=== PATIENT | male | born 1960 | race Hispanic/Latino ===

== ENCOUNTER 2019-09-15 10:13 | Emergency (ER) | payer OTHER ==
--- NOTE | 2019-09-15 10:38 | ER ---
Nurse's Notes [facility] Name: Noé Yang Age: 59 yrs Sex: Male : 1960 Arrival Date: 09/15/2019 Time: 10:20 Bed 19 Private MD: Diagnosis: Foreign body on external eye, part unspecified, right eye;Conjunctivitis Presentation: 09/14 10:31 Chief complaint: Patient states: R eye swelling and redness that began this morning. ss Coronavirus screen: Patient denies fever greater than 100.4F, cough, shortness of breath, or difficulty breathing. Proceed with normal triage process. Ebola Screen: Patient denies exposure to infectious person. Patient denies travel to an Ebola-affected area in the 21 days before illness onset. Initial Sepsis Screen: Does the patient meet any 2 criteria? No. Patient's initial sepsis screen is negative. Does the patient have a suspected source of infection? No. Patient's initial sepsis screen is negative. Risk Assessment: Do you want to hurt yourself or someone else? Patient reports no desire to harm self or others. 10:31 Method Of Arrival: Ambulatory ss 10:31 Acuity: ALVARO 5 ss Historical: - Allergies: 10:33 Actos; ss 10:33 metformin; ss 10:33 victoza; ss - Home Meds: 10:48 Victoza Sub Q [Active]; Novolin N Sub-Q [Active]; tw2 - PMHx: 10:33 Diabetes - IDDM; Hepatitis; ss - PSHx: 10:33 BKA; ss - Immunization history:: Adult Immunizations up to date. - Social history:: Smoking status: Patient denies any tobacco usage or history of. - Family history:: not pertinent. - Hospitalizations: : No recent hospitalization is reported. Screenin:26 Abuse screen: Denies threats or abuse. Nutritional screening: No deficits noted. tw2 Tuberculosis screening: No symptoms or risk factors identified. Fall Risk None identified. Assessment: 10:30 General: Appears in no apparent distress. slender, Behavior is calm, cooperative, tw2 appropriate for age. Pain: Denies pain. Neuro: Level of Consciousness is awake, alert, obeys commands, Oriented to person, place, time, situation. Cardiovascular: Patient's skin is warm and dry. Respiratory: Airway is patent Respiratory effort is even, unlabored, Respiratory pattern is regular, symmetrical. GI: No signs and/or symptoms were reported involving the gastrointestinal system. : No signs and/or symptoms were reported regarding the genitourinary system. EENT: Reports increased swelling and redness to eyes. Derm: No signs and/or symptoms reported regarding the dermatologic system. Musculoskeletal: Amputation of right knee. Range of motion:. 10:45 Reassessment: Patient appears in no apparent distress at this time. No changes from tw2 previously documented assessment. Patient and/or family updated on plan of care and expected duration. Pain level reassessed. Patient is alert, oriented x 3, equal unlabored respirations, skin warm/dry/pink. Vital Signs: 10:31 BP 135 / 84; Pulse 77; Resp 17; Temp 97.0(TE); Pulse Ox 100% on R/A; Weight 70.31 kg; ss Height 5 ft. 6 in. (167.64 cm); Pain 0/10; 10:31 Body Mass Index 25.02 (70.31 kg, 167.64 cm) ED Course: 10:20 Patient arrived in ED. mr 10:22 Philippe Rader MD is Attending Physician. rn 10:22 Bed in low position. tw2 10:25 France Lagos RN is Primary Nurse. tw2 10:32 Triage completed. ss 10:33 Arm band placed on right wrist. ss 10:45 No provider procedures requiring assistance completed. Patient did not have IV access tw2 during this emergency room visit. Administered Medications: No medications were administered Outcome: 10:37 Discharge ordered by . rn 10:45 Patient left the ED. tw2 10:45 Discharged to home ambulatory. tw2 10:45 Condition: stable 10:45 Discharge instructions given to patient, Instructed on discharge instructions, follow up and referral plans. Demonstrated understanding of instructions, follow-up care, medications, Prescriptions given X 1. Signatures: LuiPrincess mr Philippe Rader MD MD rn Smirch, Shelby, RN RN France Lagos RN RN tw2 Corrections: (The following items were deleted from the chart) 10:50 10:30 Musculoskeletal: Range of motion: intact in all extremities, tw2 tw2
--- NOTE | 2019-09-15 10:38 | EDPHYS ---
Physician Documentation [facility] Name: Noé Yang Age: 59 yrs Sex: Male : 1960 Arrival Date: 09/15/2019 Time: 10:20 Bed 19 Private MD: ED Physician Philippe Rader HPI: 09/14 10:31 This 59 yrs old Male presents to ER via Unassigned with complaints of Eye rn Swelling. 10:31 The patient is experiencing tearing, swelling, to the right eye, caused by an unknown rn mechanism. Onset: The symptoms/episode began/occurred yesterday. Duration: the symptoms are intermittent. Aggravated by nothing. Alleviated by nothing. Patient wears glasses. Severity of symptoms: At their worst the symptoms were mild in the emergency department the symptoms are unchanged. The patient has not experienced similar symptoms in the past. Reports was helping someone move stuff in storage room yesterday, thinks some dust or something might have gotten into eye, + mild clear drainage with small amount for swelling of eyelids. No fever. No splash of chemical noted, does not use contacts. . Historical: - Allergies: 10:33 Actos; ss 10:33 metformin; ss 10:33 victoza; ss - Home Meds: 10:48 Victoza Sub Q [Active]; Novolin N Sub-Q [Active]; tw2 - PMHx: 10:33 Diabetes - IDDM; Hepatitis; ss - PSHx: 10:33 BKA; ss - Immunization history:: Adult Immunizations up to date. - Social history:: Smoking status: Patient denies any tobacco usage or history of. - Family history:: not pertinent. - Hospitalizations: : No recent hospitalization is reported. ROS: 10:31 Constitutional: Negative for fever, chills, and weight loss, Eyes: + mild right eye rn swelling and clear drainage ENT: Negative for injury, pain, and discharge, Skin: Negative for injury, rash, and discoloration, Neuro: Negative for headache, weakness, numbness, tingling, and seizure. Exam: 10:31 Constitutional: This is a well developed, well nourished patient who is awake, alert, rn and in no acute distress. Head/Face: Normocephalic, atraumatic. Eyes: Pupils equal round and reactive to light, extra-ocular motions intact. + mild erythema of conjunctiva, + clear ocular drainage, no hyphema or hypopyon. + small black foreign body identified in periphery of lower eyelid, removed with cotton swab. Skin: warm, dry, no fluctuance/warmth/erythema surrounding right eye, no evidence of periorbital cellulitis. Vital Signs: 10:31 BP 135 / 84; Pulse 77; Resp 17; Temp 97.0(TE); Pulse Ox 100% on R/A; Weight 70.31 kg; ss Height 5 ft. 6 in. (167.64 cm); Pain 0/10; 10:31 Body Mass Index 25.02 (70.31 kg, 167.64 cm) ss Procedures: 10:31 Foreign Body Removal: dust, from the right eye, by using a cotton-tipped swab, The rn patient tolerated the removal well. MDM: 10:22 Patient medically screened. rn 10:31 Differential diagnosis: Foreign body in Data reviewed: vital signs, nurses notes, and rn as a result, I will discharge patient. Counseling: I had a detailed discussion with the patient and/or guardian regarding: the historical points, exam findings, and any diagnostic results supporting the discharge/admit diagnosis, the need for outpatient follow up, to return to the emergency department if symptoms worsen or persist or if there are any questions or concerns that arise at home. Special discussion: I discussed with the patient/guardian in detail that at this point there is no indication for admission to the hospital. It is understood, however, that if the symptoms persist or worsen the patient needs to return immediately for re-evaluation. Administered Medications: No medications were administered Disposition: 09/15/19 10:37 Discharged to Home. Impression: Foreign body on external eye, part unspecified, right eye, Conjunctivitis. - Condition is Stable. - Discharge Instructions: Bacterial Conjunctivitis, Viral Conjunctivitis. - Prescriptions for Vigamox 0.5 % Ophthalmic Drops - instill 1 drop by OPHTHALMIC route every 8 hours for 7 days; 5 milliliter. - Medication Reconciliation Form, Thank You Letter, Antibiotic Education, Prescription Opioid Use form. - Follow up: Private Physician; When: As needed; Reason: Recheck today's complaints, Re-evaluation by your physician. - Problem is new. - Symptoms have improved. Signatures: Rader, PhilippeMD MD rama Shelby, RN RN ss France Lagos RN RN tw2 Corrections: (The following items were deleted from the chart) 10:45 10:37 09/15/2019 10:37 Discharged to Home. Impression: Foreign body on external eye, tw2 part unspecified, right eye; Conjunctivitis. Condition is Stable. Forms are Medication Reconciliation Form, Thank You Letter, Antibiotic Education, Prescription Opioid Use. Follow up: Private Physician; When: As needed; Reason: Recheck today's complaints, Re-evaluation by your physician. Problem is new. Symptoms have improved. rn
[2019-09-15 10:50] VITALS: BP 135/84; TEMP 97; O2SAT 100
== END 2019-09-15 10:45 | disposition home or self-care (01) ==
LOC: ER 10:13
PROC: 08C0XZZ Extirpation of Matter from Right Eye, External Approach (ICD-10-PCS; principal; 2019-09-15)
DX: T15.91XA Foreign body on external eye, part unspecified, right eye, initial encounter (principal); H10.9 Unspecified conjunctivitis; E11.9 Type 2 diabetes mellitus without complications; Z79.4 Long term (current) use of insulin; Z88.8 Allergy status to other drugs, medicaments and biological substances
CPT/HCPCS: 99282

== ENCOUNTER 2020-09-16 18:19 | Observation (INO) | payer OTHER ==
--- OUTSIDE RECORDS SUMMARY | 2020-09-16 18:25 | XMS REPORT | Continuity of Care Document ---
:1960 Author Organization [facility] t Address [address] [place] [address] Care Team Providers Name Role Phone Unavailable Unavailable Unavailable Problems This patient has no known problems. Allergies, Adverse Reactions, Alerts This patient has no known allergies or adverse reactions. Medications This patient has no known medications. Procedures This patient has no known procedures. Encounters Start End Encounter Admission Attending Care Care Encounter Source Date/Time Date/Time Type Type Clinicians Facility Department ID 2020-08-13 2020-08-13 Outpatient [facility] [id number] [facility] 2020-07-19 2020-07-19 Outpatient [facility] [id number] [facility] 2020-07-12 2020-07-12 Outpatient [facility] [id number] [facility] 2020-07-12 2020-07-12 Outpatient [facility] [id number] [facility] Results This patient has no known results.
[2020-09-16] MEDS ORDERED: ONDANSETRON 4 MG (ODT) TAB ONE (19:03)
[2020-09-16 19:32] LABS: Absolute Lymphocytes (CBC) 0.7 K/uL (0.7-4.9); Basophils % 0.2 % (0-1.3); Hematocrit 40.2 % (39.6-49.0); Lymphocytes % 6.1 % (15.3-44.8); MPV 8.5 fL (7.6-11.3); RBC Red Blood Cell Count 4.22 M/uL (4.33-5.43)
[2020-09-16 19:50] LABS: ALT/SGPT 29 U/L (12-78); AST/SGOT 24 U/L (15-37); Albumin 3.9 g/dL (3.4-5.0); Alkaline Phosphatase 108 U/L (45-117); BUN Blood Urea Nitrogen 30 mg/dL (7-18); Bicarbonate 24 mmol/L (21-32); Bilirubin Direct 0.3 mg/dL (0-0.2); Bilirubin Total 1.2 mg/dL (0.2-1.0); Glucose Level 224 mg/dL (74-106); NT PRO-BNP 308 pg/mL (<125); Potassium 3.8 mmol/L (3.5-5.1); Protein, Total 8.4 g/dL (6.4-8.2); Sodium Level 139 mmol/L (136-145); Troponin (Emerg Dept Use Only) < 0.02 ng/mL (0.0-0.045)
[2020-09-16 20:01] LABS: Protime INR 1.09
--- NOTE | 2020-09-16 20:05 | RAD REPORT ---
EXAM DESCRIPTION: Cinthia Single View09/16/2020 7:33 pm CLINICAL HISTORY: Chest pain COMPARISON: 2017 FINDINGS: The lungs appear clear of acute infiltrate. The heart is normal size IMPRESSION: No acute abnormalities displayed
[2020-09-16] MEDS ORDERED: MORPHINE 4 MG/ML SYR ONE (20:08)
[2020-09-16] MEDS ORDERED: NA CHLORIDE 0.9% 1,000 ML ONE (20:08)
[2020-09-16] MEDS ORDERED: PROMETHAZINE INJ 25 MG/ML AMP ONE (20:10)
[2020-09-16] MEDS ORDERED: FAMOTIDINE 20 MG/2 ML VIAL IV ONE (20:25)
--- NOTE | 2020-09-16 21:25 | ER ---
Nurse's Notes [facility] Name: Noé Yang Age: 60 yrs Sex: Male : 1960 Arrival Date: 09/16/2020 Time: 18:27 Bed 23 Private MD: Omega Horan Diagnosis: Chest pain, unspecified Presentation: 09/16 18:33 Chief complaint: Patient states: N/V/D and CP with SOB for 2 days. + chills, no known ll1 fever. Coronavirus screen: Client denies travel out of the [place] in the last 14 days. chills, fatigue, headache, muscle pain, runny nose, sore throat, vomiting. Client presents with at least one sign or symptom that may indicate coronavirus-19. Standard/surgical mask placed on the client. Ebola Screen: Patient denies travel to an Ebola-affected area in the 21 days before illness onset. Initial Sepsis Screen: Does the patient meet any 2 criteria? HR > 90 bpm. No. Patient's initial sepsis screen is negative. Does the patient have a suspected source of infection? Yes: Acute abdominal pain. Risk Assessment: Do you want to hurt yourself or someone else? Patient reports no desire to harm self or others. Onset of symptoms was September 15, 2020. 18:33 Method Of Arrival: Ambulatory ll1 18:33 Acuity: ALVARO 2 ss Historical: - Allergies: 18:36 Actos; ll1 18:36 metformin; ll1 18:36 victoza; ll1 - PMHx: 18:36 Diabetes - IDDM; Hepatitis; Hypertension; ll1 - PSHx: 18:36 BKA; ll1 - Immunization history:: Flu vaccine is not up to date. - Social history:: Smoking status: Patient denies any tobacco usage or history of. Patient/guardian denies using alcohol, street drugs, The patient lives with family. - Family history:: not pertinent. Screenin:22 Abuse screen: Denies threats or abuse. Nutritional screening: No deficits noted. vg1 Tuberculosis screening: No symptoms or risk factors identified. Fall Risk No fall in past 12 months (0 pts). No secondary diagnosis (0 pts). IV access (20 points). Ambulatory Aid- None/Bed Rest/Nurse Assist (0 pts). Gait- Impaired (20 pts.). Mental Status- Oriented to own ability (0 pts). Total Mc Fall Scale indicates Low Risk Score (25-44 pts). Fall prevention measures have been instituted. Side Rails Up X 2 Placed close to Nursing Station. Assessment: 19:19 General: Appears in no apparent distress. uncomfortable, Behavior is calm, cooperative. vg1 Pain: Complains of pain in chest, right upper quadrant and right lower quadrant Pain currently is 8 out of 10 on a pain scale. Neuro: Level of Consciousness is awake, alert, obeys commands, Oriented to person, place, time, situation. Cardiovascular: Patient's skin is warm and dry. Respiratory: Airway is patent Respiratory effort is even, unlabored. GI: Bowel sounds present X 4 quads. Abd is soft X 4 quads Abdomen is tender to palpation in right upper quadrant and right lower quadrant. : No signs and/or symptoms were reported regarding the genitourinary system. EENT: No signs and/or symptoms were reported regarding the EENT system. Derm: Skin is intact, is healthy with good turgor. Musculoskeletal: Amputation of Right BKA and Left pointer finger. 19:50 Reassessment: Received VO from DR Means to administer Phenergan 25 mg IVP x1. vg1 20:22 Reassessment: Patient appears in no apparent distress at this time. No changes from vg1 previously documented assessment. Patient and/or family updated on plan of care and expected duration. Pain level reassessed. Patient is alert, oriented x 3, equal unlabored respirations, skin warm/dry/pink. 21:39 Reassessment: Patient appears in no apparent distress at this time. Patient and/or vg1 family updated on plan of care and expected duration. Pain level reassessed. Patient is alert, oriented x 3, equal unlabored respirations, skin warm/dry/pink. Patient states feeling better. 23:06 Reassessment: Pt c/o ABD and Chest pain, rates pain as 8/10. Provider notified. vg1 23:23 Reassessment: Received VO from Latrell Avtar to change order of Aspirin 325 mg PO x1 to vg1 Aspirin chewable 324 mg PO x1. 09/17 00:30 Reassessment: Patient appears in no apparent distress at this time. Patient is alert, rr5 oriented x 3, equal unlabored respirations, skin warm/dry/pink. no complaints made. 01:20 Reassessment: Patient appears in no apparent distress at this time. Patient is alert, rr5 oriented x 3, equal unlabored respirations, skin warm/dry/pink. 02:25 Reassessment: Patient appears in no apparent distress at this time. Patient is alert, rr5 oriented x 3, equal unlabored respirations, skin warm/dry/pink. hospitalist informed for the BP 182/97 with order made and carried out. patient agreed to get medication for his BP. Vital Signs: 09/16 18:33 BP 188 / 96; Pulse 103; Resp 17; Temp 98.7; Pulse Ox 100% ; Weight 70.31 kg; Height 5 ll1 ft. 6 in. (167.64 cm); Pain 7/10; 19:21 BP 190 / 101; Pulse 103; Resp 20; Pulse Ox 100% on R/A; vg1 20:00 BP 168 / 88; Pulse 97; Resp 18; Pulse Ox 98% on R/A; vg1 21:00 BP 190 / 101; Pulse 90; Resp 22; Pulse Ox 98% on R/A; vg1 22:07 BP 199 / 101; Pulse 101; Resp 22; Pulse Ox 98% on R/A; vg1 23:00 BP 181 / 98; Pulse 98; Resp 18; Pulse Ox 98% on R/A; vg1 23:52 BP 163 / 80; Pulse 97; Resp 18; Pulse Ox 97% on R/A; vg1 09/17 01:20 BP 175 / 90; Pulse 92; Resp 17; Pulse Ox 98% ; rr5 02:23 BP 182 / 97; Pulse 99; Resp 19; Pulse Ox 97% ; rr5 02:36 BP 161 / 82; rr5 09/16 18:33 Body Mass Index 25.02 (70.31 kg, 167.64 cm) ll1 ED Course: 09/16 18:27 Patient arrived in ED. mr 18:27 Omega Horan, is Private Physician. mr 18:35 Triage completed. ll1 18:36 Arm band placed on. ll1 18:42 EKG completed in triage. Results shown to MD. ss 19:01 Sharath Means MD is Attending Physician. ma2 19:10 Jacey Llanos, KEYLA is Primary Nurse. vg1 19:15 Inserted saline lock: 22 gauge in right forearm, using aseptic technique. Blood ll1 collected. 19:22 Patient has correct armband on for positive identification. Placed in gown. Call light vg1 in reach. Side rails up X 1. 19:33 XRAY Chest (1 view) In Process Unspecified. EDMS 21:24 Sharath Means MD is Hospitalizing Provider. ma2 21:25 Hospitalizing Provider role handed off by Sharath Means MD ma2 21:25 Konrad Jeffries DO is Hospitalizing Provider. ma2 23:26 EKG done, by ED staff, reviewed by Sharath Means MD. vg1 23:[address] via stretcher. vg1 23:55 CT Abd/Pelvis - IV Contrast Only In Process Unspecified. EDMS 09/17 00:00 Report given to KEYLA Albarado. vg1 02:24 No provider procedures requiring assistance completed. Patient admitted, IV remains in rr5 place. intact, No redness/swelling at site. Administered Medications: 09/16 18:46 Drug: Zofran (Ondansetron) 4 mg Route: PO; ss 21:40 Follow up: Response: No adverse reaction vg1 20:05 Drug: NS 0.9% 1000 ml Route: IV; Rate: 1 bolus; Site: right antecubital; vg1 21:40 Follow up: IV Status: Completed infusion vg1 20:05 Drug: morphine 4 mg Route: IVP; Site: right antecubital; vg1 21:40 Follow up: Response: Pain is decreased vg1 20:06 Drug: Phenergan 25 mg Route: IVP; Site: right antecubital; vg1 21:40 Follow up: Response: Nausea is decreased vg1 20:11 Drug: Pepcid (famotidine) 20 mg Route: IVP; Site: right antecubital; vg1 21:40 Follow up: Response: No adverse reaction vg1 23:24 Not Given (Provider changed order): Aspirin 325 mg PO once vg1 23:34 Drug: Nitroglycerin 0.4 mg Route: Sublingual; vg1 09/17 00:30 Follow up: Response: No adverse reaction rr5 09/16 23:34 Drug: Aspirin Chewable Tablet 324 mg Route: PO; vg1 09/17 02:37 Follow up: Response: No adverse reaction rr5 02:35 Drug: hydrALAZINE 10 mg Route: IV; Rate: bolus; Site: right antecubital; rr5 02:38 Follow up: Response: Blood pressure is lowered; IV Status: Completed infusion rr5 Outcome: 09/16 21:25 Decision to Hospitalize by Provider. ma2 09/17 02:34 Admitted to Med/surg accompanied by tech, via stretcher, room 224, with chart, Report rr5 called to sreedhar Condition: stable Instructed on the need for admit. 02:47 Patient left the ED. rr5 Signatures: Dispatcher [employer] EDMI LuiPrincess oquendo mr Shruthi Huddleston, RN RN ss Sharath Means MD MD va2 Per Kay RN RN rr5 Jacey Llanos RN RN vg1 Lary Moeller RN RN ll1 Corrections: (The following items were deleted from the chart) 09/16 18:42 18:33 Acuity: ALVARO 3 ll1
--- NOTE | 2020-09-16 21:25 | EDPHYS ---
Physician Documentation [facility] Name: Noé Yang Age: 60 yrs Sex: Male : 1960 Arrival Date: 09/16/2020 Time: 18:27 Bed 23 Private MD: [facility] ED Physician Sharath Means HPI: 09/16 19:33 This 60 yrs old Male presents to ER via Ambulatory with complaints of ma2 Abdominal Pain, Chest Pain, Nausea/Vomiting. 19:33 The patient or guardian reports chest pain that is located primarily in the substernal ma2 area. Onset: gradually, 2 day(s) ago. Associated signs and symptoms: Pertinent negatives: abdominal pain, diaphoresis, headache, lower extremity pain. Severity of pain: At its worst the pain was moderate in the emergency department the pain is unchanged. The patient has experienced similar episodes in the past. Historical: - Allergies: 18:36 Actos; ll1 18:36 metformin; ll1 18:36 victoza; ll1 - PMHx: 18:36 Diabetes - IDDM; Hepatitis; Hypertension; ll1 - PSHx: 18:36 BKA; ll1 - Immunization history:: Flu vaccine is not up to date. - Social history:: Smoking status: Patient denies any tobacco usage or history of. Patient/guardian denies using alcohol, street drugs, The patient lives with family. - Family history:: not pertinent. ROS: 19:33 Constitutional: Negative for fever, chills, and weight loss. ma2 19:33 All other systems are negative. Exam: 18:45 Constitutional: This is a well developed, well nourished patient who is awake, alert, kdr and in no acute distress. 18:45 ECG was reviewed by the Attending Physician. 19:33 Head/Face: Normocephalic, atraumatic. Eyes: Pupils equal round and reactive to light, ma2 extra-ocular motions intact. Lids and lashes normal. Conjunctiva and sclera are non-icteric and not injected. Cornea within normal limits. Periorbital areas with no swelling, redness, or edema. ENT: Nares patent. No nasal discharge, no septal abnormalities noted. Tympanic membranes are normal and external auditory canals are clear. Oropharynx with no redness, swelling, or masses, exudates, or evidence of obstruction, uvula midline. Mucous membranes moist. Neck: Trachea midline, no thyromegaly or masses palpated, and no cervical lymphadenopathy. Supple, full range of motion without nuchal rigidity, or vertebral point tenderness. No Meningismus. Chest/axilla: Normal chest wall appearance and motion. Nontender with no deformity. No lesions are appreciated. Cardiovascular: Regular rate and rhythm with a normal S1 and S2. No gallops, murmurs, or rubs. Normal PMI, no JVD. No pulse deficits. Respiratory: Lungs have equal breath sounds bilaterally, clear to auscultation and percussion. No rales, rhonchi or wheezes noted. No increased work of breathing, no retractions or nasal flaring. Abdomen/GI: Soft, non-tender, with normal bowel sounds. No distension or tympany. No guarding or rebound. No evidence of tenderness throughout. Skin: Warm, dry with normal turgor. Normal color with no rashes, no lesions, and no evidence of cellulitis. MS/ Extremity: Pulses equal, no cyanosis. Neurovascular intact. Full, normal range of motion. Neuro: Awake and alert, GCS 15, oriented to person, place, time, and situation. Cranial nerves II-XII grossly intact. Motor strength 5/5 in all extremities. Sensory grossly intact. Cerebellar exam normal. Normal gait. Vital Signs: 18:33 BP 188 / 96; Pulse 103; Resp 17; Temp 98.7; Pulse Ox 100% ; Weight 70.31 kg; Height 5 ll1 ft. 6 in. (167.64 cm); Pain 7/10; 19:21 BP 190 / 101; Pulse 103; Resp 20; Pulse Ox 100% on R/A; vg1 20:00 BP 168 / 88; Pulse 97; Resp 18; Pulse Ox 98% on R/A; vg1 21:00 BP 190 / 101; Pulse 90; Resp 22; Pulse Ox 98% on R/A; vg1 22:07 BP 199 / 101; Pulse 101; Resp 22; Pulse Ox 98% on R/A; vg1 23:00 BP 181 / 98; Pulse 98; Resp 18; Pulse Ox 98% on R/A; vg1 23:52 BP 163 / 80; Pulse 97; Resp 18; Pulse Ox 97% on R/A; vg1 03/27 01:20 BP 175 / 90; Pulse 92; Resp 17; Pulse Ox 98% ; rr5 02:23 BP 182 / 97; Pulse 99; Resp 19; Pulse Ox 97% ; rr5 02:36 BP 161 / 82; rr5 09/16 18:33 Body Mass Index 25.02 (70.31 kg, 167.64 cm) ll1 MDM: 09/16 19:04 Patient medically screened. ma2 19:33 Differential diagnosis: chest wall pain, costochondritis, esophagitis, gastritis, ma2 gastroesophageal reflux disease (GERD). 21:19 HEART Score: History: Moderately Suspicious (1), ECG: Normal (0), Age: > 45 and < 65 ma2 years (1), Troponin: < or = 1 x Normal Limit (0), Total Score = 4. The patient was not given aspirin in the Emergency Department. Not indicated due to patient's past medical history. Data reviewed: vital signs, nurses notes, EMS record, lab test result(s), EKG. Counseling: I had a detailed discussion with the patient and/or guardian regarding: the historical points, exam findings, and any diagnostic results supporting the discharge/admit diagnosis, the presence of at least one elevated blood pressure reading (>120/80) during this emergency department visit, the need for outpatient follow up. 09/16 19:01 Order name: Basic Metabolic Panel [facility] 09/16 19:01 Order name: CBC with Diff; Complete Time: 20:58 [facility] 09/16 19:01 Order name: LFT's; Complete Time: 20:58 [facility] 09/16 19:01 Order name: Magnesium; Complete Time: 20:58 [facility] 09/16 19:01 Order name: NT PRO-BNP; Complete Time: 20:58 [facility] 09/16 19:01 Order name: PT-INR; Complete Time: 20:58 [facility] 09/16 19:01 Order name: Troponin (emerg Dept Use Only); Complete Time: 20:58 [facility] 09/16 19:01 Order name: XRAY Chest (1 view); Complete Time: 20:58 [facility] 09/16 19:02 Order name: Basic Metabolic Panel; Complete Time: 20:58 [facility] 09/16 19:27 Order name: Type And Screen [facility] 09/16 21:27 Order name: ABO/RH no charge [facility] 09/16 23:10 Order name: SARS-COV-2 RT PCR EDND 09/16 23:20 Order name: CT Abd/Pelvis - IV Contrast Only rv 09/16 18:42 Order name: EKG; Complete Time: 18:42 09/16 19:01 Order name: Cardiac monitoring; Complete Time: 19:12 ut2 09/16 19:01 Order name: EKG - Nurse/Tech; Complete Time: 19:12 [facility] 09/16 19:01 Order name: IV Saline Lock; Complete Time: 19:18 ma2 09/16 19:01 Order name: Labs collected and sent; Complete Time: 19:18 ma2 09/16 19:01 Order name: O2 Per Protocol; Complete Time: 19:13 ut2 09/17 01:49 Order name: CONS Physician Consult [facility] 09/16 19:01 Order name: O2 Sat Monitoring; Complete Time: 19:13 ma2 EC:45 Rate is 103 beats/min. Rhythm is regular, Sinus tachycardia with Occasional PVCs. QRS kdr Galt is Normal. OK interval is normal. QRS interval is normal. QT interval is normal. Clinical impression: NSR w/ Non-specific ST/T Changes and Sinus tachycardia. Administered Medications: 18:46 Drug: Zofran (Ondansetron) 4 mg Route: PO; 21:40 Follow up: Response: No adverse reaction vg1 20:05 Drug: NS 0.9% 1000 ml Route: IV; Rate: 1 bolus; Site: right antecubital; vg1 21:40 Follow up: IV Status: Completed infusion vg1 20:05 Drug: morphine 4 mg Route: IVP; Site: right antecubital; vg1 21:40 Follow up: Response: Pain is decreased vg1 20:06 Drug: Phenergan 25 mg Route: IVP; Site: right antecubital; vg1 21:40 Follow up: Response: Nausea is decreased vg1 20:11 Drug: Pepcid (famotidine) 20 mg Route: IVP; Site: right antecubital; vg1 21:40 Follow up: Response: No adverse reaction vg1 23:24 Not Given (Provider changed order): Aspirin 325 mg PO once vg1 23:34 Drug: Nitroglycerin 0.4 mg Route: Sublingual; vg1 09/17 00:30 Follow up: Response: No adverse reaction rr5 09/16 23:34 Drug: Aspirin Chewable Tablet 324 mg Route: PO; vg1 09/17 02:37 Follow up: Response: No adverse reaction rr5 02:35 Drug: hydrALAZINE 10 mg Route: IV; Rate: bolus; Site: right antecubital; rr5 02:38 Follow up: Response: Blood pressure is lowered; IV Status: Completed infusion rr5 Disposition: 09/16/20 21:25 Hospitalization ordered by Konrad Jeffries for Observation. Preliminary diagnosis is Chest pain, unspecified. - Bed requested for Telemetry/MedSurg (observation). - Status is Observation. rr5 - Condition is Stable. - Problem is new. - Symptoms are unchanged. Signatures: Dispatcher [employer] EDND Maddie Torres, RN RN Yoshi Maddox MD MD kdr Smirch, Shelby, RN RN Sharath Means MD MD ma2 Jeffry Carlos RN Per Martinez RN RN rr5 Jacey Llanos RN RN vg1 Lary Moeller RN KEYLA ll1 Corrections: (The following items were deleted from the chart) 09/16 21:25 21:25 Hospitalization Ordered by Sharath Means MD for Observation. Preliminary ut2 diagnosis is Chest pain, unspecified. Bed requested for Telemetry/MedSurg (observation). Status is Observation. Condition is Stable. Problem is new. Symptoms are unchanged. [facility] 22:29 21:50 CORONAVIRUS+MR.LAB.BRZ ordered. [facility] 09/17 02:10 09/16 21:25 09/16/2020 21:25 Hospitalization Ordered by Konrad Jeffries DO for lavon Observation. Preliminary diagnosis is Chest pain, unspecified. Bed requested for Telemetry/MedSurg (observation). Status is Observation. Condition is Stable. Problem is new. Symptoms are unchanged. [facility] 09/17 02:47 02:10 09/16/2020 21:25 Hospitalization Ordered by Konrad Jeffries DO for Observation. rr5 Preliminary diagnosis is Chest pain, unspecified. Bed requested for Telemetry/MedSurg (observation). Status is Observation. Condition is Stable. Problem is new. Symptoms are unchanged. mw
[2020-09-16] MEDS ORDERED: NITROGLYCERIN 0.4 MG/TAB SL ONE (23:46)
[2020-09-16] MEDS ORDERED: ASPIRIN 81 MG CHEWABLE TABLET ONE (23:47)
[2020-09-17] MEDS ORDERED: HYDRALAZINE HCL 20 MG/ML VIAL ONE (02:46)
[2020-09-17] MEDS ORDERED: ACETAMINOPHEN 500 MG TAB PO PRN (02:58)
[2020-09-17] MEDS ORDERED: ZOLPIDEM TARTRATE 5 MG TABLET PO ONE (02:58)
[2020-09-17] MEDS ORDERED: NITROGLYCERIN 0.4 MG/TAB SL PRN (02:58)
[2020-09-17] MEDS: MORPHINE 2 MG/ML SYR IV PRN ×3 (03:10→19:28)
[2020-09-17 03:30] VITALS: BMI 23.4
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
[2020-09-17 04:55] LABS: Urine Appearance CLEAR; Urine Bilirubin NEGATIVE (NEG); Urine Blood 2+ (Negative); Urine Color YELLOW; Urine Glucose 1+ (Negative); Urine Protein 3+ (NEG); Urine Specific Gravity >=1.030 (1.005-1.030); Urine Urobilinogen 0.2 mg/dL (0.2-1.0); Urine pH 5.5 (5.0-7.0)
[2020-09-17 04:59] LABS: Urine Microscopic Reflex ORDER UMIC
[2020-09-17 05:14] LABS: Urine Bacteria 20-50 /HPF (NONE SEEN); Urine Mucus 1+ /HPF (NONE SEEN)
[2020-09-17 05:17] LABS: Barbiturates NEGATIVE (NEGATIVE); Benzodiazepines NEGATIVE (NEGATIVE); Cocaine NEGATIVE (NEGATIVE); METHAMPHETAM NEGATIVE (NEGATIVE); Methadone NEGATIVE (NEGATIVE); Opiates POSITIVE (NEGATIVE); Phencyclidine NEGATIVE (NEGATIVE); THC Cannibis POSITIVE (NEGATIVE)
[2020-09-17 05:40] LABS: Thyroid Stimulating Hormone 0.226 uIU/mL (0.360-3.740); Troponin I < 0.02 ng/mL (0.0-0.045)
[2020-09-17] MEDS ORDERED: POTASSIUM 25 MEQ EFFERV TAB PO ONE (06:02)
[2020-09-17] MEDS: METOPROLOL TAR 25 MG TAB PO SCH ×2 (06:18→17:17)
[2020-09-17] MEDS: ONDANSETRON 4 MG/2 ML VIAL IV PRN ×3 (06:37→21:46)
[2020-09-17] MEDS: INSULIN -REGULAR HUMAN 50 UNIT/0.5 ML ML SQ SCH ×4 (07:30→20:12)
[2020-09-17] MEDS: lisinopriL 20 MG TAB PO SCH (10:07)
[2020-09-17] MEDS: ASPIRIN EC 81 MG TAB PO SCH (10:07)
[2020-09-17] MEDS: ENOXAPARIN 40 MG/0.4 ML SQ SCH (10:07)
--- NOTE | 2020-09-17 11:11 | EKG ---
Test Date: 2020-09-16 Test Time: 23:18:20 Plate Put In Worker: CANDY MEASUREMENT RESULTS: Intervals: Rate: 100 IL: 166 QRSD: 90 QT: 366 QTc: 472 Rew: P: 81 IL: 166 QRS: 33 T: 66 INTERPRETIVE STATEMENTS: Normal sinus rhythm Right atrial enlargement Borderline ECG Compared to ECG 12/09/2015 06:34:01 Atrial abnormality now present Left anterior fascicular block no longer present Electronically Signed On 09-17-20 11:11:04 CDT by Moris Cervantes
[2020-09-17] MEDS: PANTOPRAZOLE 40 MG INJ IVP SCH ×2 (11:57→20:17)
[2020-09-17] MEDS ORDERED: SODIUM CHLORIDE 0.9% 10ML INJ IV PRN (11:57)
--- NOTE | 2020-09-17 13:54 | CON ---
Date of Consultation: 09/17/2020 Reason For Consultation: Atypical chest pain, abdominal pain, nausea and vomiting. History Of Present Illness: Mr. Yang is a 60-year-old [place] male who has a history of h ypertension, dyslipidemia, and diabetes. He is status post BKA. He has history of hepatitis. He se es Dr. Andreas Horan now, but he used to live in [place] and just moved here. He is now living in a small trailer in somebody else's yard. Came in with mid-epigastric pain, nausea, vomiting. No jazmine phoresis. No shortness of breath. Denied PND, orthopnea, pedal edema, palpitations, or syncope. He does not have any cardiac history in the past. He was positive for opiates and positive for THC on his drug screen. He had a negative troponin. His white count is 11, BNP 308. TSH is 0.221. Glucos e is 199. He is asymptomatic right now and he wants to go home. Past Medical History: As stated above. Allergies: METFORMIN, PIOGLITAZONE, AND VICTOZA. Review of Systems: Negative. Social History: Positive for tobacco and drug use. Family History: Noncontributory. Medications: At home include aspirin, insulin, and lisinopril. Physical Examination: General: Very pleasant, no acute distress. Vital Signs: Stable. Afebrile. Sinus rhythm. HEENT: Negative. Neck: Supple without any lymphadenopathy, JVD, thyromegaly, or bruit. Abdomen: Benign. Extremities: Revealed right BKA. Diagnostic Data: As stated above. EKG is nonspecific. Chest x-ray is normal. Impression And Plan: This is a patient with diabetes, hypertension, dyslipidemia, very high risk for heart disease, atypical chest pain most likely related to gastroesophageal reflux disease and maybe drug use. I am comfortable with Mr. Yang going home today on his home medication plus a proton p ump inhibitor. His thyroid level may need to be followed as an outpatient. I think he needs to have an outpatient echocardiogram and Lexiscan. I am comfortable with him going home today and I can rosina e arrangements for an outpatient followup in the near future. GOPAL/TEE Voice ID: [id number] Report ID: [id number]
--- NOTE | 2020-09-17 14:21 | P.PN ---
Date of Service: 09/17/20 Patient seen and examined. He did not tolerate lunch and has been dry heaving. Patient seen by cardiology-Dr. Cervantes. Troponin is negative. Chest pain Gastritis DM type 2. Plan: Will treat for gastritis with IV protonix. Considering IV Reglan for gastroparesis. Patient with significant CAD risk factors. Outpatient stress test per cardiology. Insulin sliding scale for glucose management.
[2020-09-17] MEDS ORDERED: METOCLOPRAMIDE 10 MG/2mL INJ IV PRN (14:47)
--- NOTE | 2020-09-17 19:58 | RAD REPORT ---
EXAM DESCRIPTION: CT - Abdomen Pelvis W Contrast - 09/17/2020 6:32 am CLINICAL HISTORY: ABD PAIN. COMPARISON: CT of the abdomen and pelvis from December 17, 2016. TECHNIQUE: CT of the abdomen and pelvis was performed following intravenous administration of iodina alejandra contrast. Arterial phase images through the abdomen and portal venous phase images of the abdomen and pelvis were obtained. Oral contrast was not administered. Axial, coronal, and sagittal soft tiss ue window reconstructions were created and sent to PACS. This exam was performed according to our departmental dose-optimization program, which includes autom ated exposure control, adjustment of the mA and/or kV according to patient size and/or use of iterati ve reconstruction technique. FINDINGS: Thoracic: No significant abnormality. Hepatobiliary: Unchanged rounded nodule abutting the inferior margin of the right hepatic lobe adjace nt to (but separate from) the gallbladder fundus which measures 1.8 x 2.2 x 1.3 cm (AP x TV x CC), an d demonstrates heterogeneous densities, including a slightly low-density center and a small calcifica tion. The hepatic and portal veins are patent. Calcified gallstones in the gallbladder. No gallbladde r wall thickening or associated inflammatory changes. No biliary ductal dilatation. Pancreas: Unremarkable. Spleen: Unremarkable. Gastrointestinal: No evidence of bowel obstruction or perienteric inflammation. The appendix is yordan l. Small to moderate amount of fecal material in the colon. Adrenals: No abnormality identified in either adrenal gland. Renal: No concerning parenchymal abnormality in either kidney. No hydronephrosis or urolithiasis. Bladder/Reproductive: Unremarkable appearance of the urinary bladder by CT technique. Mild prostatome rafael. Vascular/Lymphatics: No lymphadenopathy identified by CT size criteria. Abdominal aorta is normal in caliber. The major visceral vessels are patent. Musculoskeletal: No concerning osseous lesion identified. L5-S1 disc and endplate degenerative change s. Degenerative grade 1 anterolisthesis at L4-5. Fluid / peritoneum: No significant free fluid. No free intraperitoneal air identified. IMPRESSION 1. No acute abnormality identified in the abdomen or pelvis. 2. Cholelithiasis without evidence of acute cholecystitis. 3. Small rounded nodule abutting the inferior margin of the right hepatic lobe, unchanged since 201 7. Consider further evaluation with nonemergent MRI, if clinically necessary. Electronically signed by: Yoli Winston MD 09/17/2020 12:13 AM CDT Due to temporary technical issues with the PACS/Fluency reporting system, reports are being signed by the in house radiologists without review as a courtesy to insure prompt reporting. The interpreting radiologist is fully responsible for the content of the report.
[2020-09-17] MEDS ORDERED: MELATONIN 5 MG TABLET PO PRN (21:45)
[2020-09-18] MEDS: MORPHINE 2 MG/ML SYR IV PRN ×2 (02:12→09:01)
[2020-09-18] MEDS ORDERED: HYDRALAZINE HCL 20 MG/ML VIAL IV PRN (03:48)
[2020-09-18] MEDS: METOPROLOL TAR 25 MG TAB PO SCH ×2 (06:00→12:06)
[2020-09-18 06:19] LABS: Absolute Lymphocytes (CBC) 1.5 K/uL (0.7-4.9); Basophils % 0.3 % (0-1.3); Hematocrit 38.4 % (39.6-49.0); Lymphocytes % 16.6 % (15.3-44.8); MPV 8.9 fL (7.6-11.3); RBC Red Blood Cell Count 4.07 M/uL (4.33-5.43)
[2020-09-18 06:43] LABS: Albumin 3.4 g/dL (3.4-5.0); Bilirubin Total 1.3 mg/dL (0.2-1.0); Magnesium 2.2 mg/dL (1.8-2.4); Phosphorus 2.6 mg/dL (2.5-4.9); Potassium 3.8 mmol/L (3.5-5.1); Protein, Total 7.2 g/dL (6.4-8.2)
[2020-09-18] MEDS: INSULIN -REGULAR HUMAN 50 UNIT/0.5 ML ML SQ SCH ×2 (07:30→11:55)
[2020-09-18 09:00] VITALS: O2SAT 98
[2020-09-18] MEDS ORDERED: POTASSIUM CL SA 10 MEQ TAB PO ONE (09:00)
[2020-09-18] MEDS: PANTOPRAZOLE 40 MG INJ IVP SCH (09:01)
[2020-09-18] MEDS: ENOXAPARIN 40 MG/0.4 ML SQ SCH (09:01)
[2020-09-18] MEDS: lisinopriL 20 MG TAB PO SCH (09:01)
[2020-09-18] MEDS: ASPIRIN EC 81 MG TAB PO SCH (09:01)
--- NOTE | 2020-09-18 11:11 | P.DS ---
Admission Date: 09/17/20 Discharge Date: 09/18/20 Primary Care Provider: Dr. Horan Disposition: ROUTINE DISCHARGE Discharge Condition: FAIR Reason for Admission: chest pain - Problems (1) Nausea & vomiting Current Visit: Yes Status: Acute (2) Hypertension Current Visit: Yes Status: Acute (3) Chest pain Onset Date: 12/08/15 Current Visit: No Status: Acute Qualifiers: Chest pain type: unspecified Qualified Code(s): R07.9 - Chest pain, unspecified (4) Diabetes Current Visit: No Status: Chronic Qualifiers: Diabetes mellitus type: type 2 Diabetes mellitus skilled nursing insulin use: with skilled nursing use Diabetes mellitus complication status: without complication Qualified Code(s): E11.9 - Type 2 diabetes mellitus without complications; 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 Patient also reported abdominal pain heart burn, nausea and vomiting and not able to hold any food or drink in. His initial troponin in the ED negative. EKG showed normal sinus rhythm with right atrial enlargement. Chest x-ray unremarkable. CT abdomen and pelvis done reported cholelithiasis without evidence of cholecystitis. Patient was hospitalized for further management. Hospital Course: Patient placed under observation on the medical floor. Troponin trended negative. He continued to experience nausea and vomiting and was not able to hold anything in. Patient seen and evaluated by cardiology-Dr. Cevrantes who recommended further outpatient workup with echocardiogram and stress test. Patient was treated with IV Protonix for possible gastritis and also Reglan for possible gastroparesis. His symptoms improved patient was able to tolerate diet. His blood pressure fluctuated from systolic of 98-188. Patient is on lisinopril which was continued during the hospital stay. Was put on metoprolol here but this is discontinued given the fluctuating blood pressure. He is prescribed hydralazine to use p.r.n. for severe hypertension. Patient will follow with Dr. Cervantes within 1 week for further cardiac evaluation. Vital Signs/Physical Exam: Temp Pulse Resp BP Pulse Ox 98.8 F 93 H 18 122/73 97 09/18/20 08:00 09/18/20 09:01 09/18/20 09:31 09/18/20 09:01 09/18/20 09:31 General: Alert, In no apparent distress HEENT: Mucous membr. moist/pink Neck: Supple, JVD not distended Respiratory: Clear to auscultation bilaterally, Normal air movement Cardiovascular: No edema, Regular rate/rhythm, Normal S1 S2 Gastrointestinal: Normal bowel sounds, Soft and benign, Non-distended, No tenderness Musculoskeletal: No swelling, No tenderness Integumentary: No rashes Neurological: Normal strength at 5/5 x4 extr, Cranial nerves 3-12 intact Laboratory Data at Discharge: WBC 8.80 K/uL (4.3-10.9) D 09/18/20 05:01 Hgb 13.5 g/dL (13.6-17.9) L 09/18/20 05:01 Hct 38.4 % (39.6-49.0) L 09/18/20 05:01 Plt Count 213 K/uL (152-406) 09/18/20 05:01 PT 12.5 SECONDS (9.5-12.5) 09/16/20 19:15 INR 1.09 09/16/20 19:15 Sodium 138 mmol/L (136-145) 09/18/20 05:01 Potassium 3.8 mmol/L (3.5-5.1) 09/18/20 05:01 BUN 34 mg/dL (7-18) H 09/18/20 05:01 Creatinine 1.15 mg/dL (0.55-1.3) 09/18/20 05:01 Glucose 172 mg/dL (74-106) H 09/18/20 05:01 Phosphorus 2.6 mg/dL (2.5-4.9) 09/18/20 05:01 Magnesium 2.2 mg/dL (1.8-2.4) 09/18/20 05:01 Total Bilirubin 1.3 mg/dL (0.2-1.0) H 09/18/20 05:01 AST 39 U/L (15-37) H 09/18/20 05:01 ALT 32 U/L (12-78) 09/18/20 05:01 Alkaline Phosphatase 93 U/L (45-117) 09/18/20 05:01 Troponin I Cancelled 09/17/20 11:00 Triglycerides 86 mg/dL (<150) 09/18/20 05:01 Cholesterol 164 mg/dL (<200) 09/18/20 05:01 HDL Cholesterol 54 mg/dL (40-60) 09/18/20 05:01 Cholesterol/HDL Ratio 3.04 09/18/20 05:01 Home Medications: Insulin NPH Human [Novolin N (Humulin N)*] See Protocol SQ BEDTIME 12/08/15 Multivit-Mins/Iron/Folic/Lycop [Centrum Ultra Men's Tablet] 1 tab PO DAILY 08/17/16 Aspirin [Lo-Dose Aspirin EC] 1 tab PO DAILY 09/17/20 lisinopriL [Prinivil*] 20 mg PO DAILY 09/17/20 Hydralazine [Apresoline*] 25 mg PO BID PRN #30 tab 09/18/20 Metoclopramide [Reglan] 5 mg PO TID #30 tab 09/18/20 Pantoprazole [Protonix Tab] 40 mg PO BID #60 tab 09/18/20 New Medications: Hydralazine [Apresoline*] 25 mg PO BID PRN #30 tab PRN Reason: Systolic BP >160 Pantoprazole [Protonix Tab] 40 mg PO BID #60 tab Metoclopramide [Reglan] 5 mg PO TID #30 tab Diet: ADA Activity: Ad nadine Followup: Omega Horan DO [Primary Care Provider] - Moris Cervantes MD [ACTIVE - CAN ADMIT] - 1 Week
[2020-09-18] MEDS: ONDANSETRON 4 MG/2 ML VIAL IV PRN (11:56)
[2020-09-18 12:06] VITALS: BP 170/100
[2020-09-18 13:01] VITALS: TEMP 98.6
== END 2020-09-18 12:53 | disposition home or self-care (01) ==
LOC: ER 18:19 → 2ND 09-17 01:48
PROVIDERS: ADMIT Internal Medicine; ATTEND Internal Medicine
DX: R07.89 Other chest pain (principal); K29.70 Gastritis, unspecified, without bleeding; I10 Essential (primary) hypertension; E11.43 Type 2 diabetes mellitus with diabetic autonomic (poly)neuropathy; K31.84 Gastroparesis; K21.9 Gastro-esophageal reflux disease without esophagitis; E78.5 Hyperlipidemia, unspecified; K80.20 Calculus of gallbladder without cholecystitis without obstruction; F11.90 Opioid use, unspecified, uncomplicated; F12.90 Cannabis use, unspecified, uncomplicated; Z72.0 Tobacco use; Z20.822 Contact with and (suspected) exposure to COVID-19; Z79.4 Long term (current) use of insulin; Z79.82 Long term (current) use of aspirin; Z88.8 Allergy status to other drugs, medicaments and biological substances; Z89.511 Acquired absence of right leg below knee
CPT/HCPCS: 96361; 93005 ×2; 87088; 85025 ×2; 87086; 80048; 36415 ×2; 86900; 83735 ×2; 86850; 84100; 85610; 80061; 86901; 82947 ×6; 80076; 80307 ×8; 84443; 84484 ×3; 84439; 80053; 83880; 74177; 71045; 94760 ×4; 96375; 96374; 99285; U0003; Q9967; J0360 ×2; J2765; J2550; C9113 ×3; J1650 ×2; J2270 ×5; J7030; J2405 ×4; 81003; 81015; G0378

== ENCOUNTER 2020-11-05 07:20 | Inpatient (IN) | payer OTHER ==
--- OUTSIDE RECORDS SUMMARY | 2020-11-05 07:23 | XMS REPORT | Continuity of Care Document ---
:1960 Author Organization [facility] t Address [address] [place] [address] Care Team Providers Name Role Phone Unavailable [...] Clinicians Facility Department ID 2020-08-13 2020-08-13 Outpatient [facility] [id number] [facility] 2020-07-19 2020-07-19 Outpatient [facility] [id number] [facility] 2020-07-12 2020-07-12 Outpatient [facility] [id number] [facility] 2020-07-12 2020-07-12 Outpatient [facility] [id number] [facility] Results This patient has no known results.
[2020-11-05 08:25] LABS: Basophils % 0.4 % (0-1.3); Hematocrit 43.6 % (39.6-49.0); Lymphocytes % 6.8 % (15.3-44.8); MPV 8.5 fL (7.6-11.3); RBC Red Blood Cell Count 4.54 M/uL (4.33-5.43)
[2020-11-05 08:28] LABS: Protime INR 1.03
[2020-11-05] MEDS ORDERED: ONDANSETRON 4 MG/2 ML VIAL ONE (08:32)
[2020-11-05] MEDS ORDERED: NA CHLORIDE 0.9% 1,000 ML ONE (08:32)
[2020-11-05 08:41] LABS: Albumin 3.7 g/dL (3.4-5.0); Bilirubin Direct 0.3 mg/dL (0-0.2); Bilirubin Total 1.6 mg/dL (0.2-1.0); Magnesium 2.3 mg/dL (1.8-2.4); Potassium 3.7 mmol/L (3.5-5.1); Protein, Total 7.5 g/dL (6.4-8.2); Troponin (Emerg Dept Use Only) 0.08 ng/mL (0.0-0.045)
[2020-11-05] MEDS ORDERED: MORPHINE 4 MG/ML SYR ONE (08:52)
--- NOTE | 2020-11-05 09:03 | RAD REPORT ---
EXAM DESCRIPTION: CT - Abdomen Pelvis Wo Contrast - 11/05/2020 8:42 am CLINICAL HISTORY: Abdominal pain COMPARISON: 2019 TECHNIQUE: Computed axial tomography of the abdomen and pelvis was obtained. IV and oral contrast we re not requested. All CT scans are performed using dose optimization technique as appropriate and may include automated exposure control or mA/KV adjustment according to patient size. FINDINGS: The evaluation of solid organs, vessels and bowel is limited secondary to the lack of con trast administration. Cholelithiasis. The wall of portion of the gallbladder fundus may be thickened. The liver, spleen, pancreas, adrenals and kidneys appear grossly normal. The appendix is normal. There is no evidence of diverticulitis. Slight anterior subluxation L4 on L5. Spondylosis L5-S1 Thickening of the wall of the distal esophagus. Mild dilatation of the esophagus IMPRESSION: Cholelithiasis. The wall of a portion of the gallbladder fundus may be thickened. Thickening of the wall of the distal esophagus may indicate esophagitis
--- NOTE | 2020-11-05 09:03 | RAD REPORT ---
EXAM DESCRIPTION: Cinthia Single View11/05/2020 8:27 am CLINICAL HISTORY: Cough COMPARISON: August 2020 FINDINGS: The lungs appear clear of acute infiltrate. The heart is normal size IMPRESSION: No acute abnormalities displayed
--- NOTE | 2020-11-05 09:11 | ER ---
Nurse's Notes [facility] Name: Noé Yang Jr Age: 60 yrs Sex: Male : 1960 Arrival Date: 11/05/2020 Time: 07:23 Bed 4 Private MD: Omega Horan Diagnosis: Vomiting;Essential (primary) hypertension;Type 1 diabetes mellitus;Abdominal tenderness;Cholelithiasis;Non-ST elevation (NSTEMI) myocardial infarction Presentation: 11/05 07:29 Chief complaint: Patient states: nausea/vomiting/diarrhea since . Pt states "I aa5 can't keep anything down anymore". 07:29 Coronavirus screen: diarrhea, nausea, vomiting. Ebola Screen: Patient negative for aa5 fever greater than or equal to 101.5 degrees Fahrenheit, and additional compatible Ebola Virus Disease symptoms. Initial Sepsis Screen: Does the patient meet any 2 criteria? HR > 90 bpm. Does the patient have a suspected source of infection? Yes:. Risk Assessment: Do you want to hurt yourself or someone else? Patient reports no desire to harm self or others. Onset of symptoms was October 2020. 07:29 Method Of Arrival: Ambulatory aa5 07:29 Acuity: ALVARO 2 aa5 Historical: - Allergies: 07:37 Actos; aa5 07:37 metformin; aa5 07:37 victoza; aa5 - PMHx: 07:37 Diabetes - IDDM; Hepatitis; Hypertension; aa5 - PSHx: 07:37 R BKA; aa5 - Immunization history:: Adult Immunizations unknown. - Social history:: Smoking status: Patient denies any tobacco usage or history of. Screenin:30 Abuse screen: Denies threats or abuse. Denies injuries from another. Nutritional bp screening: No deficits noted. Tuberculosis screening: No symptoms or risk factors identified. Fall Risk None identified. Assessment: 08:00 General: Appears in no apparent distress. Behavior is calm, cooperative, appropriate tr6 for age. Pain: Complains of pain in pt c/o diffuse abdominal pain. Neuro: No deficits noted. Cardiovascular: No deficits noted. Respiratory: No deficits noted. GI: Abdomen is flat, Bowel sounds present X 4 quads. Abd is non tender Reports lower abdominal pain, upper abdominal pain. : No deficits noted. EENT: No deficits noted. Derm: No deficits noted. Musculoskeletal: Amputation of right leg. 08:19 Reassessment: bedside ctx. tr6 08:36 Reassessment: pt transported to CT. tr6 10:00 Reassessment: HOSPITALIST AT B/S. ADMIT IN PROCESS. bp Vital Signs: 07:29 BP 189 / 121; Pulse 114; Resp 20 S; Temp 98.2(O); Pulse Ox 96% on R/A; Weight 68.04 kg; bp 09:08 BP 158 / 95; Resp 18; Pulse Ox 100% on R/A; tr6 10:00 BP 141 / 95; Pulse 69; Resp 17; Pulse Ox 95% ; bp ED Course: 07:23 Patient arrived in ED. as 07:24 Omega Horan DO is Private Physician. as 07:29 Arm band placed on Patient placed in an exam room, on a stretcher. aa5 07:30 Patient has correct armband on for positive identification. Bed in low position. Call bp light in reach. Side rails up X2. 07:33 Jake rFausto MD is Attending Physician. liane 07:37 Triage completed. aa5 07:48 Darlene Madrigal RN is Primary Nurse. tr6 08:15 Inserted saline lock: 22 gauge in left forearm, using aseptic technique. bp 08:27 XRAY Chest (1 view) In Process Unspecified. EDMS 08:42 CT Abd/Pelvis - Without Contrast In Process Unspecified. EDMS 09:08 Konrad Jeffries DO is Hospitalizing Provider. liane 14:57 No provider procedures requiring assistance completed. Patient admitted, IV remains in aa5 place. Administered Medications: 08:18 Drug: Zofran (Ondansetron) 4 mg Route: IVP; Site: left forearm; tr6 11:05 Follow up: Response: No adverse reaction; Nausea is decreased tr6 08:19 Drug: NS 0.9% 500 ml Route: IV; Rate: bolus; Site: left forearm; tr6 08:36 Drug: morphine 4 mg Route: IVP; Site: left forearm; tr6 11:04 Follow up: Response: No adverse reaction; Pain is decreased tr6 09:15 Drug: Pepcid (famotidine) 20 mg Route: IVP; Site: left forearm; tr6 11:05 Follow up: Response: No adverse reaction; Pain is decreased tr6 09:18 Drug: NS 0.9% 1000 ml Route: IV; Rate: 125 ml/hr; Site: left forearm; tr6 09:32 Drug: Zosyn (piperacillin-tazobactam) 3.375 grams Route: IVPB; Infused Over: 60 mins; tr6 Site: left forearm; 09:33 Drug: Aspirin Suppository 300 mg Route: OK; tr6 11:05 Follow up: Response: No adverse reaction tr6 09:33 Drug: Lopressor (metoprolol TARTRATE) 50 mg Route: PO; tr6 11:05 Follow up: Response: No adverse reaction; Blood pressure is elevated tr6 09:33 Drug: hydrALAZINE 10 mg Route: IV; Rate: per protocol; Site: left forearm; tr6 11:02 Drug: Insulin Regular Human 6 units {Co-Signature: bp (Ezra Tilley RN).} Route: tr6 Sub-Q; Site: abdomen; 11:03 Drug: Insulin Regular Human 6 units {Co-Signature: bp (Ezra Tilley RN).} Route: IVP; tr6 Site: left forearm; 11:04 Drug: Lovenox (enoxaparin) 1 mg/kg Route: Sub-Q; Site: abdomen; tr6 11:04 Follow up: Response: No adverse reaction tr6 Outcome: 09:10 Decision to Hospitalize by Provider. [facility] 14:58 Admitted to Med/surg accompanied by nurse, via wheelchair, with chart, Report called to conrad Perry RN 14:58 Condition: stable 14:58 Instructed on the need for admit, Demonstrated understanding of instructions. 14:58 Patient left the ED. aa5 Signatures: Dispatcher [employer] EDWY Jake Frausto MD MD cha Martinez, Amelia as Calderon, Audri, RN RN aa5 Ezra Tilley RN RN Darlene Boyer RN RN tr6 Ezra Tilley RN bp Corrections: (The following items were deleted from the chart) 10:50 07:29 BP 189 / 121; Pulse 114bpm; Resp 20bpm; Spontaneous; Pulse Ox 96% RA; Temp 98.2F bp Oral; aa5
--- NOTE | 2020-11-05 09:11 | EDPHYS ---
[facility] Name: Noé Yang Jr Age: 60 yrs Sex: Male : 1960 Arrival Date: 11/05/2020 Time: 07:23 Bed 4 Private MD: Aung [facility] ED Physician Jake Frausto HPI: 11/05 08:21 This 60 yrs old Male presents to ER via Ambulatory with complaints of liane Nausea/Vomiting. 08:21 The patient presents to the emergency department with nausea, vomiting, abdominal pain. liane Onset: The symptoms/episode began/occurred 2 day(s) ago. Possible causes: unknown. The symptoms are aggravated by nothing. The symptoms are alleviated by nothing. Associated signs and symptoms: Pertinent positives: abdominal pain. Severity of symptoms: At their worst the symptoms were moderate in the emergency department the symptoms are unchanged. The patient has not experienced similar symptoms in the past. Historical: - Allergies: 07:37 Actos; aa5 07:37 metformin; aa5 07:37 victoza; aa5 - PMHx: 07:37 Diabetes - IDDM; Hepatitis; Hypertension; aa5 - PSHx: 07:37 R BKA; aa5 - Immunization history:: Adult Immunizations unknown. - Social history:: Smoking status: Patient denies any tobacco usage or history of. ROS: 08:22 Constitutional: Negative for fever, chills, and weight loss, Eyes: Negative for injury, liane pain, redness, and discharge, ENT: Negative for injury, pain, and discharge, Neck: Negative for injury, pain, and swelling, Cardiovascular: Negative for chest pain, palpitations, and edema, Respiratory: Negative for shortness of breath, cough, wheezing, and pleuritic chest pain, Back: Negative for injury and pain, : Negative for injury, bleeding, discharge, and swelling, MS/Extremity: Negative for injury and deformity, Skin: Negative for injury, rash, and discoloration, Neuro: Negative for headache, weakness, numbness, tingling, and seizure, Psych: Negative for depression, anxiety, suicide ideation, homicidal ideation, and hallucinations, Allergy/Immunology: Negative for hives, rash, and allergies, Endocrine: Negative for neck swelling, polydipsia, polyuria, polyphagia, and marked weight changes, Hematologic/Lymphatic: Negative for swollen nodes, abnormal bleeding, and unusual bruising. 08:22 Abdomen/GI: Positive for nausea and vomiting. Exam: 08:22 Constitutional: This is a well developed, well nourished patient who is awake, alert, liane and in no acute distress. Head/Face: Normocephalic, atraumatic. Eyes: Pupils equal round and reactive to light, extra-ocular motions intact. Lids and lashes normal. Conjunctiva and sclera are non-icteric and not injected. Cornea within normal limits. Periorbital areas with no swelling, redness, or edema. ENT: Nares patent. No nasal discharge, no septal abnormalities noted. Tympanic membranes are normal and external auditory canals are clear. Oropharynx with no redness, swelling, or masses, exudates, or evidence of obstruction, uvula midline. Mucous membranes moist. Neck: Trachea midline, no thyromegaly or masses palpated, and no cervical lymphadenopathy. Supple, full range of motion without nuchal rigidity, or vertebral point tenderness. No Meningismus. Chest/axilla: Normal chest wall appearance and motion. Nontender with no deformity. No lesions are appreciated. Respiratory: Lungs have equal breath sounds bilaterally, clear to auscultation and percussion. No rales, rhonchi or wheezes noted. No increased work of breathing, no retractions or nasal flaring. Back: No spinal tenderness. No costovertebral tenderness. Full range of motion. Male : Normal genitalia with no discharge or lesions. Skin: Warm, dry with normal turgor. Normal color with no rashes, no lesions, and no evidence of cellulitis. MS/ Extremity: Pulses equal, no cyanosis. Neurovascular intact. Full, normal range of motion. Neuro: Awake and alert, GCS 15, oriented to person, place, time, and situation. Cranial nerves II-XII grossly intact. Motor strength 5/5 in all extremities. Sensory grossly intact. Cerebellar exam normal. Normal gait. Psych: Awake, alert, with orientation to person, place and time. Behavior, mood, and affect are within normal limits. 08:22 Cardiovascular: Rate: tachycardic, Rhythm: regular, Pulses: Pulses are 4+ in bilateral radial, brachial, femoral, popliteal, posterior tibial and and dorsalis pedis arteries.. Heart sounds: normal, Edema: JVD: is not appreciated. 08:22 ECG was reviewed by the Attending Physician. Vital Signs: 07:29 BP 189 / 121; Pulse 114; Resp 20 S; Temp 98.2(O); Pulse Ox 96% on R/A; Weight 68.04 kg; bp 09:08 BP 158 / 95; Resp 18; Pulse Ox 100% on R/A; tr6 10:00 BP 141 / 95; Pulse 69; Resp 17; Pulse Ox 95% ; bp MDM: 07:34 Patient medically screened. liane 08:25 Differential diagnosis: Nonspecific abd pain, gastritis, cholecystitis, pancreatitis, liane viral gastroenteritis, gastroenteritis. Data reviewed: vital signs, nurses notes, lab test result(s), EKG, radiologic studies, CT scan, plain films. Data interpreted: monitoring manager: rate is 114 beats/min, rhythm is regular, Pulse oximetry: on room air is 96 %. Test interpretation: by ED physician or midlevel provider: ECG, plain radiologic studies. Counseling: I had a detailed discussion with the patient and/or guardian regarding: the historical points, exam findings, and any diagnostic results supporting the discharge/admit diagnosis, lab results, radiology results. 11/05 07:37 Order name: Basic Metabolic Panel [facility] 11/05 07:37 Order name: CBC with Diff [facility] 11/05 07:37 Order name: LFT's; Complete Time: 08:59 [facility] 11/05 07:37 Order name: Magnesium; Complete Time: 08:59 [facility] 11/05 07:37 Order name: NT PRO-BNP; Complete Time: 08:59 [facility] 11/05 07:37 Order name: PT-INR; Complete Time: 08:59 [facility] 11/05 07:37 Order name: Troponin (emerg Dept Use Only); Complete Time: 08:59 [facility] 11/05 07:37 Order name: Lipase; Complete Time: 08:59 [facility] 11/05 07:37 Order name: Basic Metabolic Panel; Complete Time: 08:59 ED[facility] 11/05 07:37 Order name: CBC with Automated Diff [facility] 11/05 10:24 Order name: CBC Smear Scan [facility] 11/05 12:37 Order name: COVID-19 : Document "Date of Symptom Onset" if Symptomatic. aa5 11/05 13:20 Order name: CORONAVIRUS [facility] 11/05 14:03 Order name: SARS-COV-2 RT PCR [facility] 11/05 07:37 Order name: XRAY Chest (1 view); Complete Time: 09:05 [facility] 11/05 07:37 Order name: EKG; Complete Time: 07:38 [facility] 11/05 07:37 Order name: Cardiac monitoring; Complete Time: 08:08 [facility] 11/05 08:20 Order name: CT Abd/Pelvis - Without Contrast; Complete Time: 09:05 [facility] 11/05 07:37 Order name: EKG - Nurse/Tech; Complete Time: 08:08 [facility] 11/05 07:37 Order name: IV Saline Lock; Complete Time: 08:18 [facility] 11/05 07:37 Order name: Labs collected and sent; Complete Time: 08:08 [facility] 11/05 07:37 Order name: O2 Per Protocol; Complete Time: 08:08 [facility] 11/05 07:37 Order name: O2 Sat Monitoring; Complete Time: 08:08 [facility] EC:22 Rate is 105 beats/min. Rhythm is regular. QRS [place] is Normal. CA interval is normal. [facility] QRS interval is normal. QT interval is normal. No Q waves. T waves are Normal. No ST changes noted. Clinical impression: NSR w/ Non-specific ST/T Changes and Sinus tachycardia. Interpreted by me. Reviewed by me. Administered Medications: 08:18 Drug: Zofran (Ondansetron) 4 mg Route: IVP; Site: left forearm; tr6 11:05 Follow up: Response: No adverse reaction; Nausea is decreased tr6 08:19 Drug: NS 0.9% 500 ml Route: IV; Rate: bolus; Site: left forearm; tr6 08:36 Drug: morphine 4 mg Route: IVP; Site: left forearm; tr6 11:04 Follow up: Response: No adverse reaction; Pain is decreased tr6 09:15 Drug: Pepcid (famotidine) 20 mg Route: IVP; Site: left forearm; tr6 11:05 Follow up: Response: No adverse reaction; Pain is decreased tr6 09:18 Drug: NS 0.9% 1000 ml Route: IV; Rate: 125 ml/hr; Site: left forearm; tr6 09:32 Drug: Zosyn (piperacillin-tazobactam) 3.375 grams Route: IVPB; Infused Over: 60 mins; tr6 Site: left forearm; 09:33 Drug: Aspirin Suppository 300 mg Route: CA; tr6 11:05 Follow up: Response: No adverse reaction tr6 09:33 Drug: Lopressor (metoprolol TARTRATE) 50 mg Route: PO; tr6 11:05 Follow up: Response: No adverse reaction; Blood pressure is elevated tr6 09:33 Drug: hydrALAZINE 10 mg Route: IV; Rate: per protocol; Site: left forearm; tr6 11:02 Drug: Insulin Regular Human 6 units {Co-Signature: bp (Ezra Tilley RN).} Route: tr6 Sub-Q; Site: abdomen; 11:03 Drug: Insulin Regular Human 6 units {Co-Signature: bp (Ezra Tilley RN).} Route: IVP; tr6 Site: left forearm; 11:04 Drug: Lovenox (enoxaparin) 1 mg/kg Route: Sub-Q; Site: abdomen; tr6 11:04 Follow up: Response: No adverse reaction tr6 Disposition: 11/05/20 09:10 Hospitalization ordered by Konrad Jeffries for Inpatient Admission. Preliminary diagnosis are Vomiting, Essential (primary) hypertension, Type 1 diabetes mellitus, Abdominal tenderness, Cholelithiasis, Non-ST elevation (NSTEMI) myocardial infarction. - Bed requested for Telemetry/MedSurg (Inpatient). - Status is Inpatient Admission. aa5 - Condition is Fair. - Problem is new. - Symptoms have improved. Signatures: Dispatcher [employer] EDMS Jake Frausto MD MD cha Calderon, Audri, RN RN aa5 Rodrigo Dover RN RN ja1 Ezra Tilley RN RN bp Darlene Madrigal RN RN tr6 Ezra Tilley RN bp Corrections: (The following items were deleted from the chart) 14:17 09:10 Hospitalization Ordered by Konrad Jeffries DO for Inpatient Admission. Preliminary ja1 diagnosis is Vomiting; Essential (primary) hypertension; Type 1 diabetes mellitus; Abdominal tenderness; Cholelithiasis; Non-ST elevation (NSTEMI) myocardial infarction. Bed requested for Telemetry/MedSurg (Inpatient). Status is Inpatient Admission. Condition is Fair. Problem is new. Symptoms have improved. [facility] 14:58 14:17 11/05/2020 09:10 Hospitalization Ordered by Konrad Prezas DO for Inpatient aa5 Admission. Preliminary diagnosis is Vomiting; Essential (primary) hypertension; Type 1 diabetes mellitus; Abdominal tenderness; Cholelithiasis; Non-ST elevation (NSTEMI) myocardial infarction. Bed requested for Telemetry/MedSurg (Inpatient). Status is Inpatient Admission. Condition is Fair. Problem is new. Symptoms have improved. ja1
[2020-11-05] MEDS ORDERED: FAMOTIDINE 20 MG/2 ML VIAL IV ONE (09:25)
[2020-11-05] MEDS ORDERED: METOPROLOL TAR 50 MG TAB ONE (09:40)
[2020-11-05] MEDS ORDERED: PIPER/TAZO/NS 3.375gm 3.375 GM/100 ML BAG ONE (09:40)
[2020-11-05] MEDS ORDERED: HYDRALAZINE HCL 20 MG/ML VIAL ONE (09:40)
[2020-11-05] MEDS ORDERED: ASPIRIN 600 MG/SUPP PR ONE (09:40)
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
[2020-11-05 10:24] LABS: Blood Morphology Comment NOT SEEN (NOT SEEN); Platelet Estimate ADEQ; White Blood Cell Scan OK (OK)
[2020-11-05] MEDS ORDERED: INSULIN -REGULAR HUMAN 50 UNIT/0.5 ML ML ONE (11:18)
[2020-11-05] MEDS ORDERED: ENOXAPARIN 60 MG/0.6 ML SQ ONE (11:18)
[2020-11-05 12:39] VITALS: BMI 23.3
[2020-11-05] MEDS ORDERED: GLUCAGON 1 MG/VIAL IM PRN (13:36)
[2020-11-05] MEDS ORDERED: INSULIN -REGULAR HUMAN 50 UNIT/0.5 ML ML SQ SCH (13:36)
[2020-11-05] MEDS ORDERED: ACETAMINOPHEN 500 MG TAB PO PRN (13:36)
[2020-11-05] MEDS ORDERED: D50W 25 GM/50 ML SYRINGE IV PRN (13:36)
[2020-11-05] MEDS: NA CHLORIDE 0.9% 1,000 ML IV SCH ×2 (13:36→15:26)
[2020-11-05] MEDS ORDERED: SODIUM CHLORIDE 0.9% 10ML INJ IV PRN (13:36)
[2020-11-05] MEDS: INSULIN -REGULAR HUMAN 50 UNIT/0.5 ML ML SQ SCH ×3 (13:36→21:10)
[2020-11-05] MEDS: PANTOPRAZOLE 40 MG INJ IVP SCH ×2 (15:28→21:09)
[2020-11-05] MEDS: ONDANSETRON 4 MG/2 ML VIAL IV PRN (15:35)
[2020-11-05] MEDS ORDERED: POTASSIUM 25 MEQ EFFERV TAB PO ONE (15:49)
[2020-11-05] MEDS ORDERED: TRAMADOL HCL 50 MG TAB PO PRN (15:55)
[2020-11-05 16:17] LABS: Urine Appearance CLEAR (Clear); Urine Bilirubin NEGATIVE (Negative); Urine Blood 2+ (Negative); Urine Color YELLOW (Yellow); Urine Glucose 2+ (Negative); Urine Protein 3+ (Negative); Urine Specific Gravity 1.025 (1.005-1.030); Urine pH 6.5 (5.0-7.0)
[2020-11-05 16:46] LABS: Urine Microscopic Reflex ORDER UMIC
[2020-11-05 16:49] LABS: Urine Bacteria <20 /HPF (NONE SEEN)
[2020-11-05 16:50] LABS: Urine Amorphous Sediment 1+ /HPF (NONE SEEN); Urine Mucus 3+ /HPF (NONE SEEN)
[2020-11-05 16:52] LABS: Hematocrit 41.7 % (39.6-49.0)
[2020-11-05 17:11] LABS: CKMB Creatine Kinase MB 9.2 ng/mL (0.3-3.6); Troponin I 0.08 ng/mL (0.0-0.045)
[2020-11-05] MEDS: METOPROLOL TAR 25 MG TAB PO SCH (17:29)
[2020-11-05] MEDS: HEPARIN 5000 UNIT/ML 1 ML VIAL SQ SCH (21:10)
[2020-11-05] MEDS: HYDROCODONE/APAP 7.5/325 MG TAB PO PRN (21:10)
[2020-11-06] MEDS ORDERED: MORPHINE 2 MG/ML SYR IV ONE (00:14)
[2020-11-06] MEDS: NA CHLORIDE 0.9% 1,000 ML IV SCH ×3 (00:31→20:57)
[2020-11-06] MEDS: ONDANSETRON 4 MG/2 ML VIAL IV PRN (00:31)
[2020-11-06 01:48] LABS: CKMB Creatine Kinase MB 6.6 ng/mL (0.3-3.6); Troponin I 0.06 ng/mL (0.0-0.045)
[2020-11-06] MEDS: METOPROLOL TAR 25 MG TAB PO SCH (05:10)
[2020-11-06 06:21] LABS: Absolute Lymphocytes (CBC) 1.4 K/uL (0.7-4.9); Basophils % 0.3 % (0-1.3); Hematocrit 40.1 % (39.6-49.0); Lymphocytes % 16.8 % (15.3-44.8); MPV 9.3 fL (7.6-11.3); RBC Red Blood Cell Count 4.19 M/uL (4.33-5.43)
[2020-11-06 06:38] LABS: Magnesium 2.4 mg/dL (1.8-2.4); Potassium 3.6 mmol/L (3.5-5.1)
[2020-11-06] MEDS ORDERED: KCL 20 MEQ/100 mL IVPB 20 MEQ/100 ML BAG IV SCH (08:00)
--- NOTE | 2020-11-06 08:10 | P.PN ---
Subjective Date of Service: 11/06/20 Primary Care Provider: Dr. Horan Chief Complaint: Nausea, vomiting and abdominal pain Subjective: Improving, Doing well (Patient tolerating clear liquid with some mild nausea) Physical Examination - Vital Signs Temperature: 98 F Blood Pressure: 186/100 Pulse: 77 Respirations: 18 Pulse Ox (%): 97 - Studies Laboratory Data (last 24 hrs) 11/05/20 08:03: PT 11.8, INR 1.03 11/05/20 08:03: WBC 15.00 H, Hgb 14.7, Hct 43.6, Plt Count 201 11/05/20 08:03: Sodium 133 L, Potassium 3.7, BUN 48 H, Creatinine 1.57 H, Glucose 334 H, Magnesium 2.3, Total Bilirubin 1.6 H, AST 64 H, ALT 48, Alkaline Phosphatase 110, Lipase 150 Assessment & Plan Discharge Plan: Home Plan to discharge in: 24 Hours Physician Review Additional Text: Physical Exam: GENERAL: [The patient is a well-developed, well-nourished, in no apparent distress. Alert and oriented x3.] VITAL SIGNS: [Reviewed] HEENT: [Head is normocephalic and atraumatic. Extraocular muscles are intact. Pupils are equal, round, and reactive to light and accommodation. Nares appeared normal. Mouth is well hydrated and without lesions. Mucous membranes are moist. ] NECK: [Supple. No carotid bruits. No lymphadenopathy or thyromegaly.] LUNGS: [Clear to auscultation. No crackles or wheezes are heard.] HEART: [Regular rate and rythem, no appreciable gallops, rubs, murmurs or extra heart sounds] ABDOMEN: No significant abdominal pain noted. Patient tolerating clear liquids. Bowel sounds within normal range. EXTREMITIES: [Without any cyanosis, clubbing, rash, lesions or peripheral edema.] NEUROLOGIC: [The patient is oriented to person, place and time. Strength and sensation are grossly intact. Face is symmetric.] SKIN: [Normal color, turgor and temperature. No ulcerations or rashes noted.] Impression: Nausea, vomiting with epigastric abdominal pain secondary to esophagitis Acute renal insufficiency likely dehydration Elevated troponin likely ischemia demand with uncontrolled hypertension Diabetes mellitus type 2 with hyperglycemia Plan: Nausea, vomiting with epigastric abdominal pain secondary to esophagitis: Patient tolerating clear liquids. Will try GI soft diet. Anticipate patient to tolerate diet if so we will consider discharge. For now continue IV Protonix. Encourage ambulation. Encourage incentive spirometer. If patient tolerates diet will need to send home with Protonix 40 mg 1 pill twice daily. Patient will need close follow-up with GI for EGD in the near future. Patient should also follow-up with his PCP within 1 week. Acute renal insufficiency likely dehydration: This has improved with IV fluids. Encourage oral hydration. Elevated troponin likely ischemia demand with uncontrolled hypertension: Blood pressure still slightly elevated. Continue lisinopril. Also continue with hydralazine but will increase to 3 times a day. Metoprolol also added for better blood pressure control. Patient was hospitalized in August 2020 for chest pain. Case discussed with cardiology. Patient was to follow-up for outpatient cardiac stress test. He is not been able to do this. No intervention needed at this time. Recommend to continue blood pressure medications at home. Recommend follow-up with cardiology as an outpatient for cardiac stress test. Diabetes mellitus type 2 with hyperglycemia: Patient uses NPH at home. Accu- Cheks in place. Will check A1c. Insulin siding scale will be ordered. Will monitor closely. Code Status: [Full Code] DVT prophylaxis: [Lovenox] Advanced Care Planning-30 minutes: Plan of care for the patient's discharge was discussed in detail with the patient. Patient plans to go home at discharge. Time Spent Managing Pts Care (In Minutes): 55
--- NOTE | 2020-11-06 08:16 | P.DS ---
Admission Date: 11/05/20 Discharge Date: 11/06/20 Primary Care Provider: Dr. Horan Disposition: ROUTINE DISCHARGE Discharge Condition: GOOD Reason for Admission: Nausea, vomiting and abdominal pain Consultations: GI-Dr. Perez Procedures: COVID: Negative CT scan: COMPARISON: 2019 TECHNIQUE: Computed axial tomography of the abdomen and pelvis was obtained. IV and oral contrast were not requested. All CT scans are performed using dose optimization technique as appropriate and may include automated exposure control or mA/KV adjustment according to patient size. FINDINGS: The evaluation of solid organs, vessels and bowel is limited secondary to the lack of contrast administration. Cholelithiasis. The wall of portion of the gallbladder fundus may be thickened. The liver, spleen, pancreas, adrenals and kidneys appear grossly normal. The appendix is normal. There is no evidence of diverticulitis. Slight anterior subluxation L4 on L5. Spondylosis L5-S1 Thickening of the wall of the distal esophagus. Mild dilatation of the esophagus IMPRESSION: Cholelithiasis. The wall of a portion of the gallbladder fundus may be thickened. Thickening of the wall of the distal esophagus may indicate esophagitis CXR: COMPARISON: August 2020 FINDINGS: The lungs appear clear of acute infiltrate. The heart is normal size IMPRESSION: No acute abnormalities displayed Medical Problem List: Nausea, vomiting with epigastric abdominal pain secondary to esophagitis Acute renal insufficiency secondary to dehydration Elevated troponin likely ischemic demand with uncontrolled hypertension Diabetes mellitus type 2 with hyperglycemia insulin-dependent CT showing cholelithiasis without cholecystitis Brief History of Present Illness: 60-year-old male with history of diabetes mellitus type 2 insulin dependent, hypertension, GERD. Patient reported increased nausea, vomiting and epigastric abdominal pain since yesterday. He reports eating some chicken strips and mangoes. After that episode of eating he reported increased pain. It is persisted. He reported some black stool this morning. Patient with history of GERD. He has been without medication for quite some time. Patient was actually seen in August of 2020 with similar problems. He was told to follow up with cardiology for outpatient cardiac stress test. Troponin 0.08 at this time. Patient reports no chest pain, shortness of breath, headaches her dizziness. Blood pressure elevated. In the ER. Troponin 0.08. No significant EKG changes noted. White count 15, hemoglobin 14.7 with a platelet count of 201. Sodium 133, potassium 3.7. BUN of 48, creatinine 1.58 with a GFR 46. Glucose 334. Chest x-ray unremarkable. CT scan showed esophagitis with gallstones. Patient admitted for further evaluation and treatment. Hospital Course: Patient presented with nausea, vomiting and epigastric abdominal pain. This was secondary to esophagitis noted on CT scan. Patient with history of alcohol ab use in the past. He is not drank any alcohol in over 2 years. He had been taking medication for GERD. Patient was admitted to further evaluate and treat. Patient also with acute renal insufficiency likely from dehydration. Patient has done well. Patient able to tolerate his diet. GI was consulted. Hemoglobin remained stable. Renal function improved. At discharge patient without significant nausea, vomiting or epigastric abdominal pain. H. pylori antigen obtained prior to discharge. At discharge the patient will continue with Protonix 40 mg 1 pill twice daily. Recommend follow-up with GI in 1 to 2 weeks to follow his hospitalization. Patient would benefit with EGD in the near future to further evaluate. Recommend follow-up with his PCP within 1 week to follow his hospitalization. PCP will need to follow-up on H. pylori antigen. If positive patient will require treatment. Education on esophagitis, H. pylori will be provided. Patient also has hypertension. This was uncontrolled. Patient had mild elevation in troponin. Patient recently hospitalized in August 2020 for chest pain. He was to follow-up with cardiology as an outpatient for cardiac stress test. Patient has not been able to do this. Spoke with cardiology at this time. No intervention needed at this time. Medications have been adjusted. At discharge patient will continue with lisinopril 20 mg daily, hydralazine 25 mg 1 pill 3 times a day, and metoprolol 50 mg 1 pill twice daily. Recommend to maintain blood pressure less than 130/80. If blood pressures remain above 140/90 he is to contact his PCP to further monitor and adjust medication. Recommend follow-up with cardiology in 2 to 4 weeks to follow-up hospitalization and set up outpatient cardiac stress test to further evaluate due to his risk factors. Patient with diabetes mellitus type 2. Patient insulin-dependent. Hyperglycemia noted. Prior A1c was elevated. A1c obtained during the hospitalization. This is pending at discharge. Recommend to maintain blood sugars less than 140 fasting and less than 200 for meals. Patient may continue with his insulin NPH. If blood sugars remain above 200 consistently he may increase his NPH by 1 to 2 units for better control. Recommend follow-up with his PCP to further address and monitor. Recommend to recheck hemoglobin A1c in 3 months to monitor his progress. Education on diabetes will be provided. Vital Signs/Physical Exam: Temp Pulse Resp BP Pulse Ox 98 F 77 18 186/100 H 97 11/06/20 08:10 11/06/20 08:10 11/06/20 08:10 11/06/20 08:10 11/06/20 08:10 General: Alert, In no apparent distress, Oriented x3, Cooperative HEENT: Atraumatic Neck: Supple Respiratory: Clear to auscultation bilaterally, Normal air movement Cardiovascular: Normal pulses, Regular rate/rhythm Gastrointestinal: Normal bowel sounds, No tenderness, No masses, No rebound, No guarding Musculoskeletal: No erythema, No tenderness, No warmth Integumentary: No tenderness/swelling Neurological: Normal speech, Normal strength at 5/5 x4 extr, Normal tone, Normal affect Laboratory Data at Discharge: WBC 8.10 K/uL (4.3-10.9) D 11/06/20 05:41 Hgb 13.8 g/dL (13.6-17.9) 11/06/20 05:41 Hct 40.1 % (39.6-49.0) 11/06/20 05:41 Plt Count 183 K/uL (152-406) 11/06/20 05:41 PT 11.8 SECONDS (9.5-12.5) 11/05/20 08:03 INR 1.03 11/05/20 08:03 Sodium 138 mmol/L (136-145) 11/06/20 05:41 Potassium 3.6 mmol/L (3.5-5.1) 11/06/20 05:41 BUN 36 mg/dL (7-18) H 11/06/20 05:41 Creatinine 1.17 mg/dL (0.55-1.3) 11/06/20 05:41 Glucose 197 mg/dL (74-106) H 11/06/20 05:41 Magnesium 2.4 mg/dL (1.8-2.4) 11/06/20 05:41 Total Bilirubin 1.6 mg/dL (0.2-1.0) H 11/05/20 08:03 AST 64 U/L (15-37) H 11/05/20 08:03 ALT 48 U/L (12-78) 11/05/20 08:03 Alkaline Phosphatase 110 U/L (45-117) 11/05/20 08:03 Troponin I 0.06 ng/mL (0.0-0.045) H 11/06/20 00:59 Triglycerides 136 mg/dL (<150) 11/06/20 05:41 Cholesterol 154 mg/dL (<200) 11/06/20 05:41 HDL Cholesterol 54 mg/dL (40-60) 11/06/20 05:41 Cholesterol/HDL Ratio 2.85 11/06/20 05:41 Lipase 150 U/L (73-393) 11/05/20 08:03 Home Medications: Insulin NPH Human [Novolin N (Humulin N)*] See Protocol SQ [facility] 12/08/15 Multivit-Mins/Iron/Folic/Lycop [Centrum Ultra Men's Tablet] 1 tab PO DAILY 08/17/16 Aspirin [Lo-Dose Aspirin EC] 1 tab PO DAILY 09/17/20 lisinopriL [Prinivil*] 20 mg PO DAILY 09/17/20 Hydralazine [Apresoline*] 25 mg PO TID #90 tab 11/06/20 Metoprolol Tartrate [Lopressor*] 50 mg PO BID 6AM 6PM #60 tab 11/06/20 Pantoprazole [Protonix Tab] 40 mg PO BID #60 tab 11/06/20 New Medications: Hydralazine [Apresoline*] 25 mg PO TID #90 tab Metoprolol Tartrate [Lopressor*] 50 mg PO BID 6AM 6PM #60 tab Pantoprazole [Protonix Tab] 40 mg PO BID #60 tab Physician Discharge Instructions: Patient presented with nausea, vomiting and epigastric abdominal pain. This was secondary to esophagitis noted on CT scan. Patient with history of alcohol abuse in the past. He is not drank any alcohol in over 2 years. He had been taking medication for GERD. Patient was admitted to further evaluate and treat. Patient also with acute renal insufficiency likely from dehydration. Patient has done well. Patient able to tolerate his diet. GI was consulted. Hemoglobin remained stable. Renal function improved. At discharge patient without significant nausea, vomiting or epigastric abdominal pain. H. pylori antigen obtained prior to discharge. At discharge the patient will continue with Protonix 40 mg 1 pill twice daily. Recommend follow-up with GI in 1 to 2 weeks to follow his hospitalization. Patient would benefit with EGD in the near future to further evaluate. Recommend follow-up with his PCP within 1 week to follow his hospitalization. PCP will need to follow-up on H. pylori antigen. If positive patient will require treatment. Education on esophagitis, H. pylori will be provided. Patient also has hypertension. This was uncontrolled. Patient had mild elevation in troponin. Patient recently hospitalized in August 2020 for chest pain. He was to follow-up with cardiology as an outpatient for cardiac stress test. Patient has not been able to do this. Spoke with cardiology at this time. No intervention needed at this time. Medications have been adjusted. At discharge patient will continue with lisinopril 20 mg daily, hydralazine 25 mg 1 pill 3 times a day, and metoprolol 50 mg 1 pill twice daily. Recommend to maintain blood pressure less than 130/80. If blood pressures remain above 140/90 he is to contact his PCP to further monitor and adjust medication. Recommend follow-up with cardiology in 2 to 4 weeks to follow-up hospitalization and set up outpatient cardiac stress test to further evaluate due to his risk factors. Patient with diabetes mellitus type 2. Patient insulin-dependent. Hyperglycemia noted. Prior A1c was elevated. A1c obtained during the hospitalization. This is pending at discharge. Recommend to maintain blood sugars less than 140 fasting and less than 200 for meals. Patient may continue with his insulin NPH. If blood sugars remain above 200 consistently he may increase his NPH by 1 to 2 units for better control. Recommend follow-up with his PCP to further address and monitor. Recommend to recheck hemoglobin A1c in 3 months to monitor his progress. Education on diabetes will be provided. Diet: ADA Activity: Ad nadine Followup: Omega Horan DO [Primary Care Provider] - Time spent managing pt's care (in minutes): 55
[2020-11-06] MEDS: INSULIN -REGULAR HUMAN 50 UNIT/0.5 ML ML SQ SCH ×4 (08:22→20:57)
[2020-11-06] MEDS: ASPIRIN EC 81 MG TAB PO SCH (08:23)
[2020-11-06] MEDS: PANTOPRAZOLE 40 MG INJ IVP SCH ×2 (08:23→20:56)
[2020-11-06] MEDS: CEFTRIAXONE/SWI 1gm 1 GM/10 ML SYR IVP SCH (08:23)
[2020-11-06] MEDS: lisinopriL 20 MG TAB PO SCH (08:23)
[2020-11-06] MEDS: MULTIVITAMIN TAB PO SCH (08:23)
[2020-11-06] MEDS: HYDRALAZINE HCL 25 MG TABLET PO SCH ×3 (08:23→20:56)
[2020-11-06] MEDS: HEPARIN 5000 UNIT/ML 1 ML VIAL SQ SCH ×2 (08:24→20:56)
[2020-11-06] MEDS ORDERED: D50W 25 GM/50 ML VIAL IV PRN (13:00)
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
[2020-11-06] MEDS: SUCRALFATE 1 GM TABLET PO SCH ×2 (16:15→20:56)
[2020-11-06] MEDS: METOPROLOL TAR 50 MG TAB PO SCH (16:16)
[2020-11-07 04:32] LABS: Absolute Lymphocytes (CBC) 1.7 K/uL (0.7-4.9); Basophils % 0.5 % (0-1.3); Hematocrit 38.3 % (39.6-49.0); Lymphocytes % 25.5 % (15.3-44.8); MPV 9.2 fL (7.6-11.3)
[2020-11-07 04:41] LABS: Magnesium 2.4 mg/dL (1.8-2.4); Potassium 3.8 mmol/L (3.5-5.1)
[2020-11-07] MEDS: METOPROLOL TAR 50 MG TAB PO SCH ×2 (05:14→16:04)
[2020-11-07] MEDS: NA CHLORIDE 0.9% 1,000 ML IV SCH ×2 (05:14→15:36)
[2020-11-07] MEDS: INSULIN -REGULAR HUMAN 50 UNIT/0.5 ML ML SQ SCH ×3 (07:30→16:30)
[2020-11-07] MEDS: CEFTRIAXONE/SWI 1gm 1 GM/10 ML SYR IVP SCH (08:05)
[2020-11-07] MEDS: HYDRALAZINE HCL 25 MG TABLET PO SCH ×2 (08:05→12:52)
[2020-11-07] MEDS: SUCRALFATE 1 GM TABLET PO SCH ×3 (08:05→16:05)
[2020-11-07] MEDS: PANTOPRAZOLE 40 MG INJ IVP SCH (08:05)
[2020-11-07] MEDS: HEPARIN 5000 UNIT/ML 1 ML VIAL SQ SCH (08:06)
[2020-11-07] MEDS: lisinopriL 20 MG TAB PO SCH (08:06)
[2020-11-07] MEDS: ASPIRIN EC 81 MG TAB PO SCH (08:06)
[2020-11-07] MEDS: MULTIVITAMIN TAB PO SCH (08:06)
[2020-11-07] MEDS: HYDROCODONE/APAP 7.5/325 MG TAB PO PRN (08:14)
[2020-11-07] MEDS ORDERED: POTASSIUM CL SA 10 MEQ TAB PO ONE (09:00)
[2020-11-07 16:05] VITALS: BP 173/95
[2020-11-07 17:52] VITALS: TEMP 98.7
[2020-11-07] MEDS: ONDANSETRON 4 MG/2 ML VIAL IV PRN (17:54)
[2020-11-07 18:05] VITALS: O2SAT 97
--- NOTE | 2020-11-14 03:25 | P.DS ---
Discharge Date: 11/07/20 Primary Care Provider: Dr. Horan Disposition: ROUTINE DISCHARGE Discharge Condition: GOOD Reason for Admission: Nausea, vomiting and abdominal pain Brief History of Present Illness: Patient is a 60-year-old male with history of diabetes mellitus type 2 insulin dependent, hypertension, GERD. Patient reported increased nausea, vomiting and epigastric abdominal pain since yesterday. He reports eating some chicken strips and mangoes. After that episode of eating he reported increased pain. It is persisted. He reported some black stool this morning. Patient with history of GERD. He has been without medication for quite some time. Patient was actually seen in August of 2020 with similar problems. He was told to follow up with cardiology for outpatient cardiac stress test. Troponin 0.08 at this time. Patient reports no chest pain, shortness of breath, headaches her dizziness. Blood pressure elevated. In the ER. Troponin 0.08. No significant EKG changes noted. White count 15, hemoglobin 14.7 with a platelet count of 201. Sodium 133, potassium 3.7. BUN of 48, creatinine 1.58 with a GFR 46. Glucose 334. Chest x-ray unremarkable. CT scan showed esophagitis with gallstones. Patient admitted for further evaluation and treatment. Hospital Course: Patient is doing well. Patient has symptoms of gastroesophageal reflux disease. Patient will be given PPI. At this time patient is clinically doing well but will need outpatient follow-up with Gastroenterology. Also follow with General surgery. At this time, patient is stable for discharge home. Vital Signs/Physical Exam: Temp Pulse Resp BP Pulse Ox 98.7 F 74 16 173/95 H 97 11/07/20 16:00 11/07/20 16:04 11/07/20 16:00 11/07/20 16:04 11/07/20 16:00 General: Alert, In no apparent distress, Oriented x3 Laboratory Data at Discharge: WBC 6.60 K/uL (4.3-10.9) D 11/07/20 03:58 Hgb 13.4 g/dL (13.6-17.9) L 11/07/20 03:58 Hct 38.3 % (39.6-49.0) L 11/07/20 03:58 Plt Count 162 K/uL (152-406) 11/07/20 03:58 PT 11.8 SECONDS (9.5-12.5) 11/05/20 08:03 INR 1.03 11/05/20 08:03 Sodium 137 mmol/L (136-145) 11/07/20 03:58 Potassium 3.8 mmol/L (3.5-5.1) 11/07/20 03:58 BUN 28 mg/dL (7-18) H 11/07/20 03:58 Creatinine 1.02 mg/dL (0.55-1.3) 11/07/20 03:58 Glucose 180 mg/dL (74-106) H 11/07/20 03:58 Magnesium 2.4 mg/dL (1.8-2.4) 11/07/20 03:58 Total Bilirubin 1.6 mg/dL (0.2-1.0) H 11/05/20 08:03 AST 64 U/L (15-37) H 11/05/20 08:03 ALT 48 U/L (12-78) 11/05/20 08:03 Alkaline Phosphatase 110 U/L (45-117) 11/05/20 08:03 Troponin I 0.06 ng/mL (0.0-0.045) H 11/06/20 00:59 Triglycerides 136 mg/dL (<150) 11/06/20 05:41 Cholesterol 154 mg/dL (<200) 11/06/20 05:41 HDL Cholesterol 54 mg/dL (40-60) 11/06/20 05:41 Cholesterol/HDL Ratio 2.85 11/06/20 05:41 Lipase 150 U/L (73-393) 11/05/20 08:03 Home Medications: Insulin NPH Human [Novolin N (Humulin N)*] See Protocol SQ SEEC[facility] 12/08/15 Multivit-Mins/Iron/Folic/Lycop [Centrum Ultra Men's Tablet] 1 tab PO DAILY 08/17/16 Aspirin [Lo-Dose Aspirin EC] 1 tab PO DAILY 09/17/20 lisinopriL [Prinivil*] 20 mg PO DAILY 09/17/20 Hydralazine [Apresoline*] 25 mg PO TID #90 tab 11/06/20 Metoprolol Tartrate [Lopressor*] 50 mg PO BID 6AM 6PM #60 tab 11/06/20 Pantoprazole [Protonix Tab] 40 mg PO BID #60 tab 11/06/20 Sucralfate [Carafate -Tab] 1 gm PO ACHS #120 tab 11/06/20 New Medications: Hydralazine [Apresoline*] 25 mg PO TID #90 tab Sucralfate [Carafate -Tab] 1 gm PO ACHS #120 tab Metoprolol Tartrate [Lopressor*] 50 mg PO BID 6AM 6PM #60 tab Pantoprazole [Protonix Tab] 40 mg PO BID #60 tab Physician Discharge Instructions: PROBLEM: Esophagitis GOAL: Clear understanding of disease process E-scripts sent to [facility] in [place]. INSTRUCTIONS: Patient presented with nausea, vomiting and epigastric abdominal pain. This was secondary to esophagitis noted on CT scan. Patient with history of alcohol abuse in the past. He is not drank any alcohol in over 2 years. He had been taking medication for GERD. Patient was admitted to further evaluate and treat. Patient also with acute renal insufficiency likely from dehydration. Patient has done well. Patient able to tolerate his diet. GI was consulted. Hemoglobin remained stable. Renal function improved. At discharge patient without significant nausea, vomiting or epigastric abdominal pain. H. pylori antigen obtained prior to discharge. At discharge the patient will continue with Protonix 40 mg 1 pill twice daily and Carafate 1 gm ACHS. Recommend follow-up with GI in 1 to 2 weeks to follow his hospitalization. Patient would benefit with EGD in the near future to further evaluate. Recommend follow-up with his PCP within 1 week to follow his hospitalization. PCP will need to follow-up on H. pylori antigen. If positive patient will require treatment. Education on esophagitis, H. pylori will be provided. Patient also has hypertension. This was uncontrolled. Patient had mild elevation in troponin. Patient recently hospitalized in August 2020 for chest pain. He was to follow-up with cardiology as an outpatient for cardiac stress test. Patient has not been able to do this. Spoke with cardiology at this time. No intervention needed at this time. Medications have been adjusted. At discharge patient will continue with lisinopril 20 mg daily, hydralazine 25 mg 1 pill 3 times a day, and metoprolol 50 mg 1 pill twice daily. Recommend to maintain blood pressure less than 130/80. If blood pressures remain above 140/90 he is to contact his PCP to further monitor and adjust medication. Recommend follow-up with cardiology in 2 to 4 weeks to follow-up hospitalization and set up outpatient cardiac stress test to further evaluate due to his risk factors. Patient with diabetes mellitus type 2. Patient insulin-dependent. Hyperglycemia noted. Prior A1c was elevated. A1c obtained during the hospitalization. This is pending at discharge. Recommend to maintain blood sugars less than 140 fasting and less than 200 for meals. Patient may continue with his insulin NPH. If blood sugars remain above 200 consistently he may increase his NPH by 1 to 2 units for better control. Recommend follow-up with his PCP to further address and monitor. Recommend to recheck hemoglobin A1c in 3 months to monitor his progress. Education on diabetes will be provided. Diet: 1800 calorie diet, GI soft Activity: As tolerated IMMUNIZATION Influenza Vaccine Indicated: Influenza Vaccine Given: Date Given: Pneumonia Vaccine Indicated: No Pneumonia Vaccine Given: Date Given: Diet: ADA Activity: Ad nadine Followup: Omega Horan DO [Primary Care Provider] - 1 Week (Follow up in office in 1 week. Call to schedule an appointment.) Time spent managing pt's care (in minutes): 35
== END 2020-11-07 18:09 | disposition home or self-care (01) | DRG 392 ==
LOC: ER 07:20 → ERHOLD 09:34 → 2ND 15:00 → OBSVTOIN 11-06 14:13
PROVIDERS: ADMIT Family Medicine; ATTEND Hospitalist
DX: K21.00 Gastro-esophageal reflux disease with esophagitis, without bleeding (principal); N17.9 Acute kidney failure, unspecified; A05.9 Bacterial foodborne intoxication, unspecified; E78.5 Hyperlipidemia, unspecified; E11.65 Type 2 diabetes mellitus with hyperglycemia; E86.0 Dehydration; I10 Essential (primary) hypertension; R77.8 Other specified abnormalities of plasma proteins; Z88.8 Allergy status to other drugs, medicaments and biological substances; Z89.511 Acquired absence of right leg below knee; Z79.4 Long term (current) use of insulin; Z79.899 Other long term (current) drug therapy; Z89.421 Acquired absence of other right toe(s); Z20.822 Contact with and (suspected) exposure to COVID-19
CPT/HCPCS: 36415; 71045; 74176; 80048; 80061; 80076; 81003; 81015; 82550; 82553; 82947; 83036; 83690; 83735; 83880; 84484; 85014; 85018; 85025; 85610; 93005; 96372; 96374; 96375; 99285; C9113; G0378; J0360; J0696; J1644; J1650; J2270; J2405; J2543; J3480; J7030; U0003

== ENCOUNTER 2021-05-22 12:58 | Emergency (ER) | payer OTHER ==
--- OUTSIDE RECORDS SUMMARY | 2021-05-22 13:00 | XMS REPORT | Continuity of Care Document ---
:1960 Author Organization [facility] t Address [address] [place] [address] Care Team Providers Name Role Phone Unavailable Unavailable Unavailable Problems This patient has no known problems. Allergies, Adverse Reactions, Alerts This patient has no known allergies or adverse reactions. Medications This patient has no known medications. Procedures This patient has no known procedures. Encounters Start End Encounter Admission Attending Care Care Encounter Source Date/Time Date/Time Type Type Clinicians Facility Department ID 2021-05-12 2021-05-12 amb[facility] [id number] [facility] 2021-05-08 2021-05-08 [facility] [id number] [facility] 2021-05-05 2021-05-05 ambulatory [facility] [id number] [facility] 2021-03-17 2021-03-17 Outpatient [facility] [id number] [facility] 2021-03-14 2021-03-14 [facility] [id number] [facility] 2021-03-02 2021-03-02 [facility] [id number] [facility] 2021-02-09 2021-02-09 [facility] [id number] [facility] 2020-11-10 2020-11-10 [facility] [id number] [facility] 2020-08-13 2020-08-13 [facility] [id number] [facility] 2020-07-19 2020-07-19 [facility] [id number] [facility] 2020-07-12 2020-07-12 [facility] [id number] [facility] 2020-07-12 2020-07-12 [facility] [id number] [facility] Results This patient has no known results.
[2021-05-22] MEDS ORDERED: DICYCLOMINE HCL 20 MG/2 ML AMP IM ONE (16:04)
[2021-05-22] MEDS ORDERED: ONDANSETRON 4 MG/2 ML VIAL ONE ×2 (16:04→17:52)
[2021-05-22] MEDS ORDERED: NA CHLORIDE 0.9% 1,000 ML ONE (16:04)
[2021-05-22 16:37] LABS: Absolute Lymphocytes (CBC) 1.1 K/uL (0.7-4.9); Basophils % 0.1 % (0-1.3); Hematocrit 42.7 % (39.6-49.0); Lymphocytes % 7.5 % (15.3-44.8); MPV 8.4 fL (7.6-11.3)
[2021-05-22 16:56] LABS: Bilirubin Direct 0.3 mg/dL (0-0.2); Bilirubin Total 1.3 mg/dL (0.2-1.0); Potassium 3.6 mmol/L (3.5-5.1); Protein, Total 8.5 g/dL (6.4-8.2)
--- NOTE | 2021-05-22 18:06 | RAD REPORT ---
EXAM DESCRIPTION: CTAbdomen Pelvis W Contrast - 05/22/2021 5:36 pm CLINICAL HISTORY: Abdominal pain. ABD PAIN COMPARISON: Abdomen Pelvis W Contrast dated 09/16/2020; Abdomen Pelvis W Contrast dated 12/17/2016 ; Abdomen Pelvis W Contrast dated 07/23/2016; CT ABD PELVIS W CONTRAST dated 07/24/2013 TECHNIQUE: Biphasic CT imaging of the abdomen and pelvis was performed with 100 ml non-ionic IV cont rast. All CT scans are performed using dose optimization technique as appropriate and may include automated exposure control or mA/KV adjustment according to patient size. FINDINGS: The lung bases are clear.Thickening of the wall of the distal esophagus. The liver, spleen, pancreas, adrenal glands and kidneys are within normal limits. Cholelithiasis. No bowel obstruction, free air, free fluid or abscess. Mild stool is retained throughout the colon. T he appendix is normal. No evidence of significant lymphadenopathy. Mild degenerative anterolisthesis of L4 on 5. Moderate degenerative change affects L5-S1 with vacuum disc degeneration. IMPRESSION: Cholelithiasis. Mild distal esophageal thickening. This is a nonspecific finding but may represent esophagitis.
[2021-05-22] MEDS ORDERED: PANTOPRAZOLE 40 MG INJ ONE (18:31)
--- NOTE | 2021-05-22 18:45 | EDPHYS ---
Physician Documentation [facility] Name: Noé Yang Jr Age: 61 yrs Sex: Male : 1960 Arrival Date: 05/22/2021 Time: 13:02 Bed 20 Private MD: Aung [facility], [facility]–1983 ED Physician Jake Frausto HPI: 05/22 15:46 This 61 yrs old Male presents to ER via Ambulatory with complaints of kb Abdominal Pain, Nausea/Vomiting/Diarrhea. 15:46 The patient presents with abdominal pain that is diffuse. Onset: The symptoms/episode kb began/occurred 3 day(s) ago. The symptoms do not radiate. Associated signs and symptoms: Pertinent positives: nausea and vomiting, Pertinent negatives: fever. The symptoms are described as constant. Modifying factors: The symptoms are alleviated by nothing, the symptoms are aggravated by nothing. Severity of pain: At its worst the pain was moderate in the emergency department the pain is unchanged. The patient has experienced a previous episode. The patient has not recently seen a physician. Pt states he ate something bad on Saturday, has had nausea, vomiting and abd pain since then. . Historical: - Allergies: 13:30 Actos; ss 13:30 metformin; ss 13:30 victoza; ss - PMHx: 13:30 Diabetes - IDDM; Hepatitis; Hypertension; ss - Immunization history:: Client reports having NOT received the Covid vaccine. - Social history:: Smoking status: Patient denies any tobacco usage or history of. ROS: 15:45 Constitutional: Negative for fever, chills, and weight loss. kb 15:45 Abdomen/GI: Positive for abdominal pain, nausea and vomiting, Negative for diarrhea. 15:45 All other systems are negative. Exam: 15:45 Constitutional: This is a well developed, well nourished patient who is awake, alert, kb and in no acute distress. Head/Face: Normocephalic, atraumatic. ENT: Moist Mucous membranes Cardiovascular: Regular rate and rhythm with a normal S1 and S2. No gallops, murmurs, or rubs. No pulse deficits. Respiratory: Respirations even and unlabored. No increased work of breathing, no retractions or nasal flaring. Skin: Warm, dry with normal turgor. Normal color. MS/ Extremity: Pulses equal, no cyanosis. Neurovascular intact. Full, normal range of motion. Neuro: Awake and alert, GCS 15, oriented to person, place, time, and situation. Moves all extremities. Normal gait. Psych: Awake, alert, with orientation to person, place and time. Behavior, mood, and affect are within normal limits. 15:45 Abdomen/GI: Inspection: abdomen appears normal, Bowel sounds: normal, Palpation: soft, in all quadrants, mild abdominal tenderness, in all quadrants. Vital Signs: 13:28 BP 193 / 128; Resp 17; Temp 98.0(TE); Pulse Ox 100% on R/A; Weight 68.04 kg; Height 5 ss ft. 6 in. (167.64 cm); Pain 8/10; 13:31 BP 184 / 96; Pulse 110; ss 16:45 BP 194 / 104; Pulse 90; Resp 20; Temp 97.9(O); Pulse Ox 99% on R/A; mh5 17:15 BP 165 / 98; Pulse 81; Resp 18; Temp 97.9; Pulse Ox 100% on R/A; sl2 18:23 BP 184 / 105; Pulse 112; Resp 18; Temp 98.6; Pulse Ox 100% ; sl2 18:30 BP 172 / 96; Pulse 111; Resp 18; Pulse Ox 99% on R/A; sl2 13:28 Body Mass Index 24.21 (68.04 kg, 167.64 cm) ss MDM: 15:31 Patient medically screened. kb 15:45 Data reviewed: vital signs, nurses notes. Data interpreted: Pulse oximetry: on room air kb is 100 %. Interpretation: normal. 18:23 Counseling: I had a detailed discussion with the patient and/or guardian regarding: the kb historical points, exam findings, and any diagnostic results supporting the discharge/admit diagnosis, lab results, radiology results, the need for outpatient follow up, a family practitioner, to return to the emergency department if symptoms worsen or persist or if there are any questions or concerns that arise at home. 05/22 15:32 Order name: Basic Metabolic Panel; Complete Time: 17:06 kb 05/22 15:32 Order name: CBC with Diff kb 05/22 15:32 Order name: Hepatic Function; Complete Time: 17:06 kb 05/22 15:32 Order name: Lipase; Complete Time: 17:06 kb 05/22 15:51 Order name: CT Abd/Pelvis - IV Contrast Only; Complete Time: 18:14 kb 05/22 15:32 Order name: IV Saline Lock; Complete Time: 16:31 kb 05/22 15:32 Order name: Labs collected and sent; Complete Time: 16:31 kb 05/22 18:15 Order name: PO challenge; Complete Time: 18:38 kb Administered Medications: 16:12 Drug: Zofran (Ondansetron) 4 mg Route: IVP; Site: right forearm; sl2 18:10 Follow up: Response: No adverse reaction sl2 16:14 Drug: NS 0.9% 1000 ml Route: IV; Rate: 1000 ml; Site: right forearm; sl2 18:10 Follow up: Response: No adverse reaction; IV Status: Completed infusion; IV Intake: sl2 1000ml 16:25 Drug: Bentyl (dicyclomine) 20 mg Route: IM; Site: left ventrogluteal; sl2 18:10 Follow up: Response: No adverse reaction sl2 17:55 Drug: Zofran (Ondansetron) 4 mg Route: IVP; Site: right forearm; sl2 18:38 Follow up: Response: No adverse reaction sl2 18:32 Drug: ProTONIX (pantoprazole) 40 mg Route: IVP; Site: right forearm; sl2 Disposition: 05/23 08:42 Co-signature as Attending Physician, Jake Frausto MD I agree with the assessment and liane plan of care. Disposition Summary: 05/22/21 18:44 Discharge Ordered Location: Home kb Condition: Stable kb Diagnosis - Nausea with vomiting, unspecified kb - Esophagitis, unspecified kb Followup: kb - With: Emergency Department - When: As needed - Reason: Worsening of condition Followup: kb - With: Private Physician - When: 2 - 3 days - Reason: Recheck today's complaints, Continuance of care, Re-evaluation by your physician Discharge Instructions: - Discharge Summary Sheet kb - Nausea and Vomiting, Adult, [id number] kb Forms: - Medication Reconciliation Form kb - Thank You Letter kb - Antibiotic Education kb - Prescription Opioid Use kb Prescriptions: - Protonix 40 mg Oral Tablet - take 1 tablet by ORAL route once daily; 30 tablet; Refills: 0, Product kb Selection Permitted - Zofran 4 mg Oral Tablet - take 1 tablet by ORAL route every 6 hours As needed; 20 tablet; Refills: 0, kb Product Selection Permitted Signatures: Dispatcher [employer] Annie Murphy, [employer]-C Jake Barr MD MD cha Smirch, Shelby, RN RN ss Michelle Adams RN RN sl2
--- NOTE | 2021-05-22 18:45 | ER ---
Nurse's Notes [facility] Name: Noé Yang Jr Age: 61 yrs Sex: Male : 1960 Arrival Date: 05/22/2021 Time: 13:02 Bed 20 Private MD: Omega Horan Diagnosis: Nausea with vomiting, unspecified;Esophagitis, unspecified Presentation: 05/22 13:28 Chief complaint: Patient states: N/V and abd pain that began Saturday. Pt reports this ss has happened before in the past and last time it was just the food he ate. Pt also states that his BP and BGL will probably be high because he has not taken his medication in 2 days. Pt drinking water in lobby. Coronavirus screen: Client denies travel out of the [place] in the last 14 days. Ebola Screen: Patient denies exposure to infectious person. Patient denies travel to an Ebola-affected area in the 21 days before illness onset. Initial Sepsis Screen: Does the patient meet any 2 criteria? No. Patient's initial sepsis screen is negative. Does the patient have a suspected source of infection? No. Patient's initial sepsis screen is negative. Risk Assessment: Do you want to hurt yourself or someone else? Patient reports no desire to harm self or others. Onset of symptoms was May 20, 2021. 13:28 Method Of Arrival: Ambulatory ss 13:28 Acuity: ALVARO 3 ss Triage Assessment: 16:00 General: Behavior is calm, cooperative. sl2 Historical: - Allergies: 13:30 Actos; ss 13:30 metformin; ss 13:30 victoza; ss - PMHx: 13:30 Diabetes - IDDM; Hepatitis; Hypertension; ss - Immunization history:: Client reports having NOT received the Covid vaccine. - Social history:: Smoking status: Patient denies any tobacco usage or history of. Screenin:30 Abuse screen: Denies threats or abuse. Denies injuries from another. Nutritional sl2 screening: No deficits noted. Tuberculosis screening: No symptoms or risk factors identified. Fall Risk None identified. Assessment: 15:30 General: Appears uncomfortable, well groomed, well developed. sl2 15:30 Pain: Complains of pain in abdomen Pain does not radiate. Quality of pain is described sl2 as crampy, Pain began 2-3 days ago. Is intermittent. Neuro: No deficits noted. Cardiovascular: No deficits noted. Capillary refill < 3 seconds Rhythm is regular. Respiratory: No deficits noted. GI: Abdomen is flat, Bowel sounds present X 4 quads. Abd is soft and non tender Reports cramping, nausea, vomiting, Patient currently denies diarrhea. : No deficits noted. No signs and/or symptoms were reported regarding the genitourinary system. EENT: No deficits noted. No signs and/or symptoms were reported regarding the EENT system. Derm: No deficits noted. No signs and/or symptoms reported regarding the dermatologic system. Musculoskeletal: No deficits noted. No signs and/or symptoms reported regarding the musculoskeletal system. Vital Signs: 13:28 BP 193 / 128; Resp 17; Temp 98.0(TE); Pulse Ox 100% on R/A; Weight 68.04 kg; Height 5 ss ft. 6 in. (167.64 cm); Pain 8/10; 13:31 BP 184 / 96; Pulse 110; ss 16:45 BP 194 / 104; Pulse 90; Resp 20; Temp 97.9(O); Pulse Ox 99% on R/A; mh5 17:15 BP 165 / 98; Pulse 81; Resp 18; Temp 97.9; Pulse Ox 100% on R/A; sl2 18:23 BP 184 / 105; Pulse 112; Resp 18; Temp 98.6; Pulse Ox 100% ; sl2 18:30 BP 172 / 96; Pulse 111; Resp 18; Pulse Ox 99% on R/A; sl2 13:28 Body Mass Index 24.21 (68.04 kg, 167.64 cm) ED Course: 13:02 Patient arrived in ED. kc5 13:02 Omega Horan DO is Private Physician. kc5 13:30 Triage completed. ss 13:30 Arm band placed on right wrist. ss 15:31 [facility] Slaughter [facility] kb 15:31 Jake Frausto MD is Attending Physician. kb 15:40 No provider procedures requiring assistance completed. Inserted saline lock: 22 gauge sl2 in right forearm, using aseptic technique. 16:02 Michelle Adams RN is Primary Nurse. sl2 16:46 Patient has correct armband on for positive identification. Placed in gown. Bed in low mh5 position. Call light in reach. Side rails up X 1. Warm blanket given. potline monitor on. Pulse ox on. NIBP on. 17:36 CT Abd/Pelvis - IV Contrast Only In Process Unspecified. EDMS 19:18 IV discontinued, intact, bleeding controlled, No redness/swelling at site. Pressure bb dressing applied. Administered Medications: 16:12 Drug: Zofran (Ondansetron) 4 mg Route: IVP; Site: right forearm; sl2 18:10 Follow up: Response: No adverse reaction sl2 16:14 Drug: NS 0.9% 1000 ml Route: IV; Rate: 1000 ml; Site: right forearm; sl2 18:10 Follow up: Response: No adverse reaction; IV Status: Completed infusion; IV Intake: sl2 1000ml 16:25 Drug: Bentyl (dicyclomine) 20 mg Route: IM; Site: left ventrogluteal; sl2 18:10 Follow up: Response: No adverse reaction sl2 17:55 Drug: Zofran (Ondansetron) 4 mg Route: IVP; Site: right forearm; sl2 18:38 Follow up: Response: No adverse reaction sl2 18:32 Drug: ProTONIX (pantoprazole) 40 mg Route: IVP; Site: right forearm; sl2 Intake: 18:10 IV: 1000ml; Total: 1000ml. sl2 Outcome: 18:44 Discharge ordered by . kb 19:17 Discharged to home ambulatory. bb 19:17 Condition: stable 19:17 Discharge instructions given to patient, Instructed on discharge instructions, follow up and referral plans. medication usage, Demonstrated understanding of instructions, follow-up care, medications, Prescriptions given X 2. 19:18 Patient left the ED. bb Signatures: Dispatcher [employer] EDMS Annie Slaughter, Marianna Stephens RN RN bb Shruthi Huddleston RN RN Kelli Morales [facility] Michelle Adams RN RN 2 Sharron Butt 5
[2021-05-22 19:33] VITALS: TEMP 98.6
[2021-05-22 19:34] VITALS: BP 172/96; O2SAT 99
[2021-05-22 21:34] LABS: Blood Morphology Comment NOT SEEN (NOT SEEN); Platelet Estimate ADEQ
== END 2021-05-22 19:18 | disposition home or self-care (01) ==
LOC: ER 12:58
DX: R11.2 Nausea with vomiting, unspecified (principal); K20.90 Esophagitis, unspecified without bleeding; Z88.8 Allergy status to other drugs, medicaments and biological substances
CPT/HCPCS: 96361; 85025; 80048; 36415; 80076; 83690; 74177; 96375; 96372; 96374; 99284; Q9967; J0500; C9113; J7030; J2405 ×2

== ENCOUNTER 2022-04-07 09:34 | Inpatient (IN) | payer OTHER ==
--- OUTSIDE RECORDS SUMMARY | 2022-04-07 09:39 | XMS REPORT | Continuity of Care Document ---
:1960 Author Organization [facility] t Address [address] [place] [address] Care Team Providers Name Role Phone Omega Horan Attending Clinician Unavailable Emiliano Montano Attending Clinician Unavailable Payers Payer Name Policy Type Policy Number Effective Date Expiration Date S douglas [place] [id number] [id number] 2020 Common Spiri t 00:00:[place] [id number] 2020 Common Spiri t 00:[place] [id number] 2020 Common Spiri t 00:00:[place] [id number] 2020 Common Spiri t 00:00:00 [facility] Problems Condition Condition Condition Status Onset Resolution Last Treating Co mments Source Name Details Category Date Date Treatment Clinician Date [id number] Vitreous Problem [place] [id number] hemorrhage Spirit , left eye - [facility] [id number] Ocular Problem Common hypertensi Spirit on, left - [facility] eye [facility] [id number] [place] Problem Com mon lithiasis Spirit with acute - [facility] cholecysti [facility] [id number] Status Problem Common post Spirit laparoscop - [facility] ic [facility] [id number] Gastritis/ Problem Co mmon duodenitis Spirit [facility] [id number] Benign Problem Common essential Spirit HTN [facility] [id number] Type 2 Problem Common diabetes Spirit mellitus - [facility] with [facility] [id number] Amputation Problem Co mmon of left [facility]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 2 [facility] [id number] Primary Problem Comm on osteoarthr Spirit itis of [facility] left knee [facility] [id number] Chronic Problem Commo n hepatitis [facility] C without - [facility] hepatic [facility] Amputated Right Problem Common below knee below-knee Sp angeline amputee [facility] Allergies, Adverse Reactions, Alerts Allergy Allergy Status Severity Reaction(s) Onset Inactive Treating Comm ents Source Name Type Date Date Clinician sitaglip sitaglip Active Unknown Commo n tin tin [facility] metformi metformi Active Unknown Commo n n n [facility] pioglita pioglita Active Unknown Commo n zone zone [facility] Social History Social Habit Start Date Stop Date Quantity Comments Source History of Tobacco Use Co mmon [facility] Sex Assigned At Com mon [facility] Smoking Status Start Date Stop Date Source Never Smoker Common [facility] Medications Ordered Filled Start Stop Current Ordering Indication Dosage Frequency Signature Comments Components Source Medication Medication Date Date Medication? Clinician (SIG) Name Name Bupivicaine Bupivicaine 2020-06 No 2.5mg Common Mcdonald Mcdonald 2-13 Spirit 00:00: - [facility] Kenalog Kenalog 2020-06 No 40mg Common (Triamcinol (Triamcinol 2-13 S pirit one) one) 00:00: - [facility] Bupivicaine Bupivicaine 2020-06 No 2.5mg Common Mcdonald Mcdonald 2-13 Spirit 00:00: - [facility] 00 [facility] Amairani Bales 2020-06 No 40mg Common (Triamcinol (Triamcinol 2-13 S pirit one) one) 00:00: - [facility] 00 [facility] Bupivicaine Bupivicaine 2020-06 No 2.5mg Common Mcdonald Mcdonald 2-13 Spirit 00:00: - [facility] 00 [facility] Amairani Kenchiquita 2020-06 No 40mg Common (Triamcinol (Triamcinol 2-13 S pirit one) one) 00:00: - [facility] 00 [facility] Bupivicaine Bupivicaine 2020-06 No 2.5mg Common Mcdonald Mcdonald 2-13 Spirit 00:00: - [facility] 00 [facility] Amairani Bales 2020-06 No 40mg Common (Triamcinol (Triamcinol 2-13 S pirit one) one) 00:00: - [facility] 00 [facility] Bupivicaine Bupivicaine 2020-06 No 2.5mg Common Mcdonald Mcdonald 2-13 Spirit 00:00: - [facility]I 00 [facility] Amairani Bales 2020-06 No 40mg Common (Triamcinol (Triamcinol 2-13 S pirit one) one) 00:00: - [facility] 00 [facility] Bupivicaine Bupivicaine 2020-06 No 2.5mg Common Mcdonald Mcdonald 2-13 Spirit 00:00: - [facility] 00 [facility] Amairani Bales 2020-06 No 40mg Common (Triamcinol (Triamcinol 2-13 S pirit one) one) 00:00: - [facility]I 00 [facility] Bupivicaine Bupivicaine 2020-06 No 2.5mg Common Mcdonald Mcdonald 2-13 Spirit 00:00: - [facility] 00 [facility] Amairani Bales 2020-06 No 40mg Common (Triamcinol (Triamcinol 2-13 S pirit one) one) 00:00: - [facility]I 00 [facility] Bupivicaine Bupivicaine 2020-06 No 2.5mg Common Mcdonald Mcdonald 2-13 Spirit 00:00: - [facility]I 00 [facility] Jorgealog Kenalog 2020-06 No 40mg Common (Triamcinol (Triamcinol 2-13 S pirit one) one) 00:00: - [facility]I 00 [facility] Bupivicaine Bupivicaine 2020-06 No 2.5mg Common Mcdonald Mcdonald 2-13 Spirit 00:00: - [facility]I 00 [facility] Kenchiquita Kenalog 2020-06 No 40mg Common (Triamcinol (Triamcinol 2-13 S pirit one) one) 00:00: - [facility]I 00 [facility] Bupivicaine Bupivicaine 2020-06 No 2.5mg Common Mcdonald Mcdonald 2-13 Spirit 00:00: - [facility]I 00 [facility] Kenalog 2020-06 No 40mg Common (Triamcinol (Triamcinol 2-13 S pirit one) one) 00:00: - CHI 00 [facility] Bupivicaine Bupivicaine 2020-06 No 2.5mg Common Mcdonald Mcdonald 2-13 Spirit 00:00: - [facility]I 00 [facility] Amairani Kenalog 2020-06 No 40mg Common (Triamcinol (Triamcinol 2-13 S pirit one) one) 00:00: - CHI 00 [facility] Bupivicaine Bupivicaine 2020-06 No 2.5mg Common Mcdonald Mcdonald 2-13 Spirit 00:00: - [facility]I 00 [facility] Amairani Kenalog 2020-06 No 40mg Common (Triamcinol (Triamcinol 2-13 S pirit one) one) 00:00: - [facility]I 00 [facility] Bupivicaine Bupivicaine 2020-06 No 2.5mg Common Mcdonald Mcdonald 2-13 Spirit 00:00: - [facility]I 00 [facility] Kenchiquita Kenalog 2020-06 No 40mg Common (Triamcinol (Triamcinol 2-13 S pirit one) one) 00:00: - CHI 00 [facility] Bupivicaine Bupivicaine 2020-06 No 2.5mg Common Mcdonald Mcdonald 2-13 Spirit 00:00: - [facility]I 00 [facility] Kenalog Kenalog 2020-06 No 40mg Common (Triamcinol (Triamcinol 2-13 S pirit one) one) 00:00: - [facility] 00 [facility] traMADol traMADol 2020-06- No 1{table QD traMADol HCl 50 MG HCl 50 MG 07-12 t_as_ne HCl 50 MG 00:00: 00:00 eded} 00 :00 traMADol traMADol 2020-06- No 1{table QD traMADol HCl 50 MG HCl 50 MG 07-12 t_as_ne HCl 50 MG 00:00: 00:00 eded} 00 :00 traMADol traMADol 2020-06- No 1{table QD traMADol HCl 50 MG HCl 50 MG 07-08 t_as_ne HCl 50 MG 00:00: 00:00 eded} 00 :00 Centrum Centrum No Centrum Silver Silver Silver OneTouch OneTouch No OneTouch Verio Flex Verio Flex Verio Flex System System System w/Device w/Device w/Device OneTouch OneTouch No OneTouch Verio - Verio - Verio - NovoLIN NovoLIN No BID NovoLIN 70/30 70/30 70/30 (70-30) 100 (70-30) 100 (70-30) UNIT/ML UNIT/ML 100 UNIT/ML Atorvastati Atorvastati No 1{table QD Atorvastat n Calcium n Calcium t} in Calcium 10 MG 10 MG 10 MG Lisinopril Lisinopril No 1{table QD Lisinopril 40 MG 40 MG t} 40 MG Aspirin 81 Aspirin 81 No 1{table QD Aspirin 81 81 MG 81 MG t} 81 MG Lisinopril Lisinopril No 1{table QD Lisinopril 40 MG 40 MG t} 40 MG Centrum Centrum No Centrum Silver Silver Silver OneTouch OneTouch No OneTouch Verio Flex Verio Flex Verio Flex System System System w/Device w/Device w/Device OneTouch OneTouch No OneTouch Delica Plus Delica Plus Delica Ymnrkt68C - Cigreu64L - Plus Jndxhc89Y - Aspirin 81 Aspirin 81 No 1{table QD Aspirin 81 81 MG 81 MG t} 81 MG NovoLIN NovoLIN No BID NovoLIN 70/30 70/30 70/30 (70-30) 100 (70-30) 100 (70-30) UNIT/ML UNIT/ML 100 UNIT/ML OneTouch OneTouch No OneTouch Verio - Verio - Verio - Atorvastati Atorvastati No 1{table QD Atorvastat n Calcium n Calcium t} in Calcium 10 MG 10 MG 10 MG OneTouch OneTouch No OneTouch Verio - Verio - Verio - Centrum Centrum No Centrum Silver Silver Silver Lisinopril Lisinopril No 1{table QD Lisinopril 40 MG 40 MG t} 40 MG OneTouch OneTouch No OneTouch Delica Plus Delica Plus Delica Rxorhh64B - Ahutwh73E - Plus Ewkllj10W - Aspirin 81 Aspirin 81 No 1{table QD Aspirin 81 81 MG 81 MG t} 81 MG NovoLIN NovoLIN No BID NovoLIN 70/30 70/30 70/30 (70-30) 100 (70-30) 100 (70-30) UNIT/ML UNIT/ML 100 UNIT/ML OneTouch OneTouch No OneTouch Verio Flex Verio Flex Verio Flex System System System w/Device w/Device w/Device Atorvastati Atorvastati No 1{table QD Atorvastat n Calcium n Calcium t} in Calcium 10 MG 10 MG 10 MG Atorvastati Atorvastati No 1{table QD Atorvastat n Calcium n Calcium t} in Calcium 10 MG 10 MG 10 MG Centrum Centrum No Centrum Silver Silver Silver Aspirin 81 Aspirin 81 No 1{table QD Aspirin 81 81 MG 81 MG t} 81 MG OneTouch OneTouch No OneTouch Delica Plus Delica Plus Delica Mnqrum67O - Tuqslb11U - Plus Vmvbdo59K - NovoLIN NovoLIN No BID NovoLIN 70/30 70/30 70/30 (70-30) 100 (70-30) 100 (70-30) UNIT/ML UNIT/ML 100 UNIT/ML Lisinopril Lisinopril No 1{table QD Lisinopril 40 MG 40 MG t} 40 MG OneTouch OneTouch No OneTouch Verio - Verio - Verio - OneTouch OneTouch No OneTouch Verio Flex Verio Flex Verio Flex System System System w/Device w/Device w/Device OneTouch OneTouch No OneTouch Delica Plus Delica Plus Delica Gfweim70Y - Aqflzm64Z - Plus Cxajwo81E - NovoLIN NovoLIN No BID NovoLIN 70/30 70/30 70/30 (70-30) 100 (70-30) 100 (70-30) UNIT/ML UNIT/ML 100 UNIT/ML OneTouch OneTouch No OneTouch Verio - Verio - Verio - Lisinopril Lisinopril No 1{table QD Lisinopril 40 MG 40 MG t} 40 MG Centrum Centrum No Centrum Silver Silver Silver OneTouch OneTouch No OneTouch Verio Flex Verio Flex Verio Flex System System System w/Device w/Device w/Device Aspirin 81 Aspirin 81 No 1{table QD Aspirin 81 81 MG 81 MG t} 81 MG Atorvastati Atorvastati No 1{table QD Atorvastat n Calcium n Calcium t} in Calcium 10 MG 10 MG 10 MG Lisinopril Lisinopril No 1{table QD Lisinopril 40 MG 40 MG t} 40 MG Atorvastati Atorvastati No 1{table QD Atorvastat n Calcium n Calcium t} in Calcium 10 MG 10 MG 10 MG OneTouch OneTouch No OneTouch Verio - Verio - Verio - NovoLIN NovoLIN No BID NovoLIN 70/30 70/30 70/30 (70-30) 100 (70-30) 100 (70-30) UNIT/ML UNIT/ML 100 UNIT/ML OneTouch OneTouch No OneTouch Verio Flex Verio Flex Verio Flex System System System w/Device w/Device w/Device OneTouch OneTouch No OneTouch Delica Plus Delica Plus Delica Jszaqw48P - Axbrul57S - Plus Sgyzeu57T - Aspirin 81 Aspirin 81 No 1{table QD Aspirin 81 81 MG 81 MG t} 81 MG Centrum Centrum No Centrum Silver Silver Silver Centrum Centrum No Centrum Silver Silver Silver Aspirin 81 Aspirin 81 No 1{table QD Aspirin 81 81 MG 81 MG t} 81 MG Atorvastati Atorvastati No 1{table QD Atorvastat n Calcium n Calcium t} in Calcium 10 MG 10 MG 10 MG Lisinopril Lisinopril No 1{table QD Lisinopril 40 MG 40 MG t} 40 MG OneTouch OneTouch No OneTouch Verio - Verio - Verio - OneTouch OneTouch No OneTouch Delica Plus Delica Plus Delica Oewlic00E - Phiyui70X - Plus Czwpue77S - OneTouch OneTouch No OneTouch Verio Flex Verio Flex Verio Flex System System System w/Device w/Device w/Device Atorvastati Atorvastati No Atorvastat n Calcium n Calcium in Calcium 10 MG 10 MG 10 MG NovoLIN NovoLIN No BID NovoLIN 70/30 70/30 70/30 (70-30) 100 (70-30) 100 (70-30) UNIT/ML UNIT/ML 100 UNIT/ML OneTouch OneTouch No OneTouch Verio Flex Verio Flex Verio Flex System System System w/Device w/Device w/Device Aspirin 81 Aspirin 81 No 1{table QD Aspirin 81 81 MG 81 MG t} 81 MG Atorvastati Atorvastati No 1{table QD Atorvastat n Calcium n Calcium t} in Calcium 10 MG 10 MG 10 MG OneTouch OneTouch No OneTouch Verio - Verio - Verio - Centrum Centrum No Centrum Silver Silver Silver Atorvastati Atorvastati No Atorvastat n Calcium n Calcium in Calcium 10 MG 10 MG 10 MG Lisinopril Lisinopril No 1{table QD Lisinopril 40 MG 40 MG t} 40 MG NovoLIN NovoLIN No BID NovoLIN 70/30 70/30 70/30 (70-30) 100 (70-30) 100 (70-30) UNIT/ML UNIT/ML 100 UNIT/ML OneTouch OneTouch No OneTouch Delica Plus Delica Plus Delica Ikscbq36W - Ijlidg02Z - Plus Agnrul25D - OneTouch OneTouch No OneTouch Verio Flex Verio Flex Verio Flex System System System w/Device w/Device w/Device Aspirin 81 Aspirin 81 No 1{table QD Aspirin 81 81 MG 81 MG t} 81 MG Atorvastati Atorvastati No 1{table QD Atorvastat n Calcium n Calcium t} in Calcium 10 MG 10 MG 10 MG OneTouch OneTouch No OneTouch Verio - Verio - Verio - Centrum Centrum No Centrum Silver Silver Silver Atorvastati Atorvastati No Atorvastat n Calcium n Calcium in Calcium 10 MG 10 MG 10 MG Lisinopril Lisinopril No 1{table QD Lisinopril 40 MG 40 MG t} 40 MG NovoLIN NovoLIN No BID NovoLIN 70/30 70/30 70/30 (70-30) 100 (70-30) 100 (70-30) UNIT/ML UNIT/ML 100 UNIT/ML OneTouch OneTouch No OneTouch Delica Plus Delica Plus Delica Fkoblx73D - Enqlhy27Q - Plus Unvmdx76B - OneTouch OneTouch No OneTouch Verio Flex Verio Flex Verio Flex System System System w/Device w/Device w/Device Lisinopril Lisinopril No 1{table QD Lisinopril 40 MG 40 MG t} 40 MG OneTouch OneTouch No OneTouch Delica Plus Delica Plus Delica Edkofc81P - Wefhza26B - Plus Fikxwi96I - Centrum Centrum No Centrum Silver Silver Silver NovoLIN NovoLIN No BID NovoLIN 70/30 70/30 70/30 (70-30) 100 (70-30) 100 (70-30) UNIT/ML UNIT/ML 100 UNIT/ML Aspirin 81 Aspirin 81 No 1{table QD Aspirin 81 81 MG 81 MG t} 81 MG Atorvastati Atorvastati No Atorvastat n Calcium n Calcium in Calcium 10 MG 10 MG 10 MG OneTouch OneTouch No OneTouch Verio - Verio - Verio - Atorvastati Atorvastati No 1{table QD Atorvastat n Calcium n Calcium t} in Calcium 10 MG 10 MG 10 MG OneTouch OneTouch No OneTouch Verio Flex Verio Flex Verio Flex System System System w/Device w/Device w/Device Lisinopril Lisinopril No 1{table QD Lisinopril 40 MG 40 MG t} 40 MG OneTouch OneTouch No OneTouch Delica Plus Delica Plus Delica Uvlewl28A - Ahslpt27I - Plus Ddhfrc73K - Centrum Centrum No Centrum Silver Silver Silver NovoLIN NovoLIN No BID NovoLIN 70/30 70/30 70/30 (70-30) 100 (70-30) 100 (70-30) UNIT/ML UNIT/ML 100 UNIT/ML Aspirin 81 Aspirin 81 No 1{table QD Aspirin 81 81 MG 81 MG t} 81 MG Atorvastati Atorvastati No Atorvastat n Calcium n Calcium in Calcium 10 MG 10 MG 10 MG OneTouch OneTouch No OneTouch Verio - Verio - Verio - Atorvastati Atorvastati No 1{table QD Atorvastat n Calcium n Calcium t} in Calcium 10 MG 10 MG 10 MG Centrum Centrum No Centrum Silver Silver Silver OneTouch OneTouch No OneTouch Delica Plus Delica Plus Delica Scnkde54Q - Vplcci05K - Plus Uoxksm92I - OneTouch OneTouch No OneTouch Verio - Verio - Verio - NovoLIN NovoLIN No BID NovoLIN 70/30 70/30 70/30 (70-30) 100 (70-30) 100 (70-30) UNIT/ML UNIT/ML 100 UNIT/ML OneTouch OneTouch No OneTouch Verio Flex Verio Flex Verio Flex System System System w/Device w/Device w/Device Lisinopril Lisinopril No 1{table QD Lisinopril 40 MG 40 MG t} 40 MG Aspirin 81 Aspirin 81 No 1{table QD Aspirin 81 81 MG 81 MG t} 81 MG Atorvastati Atorvastati No 1{table QD Atorvastat n Calcium n Calcium t} in Calcium 10 MG 10 MG 10 MG Atorvastati Atorvastati No Atorvastat n Calcium n Calcium in Calcium 10 MG 10 MG 10 MG Centrum Centrum No Centrum Silver Silver Silver OneTouch OneTouch No OneTouch Delica Plus Delica Plus Delica Uwkmau94Y - Tazhpd21K - Plus Vxahho40P - OneTouch OneTouch No OneTouch Verio - Verio - Verio - NovoLIN NovoLIN No BID NovoLIN 70/30 70/30 70/30 (70-30) 100 (70-30) 100 (70-30) UNIT/ML UNIT/ML 100 UNIT/ML OneTouch OneTouch No OneTouch Verio Flex Verio Flex Verio Flex System System System w/Device w/Device w/Device Lisinopril Lisinopril No 1{table QD Lisinopril 40 MG 40 MG t} 40 MG Aspirin 81 Aspirin 81 No 1{table QD Aspirin 81 81 MG 81 MG t} 81 MG Atorvastati Atorvastati No 1{table QD Atorvastat n Calcium n Calcium t} in Calcium 10 MG 10 MG 10 MG Atorvastati Atorvastati No Atorvastat n Calcium n Calcium in Calcium 10 MG 10 MG 10 MG Centrum Centrum No Centrum Silver Silver Silver OneTouch OneTouch No OneTouch Delica Plus Delica Plus Delica Jpufpi81G - Pbcqjl24S - Plus Hsmbir31X - OneTouch OneTouch No OneTouch Verio - Verio - Verio - NovoLIN NovoLIN No BID NovoLIN 70/30 70/30 70/30 (70-30) 100 (70-30) 100 (70-30) UNIT/ML UNIT/ML 100 UNIT/ML OneTouch OneTouch No OneTouch Verio Flex Verio Flex Verio Flex System System System w/Device w/Device w/Device Lisinopril Lisinopril No 1{table QD Lisinopril 40 MG 40 MG t} 40 MG Aspirin 81 Aspirin 81 No 1{table QD Aspirin 81 81 MG 81 MG t} 81 MG Atorvastati Atorvastati No 1{table QD Atorvastat n Calcium n Calcium t} in Calcium 10 MG 10 MG 10 MG Atorvastati Atorvastati No Atorvastat n Calcium n Calcium in Calcium 10 MG 10 MG 10 MG Centrum Centrum No Centrum Silver Silver Silver OneTouch OneTouch No OneTouch Delica Plus Delica Plus Delica Vmsrol80X - Znfydp53T - Plus Sklrcb44I - OneTouch OneTouch No OneTouch Verio - Verio - Verio - NovoLIN NovoLIN No BID NovoLIN 70/30 70/30 70/30 (70-30) 100 (70-30) 100 (70-30) UNIT/ML UNIT/ML 100 UNIT/ML OneTouch OneTouch No OneTouch Verio Flex Verio Flex Verio Flex System System System w/Device w/Device w/Device Lisinopril Lisinopril No 1{table QD Lisinopril 40 MG 40 MG t} 40 MG Aspirin 81 Aspirin 81 No 1{table QD Aspirin 81 81 MG 81 MG t} 81 MG Atorvastati Atorvastati No 1{table QD Atorvastat n Calcium n Calcium t} in Calcium 10 MG 10 MG 10 MG Atorvastati Atorvastati No Atorvastat n Calcium n Calcium in Calcium 10 MG 10 MG 10 MG OneTouch OneTouch No OneTouch Delica Plus Delica Plus Delica Lxrgmt48A - Bqmmgi57X - Plus Fiyhkb56L - Atorvastati Atorvastati No 1{table QD Atorvastat n Calcium n Calcium t} in Calcium 10 MG 10 MG 10 MG NovoLIN NovoLIN No BID NovoLIN 70/30 70/30 70/30 (70-30) 100 (70-30) 100 (70-30) UNIT/ML UNIT/ML 100 UNIT/ML Atorvastati Atorvastati No Atorvastat n Calcium n Calcium in Calcium 10 MG 10 MG 10 MG Lisinopril Lisinopril No 1{table QD Lisinopril 40 MG 40 MG t} 40 MG OneTouch OneTouch No OneTouch Verio Flex Verio Flex Verio Flex System System System w/Device w/Device w/Device Centrum Centrum No Centrum Silver Silver Silver Aspirin 81 Aspirin 81 No 1{table QD Aspirin 81 81 MG 81 MG t} 81 MG OneTouch OneTouch No OneTouch Verio - Verio - Verio - OneTouch OneTouch No OneTouch Delica Plus Delica Plus Delica Ijxvzr31S - Tcxbyu48G - Plus Mpmtxt23H - Atorvastati Atorvastati No 1{table QD Atorvastat n Calcium n Calcium t} in Calcium 10 MG 10 MG 10 MG NovoLIN NovoLIN No BID NovoLIN 70/30 70/30 70/30 (70-30) 100 (70-30) 100 (70-30) UNIT/ML UNIT/ML 100 UNIT/ML Atorvastati Atorvastati No Atorvastat n Calcium n Calcium in Calcium 10 MG 10 MG 10 MG Lisinopril Lisinopril No 1{table QD Lisinopril 40 MG 40 MG t} 40 MG OneTouch OneTouch No OneTouch Verio Flex Verio Flex Verio Flex System System System w/Device w/Device w/Device Centrum Centrum No Centrum Silver Silver Silver Aspirin 81 Aspirin 81 No 1{table QD Aspirin 81 81 MG 81 MG t} 81 MG OneTouch OneTouch No OneTouch Verio - Verio - Verio - OneTouch OneTouch No OneTouch Delica Plus Delica Plus Delica Rkdhuk08T - Ltckrc22O - Plus Aekwxu86W - Atorvastati Atorvastati No 1{table QD Atorvastat n Calcium n Calcium t} in Calcium 10 MG 10 MG 10 MG NovoLIN NovoLIN No BID NovoLIN 70/30 70/30 70/30 (70-30) 100 (70-30) 100 (70-30) UNIT/ML UNIT/ML 100 UNIT/ML Atorvastati Atorvastati No Atorvastat n Calcium n Calcium in Calcium 10 MG 10 MG 10 MG Lisinopril Lisinopril No 1{table QD Lisinopril 40 MG 40 MG t} 40 MG OneTouch OneTouch No OneTouch Verio Flex Verio Flex Verio Flex System System System w/Device w/Device w/Device Centrum Centrum No Centrum Silver Silver Silver Aspirin 81 Aspirin 81 No 1{table QD Aspirin 81 81 MG 81 MG t} 81 MG OneTouch OneTouch No OneTouch Verio - Verio - Verio - Centrum Centrum No Centrum Silver Silver Silver OneTouch OneTouch No OneTouch Delica Plus Delica Plus Delica Zpgfyg38O - Hvuxdt78J - Plus Mflwcg43D - OneTouch OneTouch No OneTouch Verio - Verio - Verio - NovoLIN NovoLIN No BID NovoLIN 70/30 70/30 70/30 (70-30) 100 (70-30) 100 (70-30) UNIT/ML UNIT/ML 100 UNIT/ML OneTouch OneTouch No OneTouch Verio Flex Verio Flex Verio Flex System System System w/Device w/Device w/Device Lisinopril Lisinopril No 1{table QD Lisinopril 40 MG 40 MG t} 40 MG Aspirin 81 Aspirin 81 No 1{table QD Aspirin 81 81 MG 81 MG t} 81 MG Atorvastati Atorvastati No 1{table QD Atorvastat n Calcium n Calcium t} in Calcium 10 MG 10 MG 10 MG Atorvastati Atorvastati No Atorvastat n Calcium n Calcium in Calcium 10 MG 10 MG 10 MG Centrum Centrum No Centrum Silver Silver Silver OneTouch OneTouch No OneTouch Delica Plus Delica Plus Delica Mvwymk85J - Sffjtd60P - Plus Xitvcl64X - OneTouch OneTouch No OneTouch Verio - Verio - Verio - NovoLIN NovoLIN No BID NovoLIN 70/30 70/30 70/30 (70-30) 100 (70-30) 100 (70-30) UNIT/ML UNIT/ML 100 UNIT/ML OneTouch OneTouch No OneTouch Verio Flex Verio Flex Verio Flex System System System w/Device w/Device w/Device Lisinopril Lisinopril No 1{table QD Lisinopril 40 MG 40 MG t} 40 MG Aspirin 81 Aspirin 81 No 1{table QD Aspirin 81 81 MG 81 MG t} 81 MG Atorvastati Atorvastati No 1{table QD Atorvastat n Calcium n Calcium t} in Calcium 10 MG 10 MG 10 MG Atorvastati Atorvastati No Atorvastat n Calcium n Calcium in Calcium 10 MG 10 MG 10 MG OneTouch OneTouch No OneTouch Delica Plus Delica Plus Delica Jjfbjm57B - Wrexuq13F - Plus Llrrph07B - Vital Signs Vital Name Observation Time Observation Value Comments Source height 2022-04-06 10:00:00 66.5 [in_i] [facility] weight 2022-04-06 10:00:00 158.0 [lb_av] Common [facility] temperature 2022-04-06 10:00:00 97.3 [degF] [facility] bmi 2022-04-06 10:00:00 25.12 kg/m2 [facility] oximetry 2022-04-06 10:00:00 90 % [facility] respiratory rate 2022-04-06 10:00:00 16 /min Comm on [facility] blood pressure 2022-04-06 10:00:00 119 mm[Hg] [facility] - systolic [facility] blood pressure 2022-04-06 10:00:00 80 mm[Hg] [facility] - diastolic [facility] height 2022 09:30:00 66.5 [in_i] Common S pirit [facility] weight 2022 09:30:00 152 [lb_av] Common S pirit [facility] temperature 2022 09:30:00 98.0 [degF] Common S pirit [facility] bmi 2022 09:30:00 24.16 kg/m2 Common S [facility] oximetry 2022 09:30:00 95 % Common [facility] respiratory rate 2022 09:30:00 16 /min Comm on [facility] blood pressure 2022 09:30:00 138 mm[Hg] [facility] - systolic [facility] blood pressure 2022 09:30:00 69 mm[Hg] Common [facility] - diastolic [facility] height 2022-01-08 13:30:00 66 [in_i] Common [facility] weight 2022-01-08 13:30:00 149.4 [lb_av] [facility] temperature 2022-01-08 13:30:00 98.1 [degF] Common S pirit [facility] bmi 2022-01-08 13:30:00 24.11 kg/m2 [facility] [facility] oximetry 2022-01-08 13:30:00 97 % Common [facility] respiratory rate 2022-01-08 13:30:00 17 /min Comm on [facility] blood pressure 2022-01-08 13:30:00 121 mm[Hg] Common [facility] - systolic [facility] blood pressure 2022-01-08 13:30:00 69 mm[Hg] [facility] - diastolic [facility] height 2021-12-07 09:20:00 66 [in_i] Common [facility] weight 2021-12-07 09:20:00 149.9 [lb_av] Common [facility] temperature 2021-12-07 09:20:00 98.4 [degF] [facility] bmi 2021-12-07 09:20:00 24.19 kg/m2 Common S pirit [facility] oximetry 2021-12-07 09:20:00 96 % Common [facility] respiratory rate 2021-12-07 09:20:00 17 /min Comm on [facility] blood pressure 2021-12-07 09:20:00 132 mm[Hg] Common [facility] - systolic [facility] blood pressure 2021-12-07 09:20:00 74 mm[Hg] Common [facility] - diastolic [facility] height 2021-08-07 10:30:00 66 [in_i] Common [facility] weight 2021-08-07 10:30:00 157.2 [lb_av] [facility] temperature 2021-08-07 10:30:00 97.8 [degF] Common [facility] bmi 2021-08-07 10:30:00 25.37 kg/m2 [facility] oximetry 2021-08-07 10:30:00 100 % Common [facility] respiratory rate 2021-08-07 10:30:00 18 /min Comm on [facility] blood pressure 2021-08-07 10:30:00 137 mm[Hg] [facility] - systolic [facility] blood pressure 2021-08-07 10:30:00 76 mm[Hg] Common [facility] - diastolic [facility] height 2021-05-12 10:50:00 66 [in_i] Common [facility] weight 2021-05-12 10:50:00 157.0 [lb_av] [facility] temperature 2021-05-12 10:50:00 98.1 [degF] [facility] 2021-05-12 10:50:00 25.34 kg/m2 Common [facility] oximetry 2021-05-12 10:50:00 100 % Common [facility] respiratory rate 2021-05-12 10:50:00 16 /min Comm on [facility] blood pressure 2021-05-12 10:50:00 132 mm[Hg] Common [facility] - systolic [facility] blood pressure 2021-05-12 10:50:00 72 mm[Hg] Common [facility] - diastolic [facility] height 2021-05-08 08:40:00 66 [in_i] Common [facility] weight 2021-05-08 08:40:00 157.0 [lb_av] Common [facility] temperature 2021-05-08 08:40:00 96.9 [degF] Common [facility] bmi 2021-05-08 08:40:00 25.34 kg/m2 [facility] oximetry 2021-05-08 08:40:00 99 % [facility] respiratory rate 2021-05-08 08:40:00 18 /min Comm on [facility] blood pressure 2021-05-08 08:40:00 122 mm[Hg] Common [facility] - systolic [facility] blood pressure 2021-05-08 08:40:00 80 mm[Hg] Common [facility] diastolic [facility] Procedures This patient has no known procedures. Encounters Start End Encounter Admission Attending Care Care Encounter Source Date/Time Date/Time Type Type Clinicians Facility Department ID 2022-04-[address] [facility] [id number] Common 08:30:03 [facility] [id number] [facility] 2021-12-20 [address] [facility] [id number] Common 11:56:02 [facility] 2021-08-03 Outpatient Horan, STLMLC STLMLC Common 17:19:01 [facility] 2021-07-25 Outpatient Horan, STLMLC STLMLC Common 10:00:03 [facility] 2021-07-19 Outpatient Horan, STLMLC STLMLC Common 14:16:53 [facility] 2021-07-19 Outpatient Horan, STLMLC STLMLC Common 14:15:44 [facility] 2021-07-19 Outpatient Horan, STLMLC STLMLC Common 14:15:19 [facility] 2021-07-19 Outpatient Horan, STLMLC STLMLC Common 14:14:02 [facility] 2021-07-19 Outpatient Horan, STLMLC STLMLC Common 14:13:04 [facility] 2021-07-19 Outpatient Horan, STLMLC STLMLC Common 14:12:27 [facility] 2021-07-19 Outpatient Horan, STLMLC STLMLC Common 14:07:06 [facility] [id number] [facility] 2021-07-19 Outpatient Horan, STLMLC STLMLC Common 13:39:58 [facility] [address]366 [facility] 2021-07-19 Outpatient Horan, STLMLC STLMLC Common 13:04:23 [facility] [address] [facility] 2021-07-19 Outpatient Horan, STLMLC STLMLC Common 12:31:34 Omega [address] [facility] 2021-07-19 Outpatient Horan, STLMLC STLMLC Common 12:30:18 [facility] [address]108 [facility] 2021-07-19 Outpatient Horan, STLMLC STLMLC [id number] Common 12:24:12 Omega [id number] [facility] 2021-07-19 Outpatient Aranzav, STLMLC STLMLC [id number] Common 12:22:51 Emiliano [address] [facility] 2022-04-06 2022-04-06 (HOSP F/U) STLMLC STLMLC [id number] Common 00:00:00 00:00:00 Hospital Spiri t Follow Up [facility] 2022-04-06 2022-04-06 (TEL) STLMLC STLMLC [id number] Co mmon 00:00:00 00:00:00 [facility] 2022-04-05 2022-04-05 (TEL) STLMLC STLMLC [id number] Co mmon 00:00:00 00:00:00 [facility] 2022-04-02 2022-04-02 (TEL) STLMLC STLMLC [id number] Co mmon 00:00:00 00:00:00 [facility] 2022-04-02 2022-04-02 (TEL) STLMLC STLMLC [id number] Co mmon 00:00:00 00:00:00 [facility] 2022-03-06 2022-03-06 (TEL) STLMLC STLMLC [id number] Co mmon 00:00:00 00:00:00 [facility] 2022 2022 (WELLNESS) STLMLC STLMLC [id number] Common 00:00:00 00:00:00 Wellness Spiri t Visit [facility] 2022-01-08 2022-01-08 OFFICE STLMLC STLMLC [id number] Co mmon 00:00:00 00:00:00 VISIT EST Spir it PT LEVEL 3 - [facility] 2022-01-08 2022-01-08 (TEL) STLMLC STLMLC [id number] Co mmon 00:00:00 00:00:00 [facility] 2021-12-20 2021-12-20 (TEL) STLMLC STLMLC [id number] Co mmon 00:00:00 00:00:00 [facility] 2021-12-07 2021-12-07 OFFICE STLMLC STLMLC [id number] Co mmon 00:00:00 00:00:00 VISIT EST Spir it PT LEVEL 3 - [facility] 2021-12-04 2021-12-04 (TEL) STLMLC STLMLC [id number] Co mmon 00:00:00 00:00:00 [facility] 2021-08-07 2021-08-07 OFFICE STLMLC STLMLC [id number] Co mmon 00:00:00 00:00:00 VISIT [facility] PT - CHI LEVEL 4 [facility] 2021-08-02 2021-08-02 (TEL) STLMLC STLMLC [id number] Co mmon 00:00:00 00:00:00 [facility] 2021-05-12 2021-05-12 OFFICE STLMLC STLMLC [id number] Co mmon 00:00:00 00:00:00 VISIT [facility] PT - CHI LEVEL 4 [facility] 2021-05-08 2021-05-08 (TEL) STLMLC STLMLC [id number] Co mmon 00:00:00 00:00:00 [facility] 2021-05-08 2021-05-08 OFFICE STLMLC STLMLC [id number] Co mmon 00:00:00 00:00:00 VISIT EST Spir it PT LEVEL 3 [facility] 2021-05-05 2021-05-05 (TEL) STLMLC STLMLC [id number] Co mmon 00:00:00 00:00:00 [facility] 2021-03-17 2021-03-17 Outpatient STLMLC STLMLC [id number] Common 00:00:00 00:00:00 [facility] 2021-03-14 2021-03-14 Outpatient STLMLC STLMLC [id number] Common 00:00:00 00:00:00 [facility] 2021-03-02 2021-03-02 Outpatient STLMLC STLMLC [id number] Common 00:00:00 00:00:00 [facility] 2021-02-09 2021-02-09 Outpatient STLMLC STLMLC [id number] Common 00:00:00 00:00:00 [facility] 2020-11-10 2020-11-10 Outpatient STLMLC STLMLC [id number] Common 00:00:00 00:00:00 [facility] 2020-08-13 2020-08-13 Outpatient STLMLC STLMLC [id number] Common 00:00:00 00:00:00 [facility] 2020-07-19 2020-07-19 Outpatient STLMLC STLMLC [id number] Common 00:00:00 00:00:00 [facility] 2020-07-12 2020-07-12 Outpatient STLMLC STLMLC [id number] Common 00:00:00 00:00:00 [facility] 2020-07-12 2020-07-12 Outpatient STLMLC STLMLC [id number] Common 00:00:00 00:00:00 [facility] Results This patient has no known results.
--- NOTE | 2022-04-07 11:41 | RAD REPORT ---
EXAM DESCRIPTION: RAD - Foot Left 3 View - 04/07/2022 11:24 am CLINICAL HISTORY: Left Foot pain and swelling FINDINGS: Lucency mid to distal aspect fifth proximal phalanx probably osteomyelitis. This should be correlated clinically. Soft tissue swelling. Osteoporosis. No fracture or dislocation seen. Moderate plantar calcaneal spur
--- NOTE | 2022-04-07 12:25 | EDPHYS ---
Physician Documentation [facility] Name: Noé Yang Jr Age: 62 yrs Sex: Male : 1960 Arrival Date: 04/07/2022 Time: 09:36 Bed 20 Private MD: Aung [facility] ED Physician Yoshi Green HPI: 04/07 17:20 This 62 yrs old Male presents to ER via Ambulatory with complaints of foot kdr swelling. 17:20 Patient states that he has had swelling of his left foot for a number of months at kdr least 2,. He states he recently had his gallbladder taken out he is now recovered from that. He is concerned that if he does not get this wound and swelling addressed, that he will have to have his left leg amputated. Onset: The symptoms/episode began/occurred gradually, 2 month(s) ago. Severity of symptoms: At their worst the symptoms were mild in the emergency department the symptoms are unchanged. The patient has experienced similar episodes in the past, chronically. The patient has not recently seen a physician. Historical: - Allergies: 09:53 Actos; jl7 09:53 Januvia; jl7 09:53 metformin; jl7 09:53 victoza; jl7 - Home Meds: 11:06 lisinopril 20 mg oral tab 1 tab once daily for hypertension [Active]; Novolin N NPH kc6 U-100 Insulin subcutaneous after meals and before bedtime for type 1 diabetes mellitus [Active]; aspirin 81 mg Oral cap 1 cap once daily for myocardial infarction prevention [Active]; atorvastatin 10 mg oral tab 1 tab once daily for hypercholesterolemia [Active]; - PMHx: 09:53 Diabetes - IDDM; Hepatitis; Hypertension; jl7 - PSHx: 09:53 Right BKA; jl7 10:56 Cholecystectomy; kc6 - Immunization history:: Client reports having NOT received the Covid vaccine. - Social history:: Smoking status: Patient denies any tobacco usage or history of. ROS: 17:20 Constitutional: Negative for fever, chills, and weight loss, Eyes: Negative for injury, kdr pain, redness, and discharge, ENT: Negative for injury, pain, and discharge, Neck: Negative for injury, pain, and swelling, Cardiovascular: Negative for chest pain, palpitations, and edema, Respiratory: Negative for shortness of breath, cough, wheezing, and pleuritic chest pain, Abdomen/GI: Negative for abdominal pain, nausea, vomiting, diarrhea, and constipation, Back: Negative for injury and pain, : Negative for injury, bleeding, discharge, and swelling, Skin: Negative for injury, rash, and discoloration, Neuro: Negative for headache, weakness, numbness, tingling, and seizure activity. Psych: Negative for depression, anxiety, suicide ideation, homicidal ideation, and hallucinations, Allergy/Immunology: Negative for hives, rash, and allergies, Endocrine: Negative for neck swelling, polydipsia, polyuria, polyphagia, and marked weight changes, Hematologic/Lymphatic: Negative for swollen nodes, abnormal bleeding, and unusual bruising. 17:20 MS/extremity: Positive for erythema, pain, swelling, tenderness, of the left foot. Exam: 17:20 Constitutional: This is a well developed, well nourished patient who is awake, alert, kdr and in no acute distress. Head/Face: Normocephalic, atraumatic. Neck: Trachea midline, no thyromegaly or masses palpated, and no cervical lymphadenopathy. Supple, full range of motion without nuchal rigidity, or vertebral point tenderness. No Meningismus. Chest/axilla: Normal chest wall appearance and motion. Nontender with no deformity. No lesions are appreciated. Cardiovascular: Regular rate and rhythm with a normal S1 and S2. No gallops, murmurs, or rubs. Normal PMI, no JVD. No pulse deficits. Respiratory: Lungs have equal breath sounds bilaterally, clear to auscultation and percussion. No rales, rhonchi or wheezes noted. No increased work of breathing, no retractions or nasal flaring. Abdomen/GI: Soft, non-tender, with normal bowel sounds. No distension or tympany. No guarding or rebound. No evidence of tenderness throughout. Back: No spinal tenderness. No costovertebral tenderness. Full range of motion. Neuro: Awake and alert, GCS 15, oriented to person, place, time, and situation. Cranial nerves II-XII grossly intact. Motor strength 5/5 in all extremities. Sensory grossly intact. Cerebellar exam normal. Normal gait. Psych: Awake, alert, with orientation to person, place and time. Behavior, mood, and affect are within normal limits. 17:20 Skin: cellulitis, that is mild, confluent, on the lateral side of left foot and dorsum of left foot. Vital Signs: 09:52 BP 123 / 69; Pulse 87; Resp 17; Temp 98.6; Pulse Ox 100% ; Weight 71.67 kg; Height 5 jl7 ft. 6 in. (167.64 cm); Pain 3/10; 10:56 BP 134 / 83 LA Sitting (auto/reg); Pulse 70 LA; Resp 16; Temp 98.5(O); Pulse Ox 96% on kc6 R/A; Pain 4/10; 12:22 BP 120 / 74; Pulse 61; Resp 17 S; Pulse Ox 96% on R/A; kc6 13:28 BP 130 / 86 LA Sitting (auto/reg); Pulse 71 LA; Resp 17; Temp 98.4(O); Pulse Ox 99% on kc6 R/A; 14:50 BP 141 / 84 LA Supine (auto/reg); Pulse 92 LA; Resp 16 S; Pulse Ox 93% on R/A; kc6 16:22 BP 155 / 96 Sitting; Pulse 71; Resp 16 S; Pulse Ox 95% on R/A; Weight 70.31 kg; Height kc6 5 ft. 6 in. (167.64 cm); Pain 3/10; 16:22 Body Mass Index 25.02 (70.31 kg, 167.64 cm) kc6 MDM: 12:24 Patient medically screened. kdr 17:20 Data reviewed: vital signs, nurses notes, lab test result(s), radiologic studies. kdr Counseling: I had a detailed discussion with the patient and/or guardian regarding: the historical points, exam findings, and any diagnostic results supporting the discharge/admit diagnosis, lab results, radiology results, the need for further work-up and treatment in the hospital. 04/07 12:23 Order name: CBC with Diff kdr 04/07 12:23 Order name: Chem 7 kdr 04/07 10:56 Order name: Foot Left 3 View XRAY; Complete Time: 12:18 eb 04/07 12:23 Order name: US Extremity Venous Unilateral Ltd kdr 04/07 13:27 Order name: SARS RAPID eb 04/07 16:39 Order name: EDMS Administered Medications: 13:04 Drug: Rocephin - (cefTRIAXone) 2 grams Route: IVPB; Infused Over: 30 mins; Site: left kc6 wrist; 13:27 Follow up: Response: No adverse reaction; IV Status: Completed infusion; IV Intake: kc6 100ml 13:27 Drug: vancoMYCIN 1.5 grams Route: IVPB; Rate: calculated rate; Site: left wrist; kc6 16:20 Follow up: Response: No adverse reaction; RASS: Alert and Calm (0); IV Status: kc6 Completed infusion; IV Intake: 500ml Disposition Summary: 04/07/22 12:24 Hospitalization Ordered Hospitalization Status: Inpatient Admission kdr Provider: Per Rader Location: Telemetry/MedSurg (Inpatient) kdr Condition: Fair kdr Problem: an ongoing problem kdr Symptoms: are unchanged kdr Bed/Room Type: Standard kdr Room Assignment: 427(04/07/22 16:00) eb Diagnosis - Osteomyelitis, unspecified - left foot kdr Forms: - Medication Reconciliation Form kdr - SBAR form kdr Signatures: Dispatcher [employer] Yoshi Del Cid MD MD kdr Leal, Jahala, RN RN jl7 Sylvia Aleman Kaitlyn RN RN kc6 Corrections: (The following items were deleted from the chart) 16:00 12:24 kdr eb
--- NOTE | 2022-04-07 12:25 | ER ---
Nurse's Notes [facility] Name: Noé Yang Jr Age: 62 yrs Sex: Male : 1960 Arrival Date: 04/07/2022 Time: 09:36 Bed 20 Private MD: Omega Horan Diagnosis: Osteomyelitis, unspecified-left foot Presentation: 04/07 09:52 Chief complaint: Patient states: Left foot swelling x 2 months. Coronavirus screen: At [facility] this time, the client does not indicate any symptoms associated with coronavirus-19. Ebola Screen: No symptoms or risks identified at this time. Initial Sepsis Screen: Does the patient meet any 2 criteria? No. Patient's initial sepsis screen is negative. Does the patient have a suspected source of infection? No. Patient's initial sepsis screen is negative. Risk Assessment: Do you want to hurt yourself or someone else? Patient reports no desire to harm self or others. Onset of symptoms was January 2022. 09:52 Method Of Arrival: Ambulatory [facility] 09:52 Acuity: ALVARO 3 [facility] Triage Assessment: 09:53 General: Appears in no apparent distress. uncomfortable, Behavior is calm, cooperative, jl7 appropriate for age. Pain: Complains of pain in left foot Pain currently is 3 out of 10 on a pain scale. Historical: - Allergies: 09:53 Actos; jl7 09:53 Januvia; jl7 09:53 metformin; jl7 09:53 victoza; jl7 - Home Meds: 11:06 lisinopril 20 mg oral tab 1 tab once daily for hypertension [Active]; Novolin N NPH 6 U-100 Insulin subcutaneous after meals and before bedtime for type 1 diabetes mellitus [Active]; aspirin 81 mg Oral cap 1 cap once daily for myocardial infarction prevention [Active]; atorvastatin 10 mg oral tab 1 tab once daily for hypercholesterolemia [Active]; - PMHx: 09:53 Diabetes - IDDM; Hepatitis; Hypertension; jl7 - PSHx: 09:53 Right BKA; jl7 10:56 Cholecystectomy; kc6 - Immunization history:: Client reports having NOT received the Covid vaccine. - Social history:: Smoking status: Patient denies any tobacco usage or history of. Screenin:06 Abuse screen: Denies threats or abuse. Denies injuries from another. Nutritional kc6 screening: No deficits noted. Tuberculosis screening: No symptoms or risk factors identified. Fall Risk No fall in past 12 months (0 pts). Secondary diagnosis (15 points) No IV (0 pts). Ambulatory Aid- None/Bed Rest/Nurse Assist (0 pts). Gait- Normal/Bed Rest/Wheelchair (0 pts) Mental Status- Oriented to own ability (0 pts). Total Mc Fall Scale indicates No Risk (0-24 pts). Assessment: 11:00 General: Appears in no apparent distress. comfortable, Behavior is calm, cooperative, kc6 appropriate for age. Pain: Complains of pain in left foot Pain does not radiate. Pain currently is 4 out of 10 on a pain scale. Pain began gradually, Is continuous, Alleviated by rest, repositioning, Aggravated by increased activity. Neuro: Munoz Agitation-Sedation Scale (RASS): 0 - Alert and Calm Level of Consciousness is awake, alert, obeys commands, Oriented to person, place, time, situation, Appropriate for age. Cardiovascular: Capillary refill < 3 seconds Patient's skin is warm and dry. Cardiovascular: Pulses are palpable in left posterior tibial artery and left dorsalis pedis artery are 1+ in left posterior tibial artery and left dorsalis pedis artery Edema is 4+ to left midcalf, left ankle, left foot and left toes pitting to left midcalf, left ankle, left foot and left toes. Respiratory: Airway is patent Respiratory effort is even, unlabored, Respiratory pattern is regular, symmetrical. GI: No signs and/or symptoms were reported involving the gastrointestinal system. : No signs and/or symptoms were reported regarding the genitourinary system. EENT: No signs and/or symptoms were reported regarding the EENT system. Derm: No signs and/or symptoms reported regarding the dermatologic system. Musculoskeletal: No signs and/or symptoms reported regarding the musculoskeletal system. 12:22 Reassessment: Patient appears in no apparent distress at this time. No changes from kc6 previously documented assessment. Patient and/or family updated on plan of care and expected duration. Pain level reassessed. Patient is alert, oriented x 3, equal unlabored respirations, skin warm/dry/pink. 13:27 Reassessment: Patient appears in no apparent distress at this time. No changes from kc6 previously documented assessment. Patient and/or family updated on plan of care and expected duration. Pain level reassessed. Patient is alert, oriented x 3, equal unlabored respirations, skin warm/dry/pink. 14:49 Reassessment: Patient appears in no apparent distress at this time. No changes from kc6 previously documented assessment. Patient and/or family updated on plan of care and expected duration. Pain level reassessed. Patient is alert, oriented x 3, equal unlabored respirations, skin warm/dry/pink. 16:22 Reassessment: Patient appears in no apparent distress at this time. No changes from kc6 previously documented assessment. Patient and/or family updated on plan of care and expected duration. Pain level reassessed. Patient is alert, oriented x 3, equal unlabored respirations, skin warm/dry/pink. Vital Signs: 09:52 BP 123 / 69; Pulse 87; Resp 17; Temp 98.6; Pulse Ox 100% ; Weight 71.67 kg; Height 5 jl7 ft. 6 in. (167.64 cm); Pain 3/10; 10:56 BP 134 / 83 LA Sitting (auto/reg); Pulse 70 LA; Resp 16; Temp 98.5(O); Pulse Ox 96% on kc6 R/A; Pain 4/10; 12:22 BP 120 / 74; Pulse 61; Resp 17 S; Pulse Ox 96% on R/A; kc6 13:28 BP 130 / 86 LA Sitting (auto/reg); Pulse 71 LA; Resp 17; Temp 98.4(O); Pulse Ox 99% on kc6 R/A; 14:50 BP 141 / 84 LA Supine (auto/reg); Pulse 92 LA; Resp 16 S; Pulse Ox 93% on R/A; kc6 16:22 BP 155 / 96 Sitting; Pulse 71; Resp 16 S; Pulse Ox 95% on R/A; Weight 70.31 kg; Height kc6 5 ft. 6 in. (167.64 cm); Pain 3/10; 16:22 Body Mass Index 25.02 (70.31 kg, 167.64 cm) 6 ED Course: 09:36 Patient arrived in ED. am2 09:36 None, None is Private Physician. am2 09:36 Omega Horan DO is Private Physician. am2 09:40 Yoshi Green MD is Attending Physician. kdr 09:53 Triage completed. jl7 09:53 Arm band placed on right wrist. jl7 10:55 Rosa Begum, RN is Primary Nurse. kc6 11:26 Foot Left 3 View XRAY In Process Unspecified. EDMS 12:23 Per Rader MD is Hospitalizing Provider. kdr 12:55 Chem 7 Sent. kc6 12:55 CBC with Diff Sent. kc6 13:04 Inserted saline lock: 22 gauge in left wrist, using aseptic technique. Blood collected. kc6 13:33 US Extremity Venous Unilateral Ltd In Process Unspecified. EDMS 13:58 SARS RAPID Sent. kc6 16:23 Patient has correct armband on for positive identification. Bed in low position. Call kc6 light in reach. Side rails up X2. 16:23 No provider procedures requiring assistance completed. Patient admitted, IV remains in kc6 place. Administered Medications: 13:04 Drug: Rocephin - (cefTRIAXone) 2 grams Route: IVPB; Infused Over: 30 mins; [facility]: [facility]; 13:27 Follow up: Response: No adverse reaction; IV Status: Completed infusion; IV Intake: kc6 100ml 13:27 Drug: vancoMYCIN 1.5 grams Route: IVPB; Rate: calculated rate; Site: left wrist; kc6 16:20 Follow up: Response: No adverse reaction; RASS: Alert and Calm (0); IV Status: kc6 Completed infusion; IV Intake: 500ml Medication: 16:41 VIS not applicable for this client. kc6 Intake: 13:27 IV: 100ml; Total: 100ml. kc6 16:20 IV: 500ml; Total: 600ml. kc Outcome: 12:24 Decision to Hospitalize by Provider. kdr 16:39 Admitted to Tele accompanied by nurse, via wheelchair, with chart, Report called to kc KEYLA Cox 16:39 Condition: stable 16:39 Instructed on the need for admit. 16:42 [facility] Signatures: Dispatcher [employer] EDMS Yoshi Green MD MD kdr Leal, Jahala, RN RN jl7 Caroline Christopher am2 Rosa Begum, RN RN ace
[2022-04-07] MEDS ORDERED: CEFTRIAXONE 2000 MG/VIAL ONE (12:31)
[2022-04-07] MEDS ORDERED: NA CHLORIDE 0.9% 100 ML IV ONE (12:32)
[2022-04-07 13:00] LABS: Absolute Lymphocytes (CBC) 1.8 K/uL (0.7-4.9); Hematocrit 25.7 % (39.6-49.0); Lymphocytes % 26.2 % (15.3-44.8); MCV 97.9 fL (80-100); MPV 7.1 fL (7.6-11.3); RBC Red Blood Cell Count 2.62 M/uL (4.33-5.43)
[2022-04-07] MEDS ORDERED: VANCOMYCIN 1.5 GM in NA CHLORIDE 0.9% 500 ML IV ONE (13:00)
[2022-04-07 13:18] LABS: Potassium 4.2 mmol/L (3.5-5.1)
--- NOTE | 2022-04-07 14:04 | RAD REPORT ---
[facility] DES[facility]04/07/2022 1:31 pm CLINICAL HISTORY: left leg pain COMPARISON: None FINDINGS: Left common femoral, superficial femoral, popliteal and posterior tibial veins are compre ssible and demonstrate augmentation. Doppler demonstrates good flow. Grayscale, color and spectral analysis performed on all vessels IMPRESSION: No evidence of deep venous thrombosis involving the left lower extremity.
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
[2022-04-07 14:43] LABS: SARS-CoV-2 Antigen Rapid Res Negative (Negative)
--- NOTE | 2022-04-07 16:38 | RAD REPORT ---
EXAM DESCRIPTION: US - Lower Extremity Artery Uni Ltd - 04/07/2022 3:58 pm CLINICAL HISTORY: Leg pain COMPARISON: None FINDINGS: The left common femoral arterial waveform is biphasic Left superficial femoral and popliteal waveforms triphasic The left posterior tibial and dorsalis pedis arteries demonstrate monophasic waveforms Grayscale, color and spectral analysis performed on all vessels IMPRESSION: Moderate distal arterial disease left lower extremity. No significant proximal or mid lower extremity stenosis
[2022-04-07] MEDS ORDERED: ONDANSETRON 4 MG/2 ML VIAL IV PRN (16:40)
[2022-04-07] MEDS: INSULIN -REGULAR HUMAN 50 UNIT/0.5 ML ML SQ SCH ×2 (16:40→21:00)
[2022-04-07] MEDS ORDERED: ACETAMINOPHEN 500 MG TAB PO PRN (16:40)
[2022-04-07 18:16] VITALS: BMI 25.0
[2022-04-07 19:47] LABS: Specific Gravity 1.009 (1.005-1.030); Urine Bilirubin NEGATIVE (Negative); Urine Blood Negative (Negative); Urine Clarity Clear (Clear); Urine Color Colorless (Yellow); Urine Glucose NEGATIVE (Negative); Urine Protein 1+ (Negative); Urine RBC <5 /HPF (None Seen); Urine Urobilinogen Normal (Normal); Urine pH 7.5 (5.0-7.0)
[2022-04-08] MEDS ORDERED: VANCOMYCIN 1.5 GM in NA CHLORIDE 0.9% 500 ML IVPB SCH (01:00)
[2022-04-08] MEDS ORDERED: VANCOMYCIN 1 GM/VIAL ONE (01:14)
[2022-04-08] MEDS ORDERED: NA CHLORIDE 0.9% 500 ML ONE (01:14)
[2022-04-08 06:29] LABS: Absolute Lymphocytes (CBC) 1.3 K/uL (0.7-4.9); Hematocrit 26.8 % (39.6-49.0); Lymphocytes % 21.9 % (15.3-44.8); MCV 98.4 fL (80-100); MPV 7.1 fL (7.6-11.3); RBC Red Blood Cell Count 2.72 M/uL (4.33-5.43)
[2022-04-08 06:48] LABS: Albumin 2.4 g/dL (3.4-5.0); Bilirubin Total 0.6 mg/dL (0.2-1.0); C-Reactive Protein 6.3 mg/L (<3.00); Magnesium 1.9 mg/dL (1.8-2.4); Potassium 4.1 mmol/L (3.5-5.1); Protein, Total 5.7 g/dL (6.4-8.2)
[2022-04-08] MEDS: INSULIN -REGULAR HUMAN 50 UNIT/0.5 ML ML SQ SCH ×4 (07:30→21:14)
[2022-04-08] MEDS: CEFTRIAXONE 1,000 MG in NA CHLORIDE 0.9% 50 ML IVPB SCH (10:02)
[2022-04-08] MEDS: ENOXAPARIN 40 MG/0.4 ML SQ SCH (10:02)
[2022-04-08] MEDS: ASPIRIN EC 81 MG TAB PO SCH (10:03)
[2022-04-08] MEDS: lisinopriL 20 MG TAB PO SCH (10:03)
[2022-04-08] MEDS: VANCOMYCIN 1.25 GM in NA CHLORIDE 0.9% 250 ML IVPB SCH (13:39)
--- NOTE | 2022-04-08 17:28 | CON ---
Date of Consultation: 04/08/2022 Diagnosis: Osteomyelitis of the left fifth toe. History Of Present Illness: This is the case of a 62-year-old , who comes to us with a wor sening nonhealing wound on the left fifth toe. He has experienced with extremity problem. He has an amputation of the opposite leg, below-knee amputation due to chronic findings of osteomyelitis and o pen wounds. He noticed discharge on the left fifth toe increasing in size, and he came to the ER. Unique abdi was admitted for IV antibiotics and treatment. He recently had a surgery about 2 weeks ago for cho lecystectomy by Dr. Santana, although he is not available this weekend. He wants me to see the patie nt and the patient wants me to see him this weekend. Past Surgical History: Once again a right BKA, lap monie. Medical Problems: Include hyperlipidemia, GERD, hypertension, diabetes. Family History: Includes diabetes. Social History: He is former smoker. He does not use any illicit drugs. Drinks alcohol occasionall y. Review of Systems: No nausea. No vomiting. No fever. No shortness of breath. No chest pain. Ten points otherwise un remarkable. See H and P. Physical Examination: General: The patient is awake, alert. HEENT: Pupils are equal and reactive. Anicteric. Neck: Supple. Chest: Clear. Abdomen: Soft and depressible. Extremity: Right BKA. On the left side, the patient has an ulcer on the lateral aspect of the fifth toe with cellulitis and tenderness over that area. Laboratory Data: X-rays show findings with possible osteomyelitis of the left fifth toe. Blood work shows WBC count of 6.9, hemoglobin of 8.8. Ultrasound shows moderate distal arterial disease in the left lower extremity. Venous Doppler interpreted by Dr. Pickens as no evidence of DVTs. Assessment: It is a 62-year-old patient with osteomyelitis on the left fifth toe. MRI is pending to confirm those findings. He has history of diabetes. He has his vascular surgeons previously, who e valuated the peripheral vascular disease. From the surgical standpoint, he is trying to decide if he is going to treat this with long-term antibiotics or just amputate his fifth toe. He has not made h is final decision yet. He is waiting for the MRI to be able to collect that data and if he believes that it may be 6 weeks, he might just ask the surgeon to remove that toe and remove the os teomyelitis at that moment. We encouraged him to once again not smoke, follow with the vascular surg daphne to see for possibility to increase blood supply to that area, avoiding trauma, using diabetic soledad es, and controlling his diabetes. SHANDRA/MODL Voice ID: [id number] Report ID: [id number]
--- NOTE | 2022-04-08 20:27 | P.PN ---
Date of Service: 04/08/22 Subjective: no acute events overnight swelling improved no new/worsening symptoms ROS: 10 point ROS as noted above, otherwise negative Physical Exam General: Alert, In no apparent distress, Oriented x3 HEENT: EOMI, Sclerae nonicteric Respiratory: Clear to auscultation bilaterally, Normal air movement Cardiovascular: Regular rate/rhythm, Edema (trace-1+ to knee on left) Gastrointestinal: Soft and benign, Non-distended, No tenderness Musculoskeletal: R BK vitals reviewed Problem list Nonhealing Left 5th toe, concerning for acute Osteomyelitis IDDM 2 HTN GERD R BKA nohealing wound, erythema of 5th toe, no active purulent drainage right now improving good 2+ DP pulse on left arterial doppler: distal monophasic flow continue empiric antibiotics - rocephin/vanc ID consulted General surgery consulted - Dr. Morales MRI ordered sliding scale insulin, confirm home meds antihypertensives as needed Code: full VTE: lovenox Dispo: home, home health with IV antibiotics if needed vs surgery Time Spent Managing Pts Care (In Minutes): 35
[2022-04-09] MEDS: VANCOMYCIN 1.25 GM in NA CHLORIDE 0.9% 250 ML IVPB SCH ×2 (01:28→12:09)
[2022-04-09 06:10] LABS: Hematocrit 26.1 % (39.6-49.0); MCV 97.1 fL (80-100); MPV 7.2 fL (7.6-11.3); RBC Red Blood Cell Count 2.69 M/uL (4.33-5.43)
[2022-04-09 06:25] LABS: C-Reactive Protein 5.96 mg/L (<3.00); Potassium 4.3 mmol/L (3.5-5.1)
[2022-04-09] MEDS: INSULIN -REGULAR HUMAN 50 UNIT/0.5 ML ML SQ SCH ×4 (07:30→21:29)
--- NOTE | 2022-04-09 08:46 | RAD REPORT ---
EXAM DESCRIPTION: MRI - Foot Left Wo Cont - 04/09/2022 8:16 am CLINICAL HISTORY: Leg pain and swelling COMPARISON: April 07, 2022 x-ray TECHNIQUE: Axial, sagittal and coronal magnetic resonance imaging left foot FINDINGS: Abnormal signal involves most of the fifth proximal phalanx. Abnormal signal involves port ions of fifth middle and distal phalanx. No fracture or dislocation noted. No soft tissue abscess seen IMPRESSION: Osteomyelitis involving the fifth proximal, middle and distal phalanx
[2022-04-09] MEDS: CEFTRIAXONE 1,000 MG in NA CHLORIDE 0.9% 50 ML IVPB SCH (09:15)
[2022-04-09] MEDS: ASPIRIN EC 81 MG TAB PO SCH (09:15)
[2022-04-09] MEDS: ENOXAPARIN 40 MG/0.4 ML SQ SCH (09:15)
[2022-04-09] MEDS: lisinopriL 20 MG TAB PO SCH (09:16)
--- NOTE | 2022-04-09 12:49 | CON ---
History Of Present Illness: The patient is a 62-year-old male with significant past medical history of diabetes mellitus. We were consulted for left fifth toe osteomyelitis and diabetic foot ulcer. T he patient has significant past medical history of longstanding diabetes mellitus with amputation of having right BKA secondary to diabetic foot ulcer and left index finger amputation secondary to diabe tic wound. The patient has been monitoring his sugars and blood pressure on a regular basis since th en. Recently developed a small wound to the left fifth toe because of his footwear. The patient den ies any discomfort at this time. Past Medical History: Diabetes mellitus, hypertension, gastroesophageal reflux disease, recent monie cystitis, and status post cholecystectomy in the beginning of this month. Social History: Alcohol positive. Former tobacco user. Family History: Noncontributory. Medications: Rocephin and vancomycin. See MAR for other medications. Allergies: INCLUDE METFORMIN AND PIOGLITAZONE. Review of Systems: A 10-point review was performed. Physical Examination: General: This is a 62-year-old male, sitting in bed, not in any acute cardiopulmonary distress. Vital Signs: Temperature 97, pulse 87, respirations 16, blood pressure 150/87. HEENT: Unremarkable. Neck: Supple. Lungs: Clear to auscultation. Heart: S1, S2. Regular. Abdomen: Soft, nontender. Bowel sounds present. Extremity: Left foot with fifth toe swelling and erythematous changes and small ulceration noted. Laboratory Data: Shows WBC 6.1, hemoglobin 8.9, platelets 216. Chemistry shows sodium 137, potassiu m 4.3, chloride 107, bicarb 27, BUN is 12, creatinine 0.8, glucose 119. MRI of the left foot; osteom yelitis involving the fifth proximal, middle and distal phalanx. Assessment And Plan: A 62-year-old male with longstanding history of diabetes mellitus, coming in wi th diabetic foot ulcer of the fifth toe and also osteomyelitis of left phalanx. Consider continuing antibiotic for 4 to 6 weeks with vancomycin and Rocephin pending culture results. Consider getting I V PICC line and Home Health service for the patient. If the patient is unable to take care at home, consider group home facility. We will manage diabetes mellitus and nutritional support. We jimmy l follow the patient closely. Thank you, Dr. Rader for consult. NF/MODL Voice ID: [id number] Report ID: [id number]
--- NOTE | 2022-04-09 16:34 | PN ---
Date of Progress Note: 04/09/2022 Reason For Service: Left fifth toe cellulitis and osteomyelitis. Subjective: The patient is doing well. No complaint. His drainage from the left toe is minimal now . Physical Examination: Chest: Clear. Abdomen: Soft and depressible. Extremities: Good capillary refill. Laboratory Data: MRI shows osteomyelitis involving the fifth proximal, middle and distal phalanx. Plan: I discussed with him different options from the surgical standpoint of amputation versus the l ute-term IV antibiotics that will be most likely managed by the Infectious Disease. He has been tryi ng to decide back and forward the best thing to do for himself. I respect any decision he makes. If he selects the amputation, we will be here to help understanding the benefits, alternatives, and ris ks, which include, but not limited to infection, bleeding, damage to adjacent structures, anesthesia complication, nonhealing wound, SD, and even . HM/MODL Voice ID: [id number] Report ID: [id number]
--- NOTE | 2022-04-09 23:15 | P.PN ---
Date of Service: 04/09/22 Subjective: no acute events overnight swelling improved, erythema improved ROS: 10 point ROS as noted above, otherwise negative Physical Exam General: Alert, In no apparent distress, Oriented x3 HEENT: EOMI, Sclerae nonicteric Respiratory: Clear to auscultation bilaterally, Normal air movement Cardiovascular: Regular rate/rhythm, Edema (trace) Gastrointestinal: Soft and benign, Non-distended, No tenderness Musculoskeletal: R BKA vitals reviewed Problem list Nonhealing Left 5th toe, +acute Osteomyelitis IDDM 2 HTN GERD R BKA nohealing wound, erythema of 5th toe, no active purulent drainage right now improving good 2+ DP pulse on left arterial doppler: distal monophasic flow continue empiric antibiotics - rocephin/vanc ID consulted for antibiotic recommendation MRI - +acute osteo of proximal-distal phalanx General surgery consulted - Dr. Morales - no surgery PICC ordered sliding scale insulin, confirm home meds antihypertensives as needed Code: full VTE: lovenox Dispo: home, home health with IV antibiotics pending picc placement; ID recommendation Time Spent Managing Pts Care (In Minutes): 35
[2022-04-10] MEDS: VANCOMYCIN 1.25 GM in NA CHLORIDE 0.9% 250 ML IVPB SCH ×2 (00:50→17:23)
[2022-04-10 04:16] LABS: MCV 97.2 fL (80-100); MPV 6.8 fL (7.6-11.3); RBC Red Blood Cell Count 2.78 M/uL (4.33-5.43)
[2022-04-10 04:33] LABS: C-Reactive Protein 3.97 mg/L (<3.00); Magnesium 1.8 mg/dL (1.8-2.4); Potassium 3.9 mmol/L (3.5-5.1)
[2022-04-10] MEDS ORDERED: MAGNESIUM SULFATE 1 gm IVPB 1 GM/100 ML BAG IV ONE (04:39)
[2022-04-10] MEDS ORDERED: POTASSIUM CL SA 10 MEQ TAB PO ONE (09:00)
[2022-04-10] MEDS: lisinopriL 20 MG TAB PO SCH (09:02)
[2022-04-10] MEDS: ASPIRIN EC 81 MG TAB PO SCH (09:02)
[2022-04-10] MEDS: ENOXAPARIN 40 MG/0.4 ML SQ SCH (09:03)
[2022-04-10] MEDS: CEFTRIAXONE 1,000 MG in NA CHLORIDE 0.9% 50 ML IVPB SCH (09:04)
[2022-04-10] MEDS: INSULIN -REGULAR HUMAN 50 UNIT/0.5 ML ML SQ SCH ×4 (09:04→22:15)
--- NOTE | 2022-04-10 13:37 | RAD REPORT ---
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 COMPARISON: No relevant prior studies available. FINDINGS: Lungs: Unremarkable. No consolidation. Pleural space: Unremarkable. No pneumothorax. Heart: Unremarkable. Mediastinum: Unremarkable. Bones/joints: Unremarkable. Tubes, lines and devices: Left PICC line tip in the SVC. IMPRESSION: No acute findings in the chest. Electronically signed by: Toan Hodge MD 04/10/2022 2:52 AM CDT Due to temporary technical issues with the PACS/Fluency reporting system, reports are being signed by the in house radiologists without review as a courtesy to insure prompt reporting. The interpreting radiologist is fully responsible for the content of the report.
--- NOTE | 2022-04-10 18:12 | P.PN ---
Subjective Date of Service: 04/10/22 Chief Complaint: osteomyelitis Patient has no new complaint. No fever. Physical Examination - Vital Signs Temperature: 97.7 F Blood Pressure: 131/72 Pulse: 71 Respirations: 16 Pulse Ox (%): 100 Assessment And Plan - Plan Physical Exam General: NAD Respiratory: Clear to auscultation bilaterally, Normal air movement Cardiovascular: Regular rate/rhythm, Edema (trace) Gastrointestinal: Soft and benign, Non-distended, No tenderness Musculoskeletal: R BKA vitals reviewed Problem list Nonhealing Left 5th toe, acute Osteomyelitis IDDM 2 HTN GERD R BKA Plan Aarterial doppler: distal monophasic flow continue empiric antibiotics - rocephin/vanc ID consulted for antibiotic recommendation MRI - +acute osteo of proximal-distal phalanx Seen by General surgery- Dr. Morales - no surgery. Patient would like a trial of 1 month of antibiotics and to consider toe amputation if no improvement PICC placed for outpatient IV antibiotics. Patient slated for 6 weeks of IV vancomycin. 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 sliding scale insulin. antihypertensives as needed Code: full VTE: lovenox Dispo: home, home health with IV antibiotics Time Spent Managing Pts Care (In Minutes): 27
--- NOTE | 2022-04-11 01:55 | PN ---
Subjective: Patient lying in bed. No new acute event. Chart reviewed. Objective: VITAL SIGNS: Temperature 98.1, pulse 68, respirations 17, blood pressure 160/80. Lungs: Basal crackles. Heart: S1, S2. Regular. Abdomen: Soft, nontender. Bowel sounds present. Extremities: No edema. Laboratory Data: Shows sodium 140, potassium 3.9, chloride 107, bicarb 28, BUN 8.9, glucose 140. WBC 5.5, hemoglobin 9.3, platelets 303. Assessment And Plan: Diabetic foot ulcer with osteomyelitis of the left phalanx. Continue antibiotic for 6 weeks. Patient currently on vanc or Rocephin. PICC line in place. Diabetic neuropathy, anemia of chronic disease. Monitor for signs of infection. Patient awaiting Home Health Services to begin. We will follow the patient as needed. CALVIN/MODL Voice ID: [id number] Report ID: [id number] VIDYA
[2022-04-11] MEDS: INSULIN -REGULAR HUMAN 50 UNIT/0.5 ML ML SQ SCH ×4 (07:30→21:41)
[2022-04-11] MEDS: CEFTRIAXONE 1,000 MG in NA CHLORIDE 0.9% 50 ML IVPB SCH (08:38)
[2022-04-11] MEDS: lisinopriL 20 MG TAB PO SCH (08:39)
[2022-04-11] MEDS: ASPIRIN EC 81 MG TAB PO SCH (08:39)
[2022-04-11] MEDS: ENOXAPARIN 40 MG/0.4 ML SQ SCH (08:39)
[2022-04-11] MEDS: VANCOMYCIN 1.25 GM in NA CHLORIDE 0.9% 250 ML IVPB SCH (14:10)
--- NOTE | 2022-04-11 15:47 | P.PN ---
Subjective Date of Service: 04/11/22 Chief Complaint: osteomyelitis Patient has no new complaint. Physical Examination - Vital Signs Temperature: 97.6 F Blood Pressure: 159/96 Pulse: 89 Respirations: 17 Pulse Ox (%): 100 Assessment And Plan - Plan Physical Exam General: NAD Respiratory: Clear to auscultation bilaterally, Normal air movement Cardiovascular: Regular rate/rhythm, Edema (trace) Gastrointestinal: Soft and benign, Non-distended, No tenderness Musculoskeletal: R BKA vitals reviewed Problem list Nonhealing Left 5th toe, acute Osteomyelitis IDDM 2 HTN GERD R BKA Plan Aarterial doppler: distal monophasic flow continue empiric antibiotics - rocephin/vanc ID consulted for antibiotic recommendation. MRI - +acute osteo of proximal-distal phalanx Seen by General surgery- Dr. Morales - no surgery. Patient would like a trial of 1 month of antibiotics and to consider toe amputation if no improvement PICC placed for outpatient IV antibiotics. Patient slated for 6 weeks of IV vancomycin. 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 Patient is also considering amputation if he cannot afford 6 weeks of antibiotics. sliding scale insulin. antihypertensives as needed Code: full VTE: lovenox Dispo: home, home health with IV antibiotics Time Spent Managing Pts Care (In Minutes): 28
--- NOTE | 2022-04-11 17:32 | P.DS ---
Admission Date: 04/07/22 Discharge Date: 04/12/22 Disposition: SD HOME/HOME HEALTH CARE Discharge Condition: FAIR Reason for Admission: osteomyelitis Brief History of Present Illness: 62yo M, PMH: IDDM2, HTN, GERD, recent cholecystitis s/p lap monie Presents to ED due to worsening of nonhealing wound of left 5th toe. He first noticed the wound ~3 months ago. He was seen by a manager creative and placing ointment on the wound. It improved slightly, and then worsened. He was recently hospitalized ~2 weeks ago for cholecystitis and underwent lap choleycstectomy. He has noticed slight redness and swelling of the left lateral foot. No fever/chills, no nausea/vomiting. He is not tried anything for it besides ointment. x-ray of foot in ED noted findings concerning for osteomyelitis Hospital Course: Diagnosis Nonhealing Left 5th toe, acute Osteomyelitis IDDM 2 HTN GERD R BKA Hospital Course Patient admitted to the medical floor and started on IV Rocephin and vancomycin Arterial doppler done showed distal monophasic flow Infectious disease was consulted who assisted with MRI demonstrated acute osteo of proximal-distal phalanx Seen by General surgery- Dr. Morales -who recommended no surgery a 1 month trial of antibiotics and to consider toe amputation if no improvement PICC was placed for outpatient IV antibiotics. Patient slated for 6 weeks of IV vancomycin. IV vancomycin via home health has been arranged. He will need vancomycin level checked 2 times a week, and BMP level also monitored. He is also prescribed Levaquin and probiotic. Clinically stable for discharge. Vital Signs/Physical Exam: Temp Pulse Resp BP Pulse Ox 98.1 F 73 16 129/81 100 04/11/22 16:00 04/11/22 16:00 04/11/22 16:00 04/11/22 16:00 04/11/22 16:00 General: Alert, In no apparent distress, Oriented x3 HEENT: Mucous membr. moist/pink Neck: JVD not distended Respiratory: Clear to auscultation bilaterally, Normal air movement Cardiovascular: No edema, Regular rate/rhythm, Normal S1 S2 Gastrointestinal: Soft and benign, Non-distended, No tenderness Musculoskeletal: No swelling Integumentary: No cyanosis Neurological: Normal strength at 5/5 x4 extr Laboratory Data at Discharge: WBC 5.50 K/uL (4.3-10.9) 04/10/22 03:57 Hgb 9.3 g/dL (13.6-17.9) L 04/10/22 03:57 Hct 27.0 % (39.6-49.0) L 04/10/22 03:57 Plt Count 303 K/uL (152-406) D 04/10/22 03:57 Sodium 140 mmol/L (136-145) 04/10/22 03:57 Potassium 3.9 mmol/L (3.5-5.1) 04/10/22 03:57 BUN 12 mg/dL (7-18) 04/10/22 03:57 Creatinine 0.92 mg/dL (0.55-1.3) 04/10/22 03:57 Glucose 141 mg/dL (74-106) H 04/10/22 03:57 Magnesium 1.8 mg/dL (1.8-2.4) 04/10/22 03:57 Total Bilirubin 0.6 mg/dL (0.2-1.0) 04/08/22 05:54 AST 17 U/L (15-37) 04/08/22 05:54 ALT 18 U/L (12-78) 04/08/22 05:54 Alkaline Phosphatase 92 U/L (45-117) 04/08/22 05:54 Home Medications: Multivit-Mins/Iron/Folic/Lycop [Centrum Ultra Men's Tablet] 1 tab PO DAILY 08/17/16 Aspirin [Lo-Dose Aspirin EC] 1 tab PO DAILY 09/17/20 lisinopriL [Prinivil*] 40 mg PO DAILY 09/17/20 Sodium,Potassium Phosphates [Zsaduvllcy-Takjmr-Fqqeytobk] 1 each PO BID #4 packet 03/30/22 Insulin NPH Hum/Reg Insulin Hm [Novolin 70-30 100 Unit/ml Vial] 15 units SQ ACHS 04/07/22 L. Acidophilus/L.bulgaricus [Lactobacillus Tablet] 1 each PO BID #60 tab 04/11/22 levoFLOXacin [Levaquin] 750 mg PO DAILY #28 tab 04/11/22 New Medications: L. Acidophilus/L.bulgaricus [Lactobacillus Tablet] 1 each PO BID #60 tab levoFLOXacin [Levaquin] 750 mg PO DAILY #28 tab Diet: ADA Activity: Ad nadine Followup: Omega Horan DO [Primary Care Provider] - 1-2 Weeks (call to schedule appointment) Time spent managing pt's care (in minutes): 38
--- NOTE | 2022-04-11 22:46 | PN ---
Date of Progress Note: 04/11/2022 Diagnosis: Osteomyelitis, left fifth toe. This is a case of a 62-year-old patient with osteomyelitis of left foot fifth toe. We discussed the MRI with the person. The plan on him was to do intravenous antibiotics, even though he was explained the options of amputation. Today in the hospital, I explained to him how his antibiotics will work, but then he got upset when they told him the financial part of it and then he told the primary docto avni to call me right away because he wants to remove that toe. I went to the floor and explained to nhan albrecht the pros and cons of his decision and once again he changes mind. He wants to try IV antibiotics f irst, which I believe is the right decision in his case. We have no necrosis, no gangrene of that to e. I believe IV antibiotics might save him from surgery at least temporary. He understands he has p eripheral vascular disease and even though if he remove that toe, it does not guarantee that he is go ing to be free of antibiotics or even free of further more proximal amputation, so he has to be caref ul with that decision just because he does not want to invest in high-dose IV antibiotics. At the [facility] time, he does not see any progress so he changed his mind. I will be here to help any time he wan ts to. In the meantime, he asked me right now to call his primary doctor because he changed his mind and he just was upset about the financial part, but he want to proceed with IV antibiotics. SHANDRA/TEE Voice ID: [id number] Report ID: [id number]
--- NOTE | 2022-04-12 07:53 | PN ---
Subjective: Patient lying in bed. No new acute event. Chart reviewed. Denies any chest pain, abdo nikole pain, constipation, or diarrhea. Objective: Vital Signs: Temperature 98, pulse 73, respirations 16, blood pressure 129/81. Lungs: Basal crackles. Heart: S1, S2. Regular. Abdomen: Soft, nontender. Bowel sounds present. Extremities: No edema. Laboratory Data: Shows WBC 5.5, hemoglobin 9.3, platelets 303. Chemistry shows sodium 140, potassiu m 3.9, chloride 107, bicarb 28, BUN 12, creatinine 0.9, glucose 141. Blood cultures, no growth. Current Medications: Include Rocephin and vancomycin. Assessment And Plan: Osteomyelitis of left 5th phalanx with diabetic foot ulcer and the patient with diabetic neuropathy; anemia of chronic disease. Continue to monitor for signs of infection with WBC and fever trends. We will follow the patient closely. NF/MODL Voice ID: [id number] Report ID: [id number]
[2022-04-12] MEDS: INSULIN -REGULAR HUMAN 50 UNIT/0.5 ML ML SQ SCH (08:13)
[2022-04-12] MEDS: CEFTRIAXONE 1,000 MG in NA CHLORIDE 0.9% 50 ML IVPB SCH (08:16)
[2022-04-12] MEDS: ASPIRIN EC 81 MG TAB PO SCH (08:17)
[2022-04-12] MEDS: ENOXAPARIN 40 MG/0.4 ML SQ SCH (08:18)
[2022-04-12] MEDS: lisinopriL 20 MG TAB PO SCH (08:18)
[2022-04-12] MEDS: VANCOMYCIN 1.25 GM in NA CHLORIDE 0.9% 250 ML IVPB SCH (08:38)
[2022-04-12 08:57] VITALS: BP 141/78; TEMP 97.6
[2022-04-12 10:05] VITALS: O2SAT 94
== END 2022-04-12 09:35 | disposition home health service (06) | DRG 638 ==
LOC: ER 09:34 → ERHOLD 13:15 → 4TH 16:25
PROVIDERS: ADMIT Hospitalist; ATTEND Internal Medicine
PROC: 02HV33Z Insertion of Infusion Device into Superior Vena Cava, Percutaneous Approach (ICD-10-PCS; principal; 2022-04-10)
DX: E11.69 Type 2 diabetes mellitus with other specified complication (principal); M86.172 Other acute osteomyelitis, left ankle and foot; E11.51 Type 2 diabetes mellitus with diabetic peripheral angiopathy without gangrene; E11.40 Type 2 diabetes mellitus with diabetic neuropathy, unspecified; E11.621 Type 2 diabetes mellitus with foot ulcer; L97.529 Non-pressure chronic ulcer of other part of left foot with unspecified severity; D63.8 Anemia in other chronic diseases classified elsewhere; K21.9 Gastro-esophageal reflux disease without esophagitis; E78.5 Hyperlipidemia, unspecified; I10 Essential (primary) hypertension; Z79.4 Long term (current) use of insulin; Z88.8 Allergy status to other drugs, medicaments and biological substances; Z79.82 Long term (current) use of aspirin; Z90.49 Acquired absence of other specified parts of digestive tract; Z89.511 Acquired absence of right leg below knee; Z79.899 Other long term (current) drug therapy; Z89.421 Acquired absence of other right toe(s); Z87.891 Personal history of nicotine dependence; Z20.822 Contact with and (suspected) exposure to COVID-19
CPT/HCPCS: 36415; 36569; 71045; 80048; 80053; 80202; 81001; 82947; 83735; 85025; 85027; 86140; 87040; 87811; 93926; 93971; 94760; 96365; 96366; 96367; 99285; J0696; J1650; J1815; J3370; J3475; J7040; J7050

== ENCOUNTER 2022-04-17 09:32 | Inpatient (IN) | payer OTHER ==
--- OUTSIDE RECORDS SUMMARY | 2022-04-17 09:37 | XMS REPORT | Continuity of Care Document ---
:1960 Author Organization [facility] t Address [address] [place] [address] Care Team Providers Name Role Phone Omega Horan Attending Clinician Unavailable Emiliano Montano Attending Clinician Unavailable Payers Payer Name Policy Type Policy Number Effective Date Expiration Date S [place] [id number] [id number] 2020 Common Spiri t 00:00:00 [place] [id number] 2020 Common Spiri t 00:00:00 [place] [id number] 2020 Common Spiri t 00:00:00 [place] [id number] 2020 Common Spiri t 00:00:00 [facility] Problems Condition Condition Condition Status Onset Resolution Last Treating Co mments Source Name Details Category Date Date Treatment Clinician Date [id number] Vitreous Problem [place] [address] hemorrhage Spirit , left eye - [facility] [id number] Ocular Problem Common hypertensi Spirit on, left - [facility] eye [facility] [id number] [place] Problem Com mon lithiasis Spirit with acute - [facility] cholecysti [facility] [id number] Status Problem Common post [id number] Gast[facility]/ Problem Co mmon duodenitis [facility] [id number] Benign Problem Common essential Spirit HTN [facility] [id number] Type 2 Problem Common diabetes Spirit mellitus - [facility] with [facility] [id number] Amputation Problem Co mmon of left Spirit index - [facility]I finger [facility] [id number] GERD Problem Common without Spirit esophagiti - [facility] s [facility] [id number] Mixed Problem Common hyperlipid [facility] emia [facility] [id number] snf Problem Com mon (current) Spirit use of [facility] insulin [facility] [id number] Diabetic Problem Comm on polyneurop Spirit athy - [facility] associated St with [place] [address] diabetes Medica l mellitus [place] [id number] Primary Problem Comm on osteoarthr Spirit itis of [facility] left knee [facility] [id number] Chronic Problem Commo n hepatitis [facility] C without - CHI hepatic [facility] Amputated Right Problem Common below knee below-knee Sp angeline amputee [facility] Allergies, Adverse Reactions, Alerts Allergy Allergy Status Severity Reaction(s) Onset Inactive Treating Comm ents Source Name Type Date Date Clinician sitaglip sitaglip Active Unknown Commo n tin tin [facility] metformi metformi Active Unknown Commo n n n [facility] pioglita pioglita Active Unknown Commo n zone zone [facility] Social History Social Habit Start Date Stop Date Quantity Comments Source History of Tobacco Use Co mmon [facility] Sex Assigned At Com mon [facility] Smoking Status Start Date Stop Date Source Never Smoker Common [facility] Medications Ordered Filled Start Stop Current Ordering Indication Dosage Frequency Signature Comments Components Source Medication Medication Date Date Medication? Clinician (SIG) Name Name Bupivicaine Bupivicaine 2020-06 No 2.5mg Common [place] 2-13 Spirit 00:00: [facility] Kenalog Kenalog 2020-06 No 40mg Common (Triamcinol (Triamcinol 2-13 S pirit one) one) 00:00: - [facility] Bupivicaine Bupivicaine 2020-06 No 2.5mg Common [place] 2-13 Spirit 00:00: - [facility] 00 [facility] Amairani Patelalog 2020-06 No 40mg Common (Triamcinol (Triamcinol 2-13 S pirit one) one) 00:00: - [facility]I 00 [facility] Bupivicaine Bupivicaine 2020-06 No 2.5mg Common [place] 2-13 Spirit 00:00: - [facility] 00 [facility] Amairani Patelalog 2020-06 No 40mg Common (Triamcinol (Triamcinol 2-13 S pirit one) one) 00:00: - [facility]I 00 [facility] Bupivicaine Bupivicaine 2020-06 No 2.5mg Common [place] 2-13 Spirit 00:00: - [facility] 00 [facility] Amairani Bales 2020-06 No 40mg Common (Triamcinol (Triamcinol 2-13 S pirit one) one) 00:00: - [facility]I 00 [facility] Bupivicaine Bupivicaine 2020-06 No 2.5mg Common [place] 2-13 Spirit 00:00: - [facility] 00 [facility] Amairani Bales 2020-06 No 40mg Common (Triamcinol (Triamcinol 2-13 S pirit one) one) 00:00: - [facility]I 00 [facility] Bupivicaine Bupivicaine 2020-06 No 2.5mg Common [place] 2-13 Spirit 00:00: - [facility]I 00 [facility] Amairani Patelalog 2020-06 No 40mg Common (Triamcinol (Triamcinol 2-13 S pirit one) one) 00:00: - [facility]I 00 [facility] Bupivicaine Bupivicaine 2020-06 No 2.5mg Common [place] 2-13 Spirit 00:00: - [facility] 00 [facility] Amairani Kenalog 2020-06 No 40mg Common (Triamcinol (Triamcinol 2-13 S pirit one) one) 00:00: - [facility] 00 [facility] Bupivicaine Bupivicaine 2020-06 No 2.5mg Common [place] 2-13 Spirit 00:00: - [facility] 00 [facility] Kenalog Kenalog 2020-06 No 40mg Common (Triamcinol (Triamcinol 2-13 S pirit one) one) 00:00: - [facility] 00 [facility] Bupivicaine Bupivicaine 2020-06 No 2.5mg Common [place] 2-13 Spirit 00:00: - [facility]I 00 [facility] Kenalog Kenalog 2020-06 No 40mg Common (Triamcinol (Triamcinol 2-13 S pirit one) one) 00:00: - [facility]I 00 [facility] Bupivicaine Bupivicaine 2020-06 No 2.5mg Common [place] 2-13 Spirit 00:00: - [facility]I 00 [facility] Amairani Kenalog 2020-06 No 40mg Common (Triamcinol (Triamcinol 2-13 S pirit one) one) 00:00: - [facility]I 00 [facility] Bupivicaine Bupivicaine 2020-06 No 2.5mg Common [place] 2-13 Spirit 00:00: - [facility]I 00 [facility] Amairani Kenalog 2020-06 No 40mg Common (Triamcinol (Triamcinol 2-13 S pirit one) one) 00:00: - [facility]I 00 [facility] Bupivicaine Bupivicaine 2020-06 No 2.5mg Common [place] 2-13 Spirit 00:00: - [facility]I 00 [facility] Kenalog Kenalog 2020-06 No 40mg Common (Triamcinol (Triamcinol 2-13 S pirit one) one) 00:00: - [facility]I 00 [facility] Bupivicaine Bupivicaine 2020-06 No 2.5mg Common [place] 2-13 Spirit 00:00: - [facility]I 00 [facility] Kenalog Kenalog 2020-06 No 40mg Common (Triamcinol (Triamcinol 2-13 S pirit one) one) 00:00: - [facility]I 00 [facility] Bupivicaine Bupivicaine 2020-06 No 2.5mg Common [place] 2-13 Spirit 00:00: - [facility]I 00 [facility] Kenalog Kenalog 2020-06 No 40mg Common (Triamcinol (Triamcinol 2-13 S pirit one) one) 00:00: - [facility]I 00 [facility] Bupivicaine Bupivicaine 2020-06 No 2.5mg Common [place] 2-13 Spirit 00:00: - [facility]I 00 [facility] Kenchiquita Bales 2020-06 No 40mg Common (Triamcinol (Triamcinol 2-13 S pirit one) one) 00:00: - [facility]I 00 [facility] traMADol traMADol 2020-06- No 1{table QD [...] No OneTouch Delica Plus Delica Plus Delica Symsgs22T - Mrliuq71U - Plus Ehdeps76L - Aspirin 81 Aspirin 81 No 1{table [...] No OneTouch Delica Plus Delica Plus Delica Dmywyr51J - Uainfs56O - Plus Joqjkc41H - Aspirin 81 Aspirin 81 No 1{table [...] No OneTouch Delica Plus Delica Plus Delica Drtozx95L - Nalqir92R - Plus Dqzqhq75L - NovoLIN NovoLIN No BID NovoLIN 70/30 [...] No OneTouch Delica Plus Delica Plus Delica Kloccv22R - Ebssjd45S - Plus Pxntqf72U - NovoLIN NovoLIN No BID NovoLIN 70/30 [...] No OneTouch Delica Plus Delica Plus Delica Xranor73O - Imeics91S - Plus Eyuzrp57J - Aspirin 81 Aspirin 81 No 1{table [...] No OneTouch Delica Plus Delica Plus Delica Alprfp60Q - Ddwfzo26L - Plus Bhhcjd60A - OneTouch OneTouch No OneTouch Verio Flex [...] No OneTouch Delica Plus Delica Plus Delica Bexizw94D - Zezmeg37M - Plus Oihtzo28I - OneTouch OneTouch No OneTouch Verio Flex [...] No OneTouch Delica Plus Delica Plus Delica Ftwtcj57F - Soauzw00O - Plus Qexymi75D - OneTouch OneTouch No OneTouch Verio Flex Verio Flex Verio Flex System System System w/Device w/Device w/Device Lisinopril Lisinopril No 1{table QD Lisinopril 40 MG 40 MG t} 40 MG OneTouch OneTouch No OneTouch Delica Plus Delica Plus Delica Eyvwgs40Z - Sslcgs66A - Plus Mfwkbg24J - Centrum Centrum No Centrum Silver Silver [...] No OneTouch Delica Plus Delica Plus Delica Gjyltp36K - Vsfawf85C - Plus Yuadta76N - Centrum Centrum No Centrum Silver Silver [...] No OneTouch Delica Plus Delica Plus Delica Rkfbae16A - Xsktav78T - Plus Jtdzdp06K - OneTouch OneTouch No OneTouch Verio - [...] No OneTouch Delica Plus Delica Plus Delica Ognmzb97X - Iwsbpr93H - Plus Juismw23Z - OneTouch OneTouch No OneTouch Verio - [...] No OneTouch Delica Plus Delica Plus Delica Gucimq35X - Fjonwu83V - Plus Ywpure35Y - OneTouch OneTouch No OneTouch Verio - [...] No OneTouch Delica Plus Delica Plus Delica Krfnep46P - Xsrqpf91S - Plus Vfmfou78J - OneTouch OneTouch No OneTouch Verio - [...] No OneTouch Delica Plus Delica Plus Delica Qnockv55A - Odwdrk24B - Plus Giqgnc05W - Atorvastati Atorvastati No 1{table QD Atorvastat [...] No OneTouch Delica Plus Delica Plus Delica Wvfrtg88H - Chjzus73U - Plus Ephari89R - Atorvastati Atorvastati No 1{table QD Atorvastat [...] No OneTouch Delica Plus Delica Plus Delica Nfwwrd25A - Ronfcr42Z - Plus Uhysuj77V - Atorvastati Atorvastati No 1{table QD Atorvastat [...] No OneTouch Delica Plus Delica Plus Delica Jasrff00B - Dsyfbp91J - Plus Bvoeay36I - Atorvastati Atorvastati No 1{table QD Atorvastat [...] No OneTouch Delica Plus Delica Plus Delica Renrxe24G - Eevjyw18Y - Plus Hdwjxd82G - OneTouch OneTouch No OneTouch Verio - [...] No OneTouch Delica Plus Delica Plus Delica Roxfqa96X - Aehgtc66F - Plus Izwlpm97B - OneTouch OneTouch No OneTouch Verio - [...] No OneTouch Delica Plus Delica Plus Delica Pmiyxq20V - Qqftsr90C - Plus Idotfk20G - Vital Signs Vital Name Observation Time Observation Value Comments Source height 2022-04-06 10:00:00 66.5 [in_i] [facility] weight 2022-04-06 10:00:00 158.0 [lb_av] [facility] temperature 2022-04-06 10:00:00 97.3 [degF] [facility] bmi 2022-04-06 10:00:00 25.12 kg/m2 [facility] oximetry 2022-04-06 10:00:00 90 % [facility] respiratory rate 2022-04-06 10:00:00 16 /min Comm on [facility] blood pressure 2022-04-06 10:00:00 119 mm[Hg] [facility] - systolic [facility] blood pressure 2022-04-06 10:00:00 80 mm[Hg] [facility] - diastolic [facility] height 2022 09:30:00 66.5 [in_i] [facility] weight 2022 09:30:00 152 [lb_av] [facility] temperature 2022 09:30:00 98.0 [degF] [facility] bmi 2022 09:30:00 24.16 kg/m2 [facility] oximetry 2022 09:30:00 95 % [facility] respiratory rate 2022 09:30:00 16 /min Comm on [facility] blood pressure 2022 09:30:00 138 mm[Hg] Common [facility] - systolic [facility] blood pressure 2022 09:30:00 69 mm[Hg] Common [facility] - diastolic [facility] height 2022-01-08 13:30:00 66 [in_i] Common S pirit [facility] weight 2022-01-08 13:30:00 149.4 [lb_av] Common [facility] temperature 2022-01-08 13:30:00 98.1 [degF] Common [facility] bmi 2022-01-08 13:30:00 24.11 kg/m2 Common [facility] oximetry 2022-01-08 13:30:00 97 % Common [facility] respiratory rate 2022-01-08 13:30:00 17 /min Comm on [facility] blood pressure 2022-01-08 13:30:00 121 mm[Hg] Common [facility] - systolic [facility] blood pressure 2022-01-08 13:30:00 69 mm[Hg] Common [facility] - diastolic [facility] height 2021-12-07 09:20:00 66 [in_i] Common [facility] weight 2021-12-07 09:20:00 149.9 [lb_av] Common [facility] temperature 2021-12-07 09:20:00 98.4 [degF] [facility] bmi 2021-12-07 09:20:00 24.19 kg/m2 Common [facility] oximetry 2021-12-07 09:20:00 96 % Common [facility] respiratory rate 2021-12-07 09:20:00 17 /min Comm on [facility] blood pressure 2021-12-07 09:20:00 132 mm[Hg] Common [facility] - systolic [facility] blood pressure 2021-12-07 09:20:00 74 mm[Hg] Common Spirit - diastolic [facility] height 2021-08-07 10:30:00 66 [in_i] Common S pirit - [facility] weight 2021-08-07 10:30:00 157.2 [lb_av] Common [facility] temperature 2021-08-07 10:30:00 97.8 [degF] Common S pirit - [facility] bmi 2021-08-07 10:30:00 25.37 kg/m2 Common S pirit [facility] oximetry 2021-08-07 10:30:00 100 % Common S pirit [facility] respiratory rate 2021-08-07 10:30:00 18 /min Comm on [facility] blood pressure 2021-08-07 10:30:00 137 mm[Hg] Common Spirit - systolic [facility] blood pressure 2021-08-07 10:30:00 76 mm[Hg] Common Spirit - diastolic [facility] height 2021-05-12 10:50:00 66 [in_i] Common S pirit [facility] weight 2021-05-12 10:50:00 157.0 [lb_av] Common [facility] temperature 2021-05-12 10:50:00 98.1 [degF] Common S pirit [facility] bmi 2021-05-12 10:50:00 25.34 kg/m2 Common S pirit - [facility] oximetry 2021-05-12 10:50:00 100 % Common S pirit [facility] respiratory rate 2021-05-12 10:50:00 16 /min Comm on [facility] blood pressure 2021-05-12 10:50:00 132 mm[Hg] Common Spirit - systolic [facility] blood pressure 2021-05-12 10:50:00 72 mm[Hg] Common Spirit - diastolic [facility] height 2021-05-08 08:40:00 66 [in_i] [facility] weight 2021-05-08 08:40:00 157.0 [lb_av] [facility] temperature 2021-05-08 08:40:00 96.9 [degF] [facility] bmi 2021-05-08 08:40:00 25.34 kg/m2 [facility] oximetry 2021-05-08 08:40:00 99 % [facility] respiratory rate 2021-05-08 08:40:00 18 /min Comm on [facility] blood pressure 2021-05-08 08:40:00 122 mm[Hg] Common [facility] systolic [facility] blood pressure 2021-05-08 08:40:00 80 mm[Hg] [facility] diastolic [facility] Procedures This patient has no known procedures. Encounters Start End Encounter Admission Attending Care Care Encounter Source Date/Time Date/Time Type Type Clinicians Facility Department ID 2022-04-09 Outpatient Horan, STLMLC STLC [id number] Common 10:01:00 Omega [facility] 2022-04-06 Outpatient Horan, STLMLC STLC [id number] Common 08:30:03 Omega [facility] 2021-12-20 Outpatient Horan, STLMLC STLC [id number] Common 11:56:02 [facility] 2021-08-03 Outpatient Horan, STLMLC STLC [id number] Common 17:19:01 Omega [facility] 2021-07-25 Outpatient Horan, STLMLC STLMLC [id number] Common 10:00:03 Omega [facility] 2021-07-19 Outpatient Horan, STLMLC STLC [id number] Common 14:16:53 Omega [facility] 2021-07-19 Outpatient Horan, STLMLC STLC [id number] Common 14:15:44 Omega [facility] 2021-07-19 Outpatient Horan, STLMLC STLMLC Common 14:15:19 Omega [id number] [facility] 2021-07-19 Outpatient Horan, STLMLC STLMLC Common 14:14:02 Omega [id number] [facility] 2021-07-19 Outpatient Horan, STLMLC STLMLC Common 14:13:04 Omega [id number] [facility] 2021-07-19 Outpatient Horan, STLMLC STLMLC [id number] Common 14:12:27 Omega [id number] [facility] 2021-07-19 Outpatient Horan, STLMLC STLMLC Common 14:07:06 Omega [id number] [facility] 2021-07-19 Outpatient Horan, STLMLC STLMLC Common 13:39:58 Omega [id number] [facility] 2021-07-19 Outpatient Horan, STLMLC STLMLC Common 13:04:23 [facility] [id number] [facility] 2021-07-19 Outpatient Horan, STLMLC STLMLC Common 12:31:34 [facility] [id number] [facility] 2021-07-19 Outpatient Horan, STLMLC STLMLC Common 12:30:18 [facility] [id number] [facility] 2021-07-19 Outpatient Horan, STLMLC STLMLC Common 12:24:12 [facility] [id number] [facility] 2021-07-19 Outpatient zzzKovacev, STLMLC STLMLC [id number] Common 12:22:51 [place] [id number] [facility] 2022-04-11 2022-04-11 (TEL) STLMLC STLC [id number] Co mmon 00:00:00 00:00:00 [facility] 2022-04-06 2022-04-06 (HOSP F/U) STLMLC STLMLC [id number] Common 00:00:00 00:00:00 Hospital Spiri t Follow Up [facility] 2022-04-06 2022-04-06 (TEL) STLMLC STLMLC [id number] Co mmon 00:00:00 00:00:00 [facility] 2022-04-05 2022-04-05 (TEL) STLMLC STLMLC [id number] Co mmon 00:00:00 00:00:00 [facility] 2022-04-02 2022-04-02 (TEL) STLMLC STLMLC [id number] Co mmon 00:00:00 00:00:00 [facility] 2022-04-02 2022-04-02 (TEL) STLMLC STLMLC [id number] Co mmon 00:00:00 00:00:00 [facility] 2022-03-06 2022-03-06 (TEL) STLMLC STLMLC [id number] Co mmon 00:00:00 00:00:00 [facility] 2022 2022 (WELLNESS) STLMLC STLMLC [id number] Common 00:00:00 00:00:00 Wellness Spiri t Visit [facility] 2022-01-08 2022-01-08 OFFICE STLMLC STLMLC [id number] Co mmon 00:00:00 00:00:00 VISIT EST Spir it PT LEVEL 3 - [facility] 2022-01-08 2022-01-08 (TEL) STLMLC STLMLC [id number] Co mmon 00:00:00 00:00:00 [facility] 2021-12-20 2021-12-20 (TEL) STLMLC STLMLC [id number] Co mmon 00:00:00 00:00:00 [facility] 2021-12-07 2021-12-07 OFFICE STLMLC STLMLC [id number] Co mmon 00:00:00 00:00:00 VISIT EST Spir it PT LEVEL 3 [facility] 2021-12-04 2021-12-04 (TEL) STLMLC STLMLC [id number] Co mmon 00:00:00 00:00:00 [facility] 2021-08-07 2021-08-07 OFFICE STLMLC STLMLC [id number] Co mmon 00:00:00 00:00:00 VISIT [facility] ESTAB PT - CHI LEVEL 4 [facility] 2021-08-02 2021-08-02 (TEL) STLMLC STLMLC [id number] Co mmon 00:00:00 00:00:00 [facility] 2021-05-12 2021-05-12 OFFICE STLMLC STLMLC [id number] Co mmon 00:00:00 00:00:00 VISIT [facility] PT - CHI LEVEL 4 [facility] 2021-05-08 2021-05-08 (TEL) STLMLC STLMLC [id number] Co mmon 00:00:00 00:00:00 [facility] 2021-05-08 2021-05-08 OFFICE STLMLC STLMLC [id number] Co mmon 00:00:00 00:00:00 VISIT EST Spir it PT LEVEL 3 [facility] 2021-05-05 2021-05-05 (TEL) STLMLC STLMLC [id number] Co mmon 00:00:00 00:00:00 [facility] 2021-03-17 2021-03-17 Outpatient STLMLC STLMLC [id number] Common 00:00:00 00:00:00 [facility] 2021-03-14 2021-03-14 Outpatient STLMLC STLMLC [id number] Common 00:00:00 00:00:00 [facility] 2021-03-02 2021-03-02 Outpatient STLMLC STLMLC [id number] Common 00:00:00 00:00:00 [facility] 2021-02-09 2021-02-09 Outpatient STLMLC STLMLC [id number] Common 00:00:00 00:00:00 [facility] 2020-11-10 2020-11-10 Outpatient STLMLC STLMLC [id number] Common 00:00:00 00:00:00 [facility] 2020-08-13 2020-08-13 Outpatient STLMLC STLMLC [id number] Common 00:00:00 00:00:00 [facility] 2020-07-19 2020-07-19 Outpatient STLMLC STLMLC [id number] Common 00:00:00 00:00:00 [facility] 2020-07-12 2020-07-12 Outpatient STLMLC STLMLC [id number] Common 00:00:00 00:00:00 [facility] 2020-07-12 2020-07-12 Outpatient STLMLC STLMLC [id number] Common 00:00:00 00:00:00 [facility] Results This patient has no known results.
--- NOTE | 2022-04-17 10:07 | RAD REPORT ---
EXAM DESCRIPTION: RAD - Foot Left 3 View - 04/17/2022 10:00 am CLINICAL HISTORY: r/o osteomyelitis COMPARISON: Foot Left 3 View dated 04/07/2022 FINDINGS: Fracture with bone destruction in the distal fifth proximal phalanx is again noted. There may be subtle bone loss along the lateral cortex of the fifth middle phalanx. Osteomyelitis is most l ikely. Mild IP joint degenerative changes are present. Mild degenerative changes at the first MTP joint. No other areas of bone destruction seen. Arterial tree calcifications are present. No air or foreign body in the soft tissues. 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
[2022-04-17 11:04] LABS: Absolute Lymphocytes (CBC) 1.6 K/uL (0.7-4.9); Hematocrit 34.7 % (39.6-49.0); Lymphocytes % 27.1 % (15.3-44.8); MCV 98.6 fL (80-100); RBC Red Blood Cell Count 3.52 M/uL (4.33-5.43)
[2022-04-17 11:16] LABS: Potassium 4.3 mmol/L (3.5-5.1)
--- NOTE | 2022-04-17 12:48 | EDPHYS ---
Physician Documentation [facility] Name: Noé Yang Jr Age: 62 yrs Sex: Male : 1960 Arrival Date: 04/17/2022 Time: 09:34 Bed 11 Private MD: [facility] ED Physician Teresa Horan HPI: 04/17 12:48 This 62 yrs old Male presents to ER via Ambulatory with complaints of Leg kb Swelling, Leg Pain. Historical: - Allergies: 09:54 Actos; kr3 09:54 Januvia; kr3 09:54 metformin; kr3 09:54 victoza; kr3 - Home Meds: 09:54 aspirin 81 mg Oral cap 1 cap once daily for Myocardial Infarction Prevention [Active]; kr3 atorvastatin 10 mg Oral tab 1 tab once daily for Hypercholesterolemia [Active]; lisinopril 20 mg Oral tab 1 tab once daily for Hypertension [Active]; Novolin N NPH U-100 Insulin Sub-Q after meals and before bedtime for Type 1 Diabetes Mellitus [Active]; - PMHx: 09:54 Diabetes - IDDM; Hepatitis; Hypertension; kr3 - PSHx: 09:54 Cholecystectomy; RIGHT BKA; kr3 - Immunization history:: Adult Immunizations not up to date. - Social history:: Smoking status: Patient denies any tobacco usage or history of. ROS: 12:41 Constitutional: Negative for fever, chills, and weight loss. kb 12:41 MS/extremity: Positive for erythema, pain, swelling, tenderness, of the left fifth toe. 12:41 All other systems are negative. Exam: 12:43 Constitutional: This is a well developed, well nourished patient who is awake, alert, kb and in no acute distress. Head/Face: Normocephalic, atraumatic. ENT: Moist Mucous membranes Cardiovascular: Regular rate and rhythm with a normal S1 and S2. No gallops, murmurs, or rubs. No pulse deficits. Respiratory: Respirations even and unlabored. No increased work of breathing. Talking in full sentences MS/ Extremity: Pulses equal, no cyanosis. Neurovascular intact. Full, normal range of motion. Neuro: Awake and alert, GCS 15, oriented to person, place, time, and situation. Moves all extremities. Normal gait. Psych: Awake, alert, with orientation to person, place and time. Behavior, mood, and affect are within normal limits. 12:43 Skin: open wound of right fifth toe with yellow discharge. . Vital Signs: 09:49 BP 153 / 85; Pulse 81; Resp 16; Temp 98.0; Pulse Ox 100% ; Weight 70.31 kg; Height 5 kr3 ft. 6 in. (167.64 cm); Pain 0/10; 11:39 BP 140 / 73; Pulse 67; Resp 16; Pulse Ox 99% on R/A; kr3 12:47 BP 135 / 74; Pulse 80; Resp 17; Pulse Ox 97% on R/A; kr3 13:45 BP 138 / 72; Pulse 72; Resp 18; Pulse Ox 98% on R/A; kr3 14:45 BP 136 / 72; Pulse 74; Resp 18; Pulse Ox 98% on R/A; kr3 15:53 BP 139 / 80; Pulse 70; Resp 18; Pulse Ox 98% on R/A; kr3 09:49 Body Mass Index 25.02 (70.31 kg, 167.64 cm) kr3 MDM: 09:41 Patient medically screened. kb 12:40 Data reviewed: vital signs, nurses notes. Data interpreted: Pulse oximetry: on room air kb is 99 %. Interpretation: normal. Counseling: I had a detailed discussion with the patient and/or guardian regarding: the historical points, exam findings, and any diagnostic results supporting the discharge/admit diagnosis, lab results, radiology results, the need for further work-up and treatment in the hospital. Physician consultation: Lewis Morales MD was contacted at 12:40, regarding patient's condition, need to come to ED to see patient, and will see patient in inpatient room. 04/17 09:46 Order name: CBC with Diff; Complete Time: 11:15 kb 04/17 09:46 Order name: Basic Metabolic Panel; Complete Time: 11:17 kb 04/17 09:46 Order name: Lactate; Complete Time: 11:58 kb 04/17 09:46 Order name: Blood Culture Adult (2) kb 04/17 09:46 Order name: Wound Culture kb 04/17 12:51 Order name: SARS RAPID; Complete Time: 13:38 kb 04/17 09:46 Order name: Foot Left 3 View XRAY; Complete Time: 10:34 kb 04/17 09:46 Order name: IV Start; Complete Time: 10:53 kb Administered Medications: No medications were administered Disposition Summary: 04/17/22 12:47 Hospitalization Ordered Hospitalization Status: Inpatient Admission kb Provider: Per Rader Location: Telemetry/MedSur (Inpatient) kb Condition: Stable kb Problem: new kb Symptoms: are unchanged kb Bed/Room Type: Standard Room Assignment: 232(04/17/22 17:00) dw Diagnosis - Osteomyelitis, unspecified kb Forms: - Medication Reconciliation Form kb - SBAR form kb Signatures: Dispatcher [employer] EDAnnie Gibson, CEO ZIFF DAVIS-C CEO ZIFF DAVIS-Zoe Flood RN RN dw Andree España RN RN kr3 Corrections: (The following items were deleted from the chart) 17:00 12:47 kb dw
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
[2022-04-17 13:29] LABS: SARS-CoV-2 Antigen Rapid Res Negative (Negative)
[2022-04-17 16:38] VITALS: BMI 25.0
[2022-04-17] MEDS ORDERED: GLUCAGON 1 MG/VIAL IM PRN (16:59)
[2022-04-17] MEDS ORDERED: ACETAMINOPHEN 325 MG TABLET PO PRN (17:02)
[2022-04-17] MEDS ORDERED: ONDANSETRON 4 MG/2 ML VIAL IV PRN (17:05)
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
[2022-04-17] MEDS ORDERED: D10W 250 ML BAG IV PRN (17:07)
[2022-04-17 19:50] LABS: Magnesium 1.8 mg/dL (1.8-2.4); Phosphorus 3.7 mg/dL (2.5-4.9)
[2022-04-17] MEDS: lisinopriL 20 MG TAB PO SCH (21:19)
[2022-04-17] MEDS: POTASS/SODIUM PHOSPHATE 1 PKT POWD.PACK PO SCH (21:20)
[2022-04-17] MEDS: LACTOBACILLUS/ACIDOPHILUS TAB PO SCH (21:20)
[2022-04-17] MEDS: INSULIN 70/30 100 UNITS/ML SQ SCH (21:23)
[2022-04-17] MEDS: INSULIN -REGULAR HUMAN 50 UNIT/0.5 ML ML SQ SCH (21:24)
[2022-04-17] MEDS: PIPER TAZO 3.375 GM in NA CHLORIDE 0.9% 100 ML IV SCH (21:26)
[2022-04-18] MEDS ORDERED: HYDRALAZINE HCL 20 MG/ML VIAL IV PRN (05:35)
[2022-04-18] MEDS ORDERED: SODIUM CHLORIDE 0.9% 10ML INJ IV PRN (05:35)
[2022-04-18 05:47] LABS: Absolute Lymphocytes (CBC) 1.4 K/uL (0.7-4.9); Hematocrit 29.1 % (39.6-49.0); Lymphocytes % 21.7 % (15.3-44.8); MCV 96.8 fL (80-100); MPV 6.7 fL (7.6-11.3)
[2022-04-18 06:09] LABS: Albumin 2.9 g/dL (3.4-5.0); Bilirubin Total 0.5 mg/dL (0.2-1.0); Potassium 3.7 mmol/L (3.5-5.1); Protein, Total 6.5 g/dL (6.4-8.2)
[2022-04-18] MEDS: INSULIN -REGULAR HUMAN 50 UNIT/0.5 ML ML SQ SCH ×4 (07:30→20:41)
[2022-04-18] MEDS: INSULIN 70/30 100 UNITS/ML SQ SCH ×4 (07:30→20:40)
[2022-04-18 07:32] LABS: Urine Bacteria <20 /HPF (<20); Urine Bilirubin NEGATIVE (Negative); Urine Blood Negative (Negative); Urine Clarity Clear (Clear); Urine Color Colorless (Yellow); Urine Glucose TRACE (Negative); Urine Protein 1+ (Negative); Urine RBC <5 /HPF (None Seen); Urine Urobilinogen Normal (Normal)
[2022-04-18] MEDS ORDERED: KCL 20 MEQ/100 mL IVPB 20 MEQ/100 ML BAG IV SCH (08:00)
[2022-04-18] MEDS: lisinopriL 20 MG TAB PO SCH ×2 (09:00→13:48)
[2022-04-18] MEDS: LACTOBACILLUS/ACIDOPHILUS TAB PO SCH ×2 (09:00→20:36)
[2022-04-18] MEDS ORDERED: LYCOP PO SCH (09:00)
[2022-04-18] MEDS: POTASS/SODIUM PHOSPHATE 1 PKT POWD.PACK PO SCH ×2 (09:00→20:36)
[2022-04-18] MEDS ORDERED: IRON PO SCH (09:00)
[2022-04-18] MEDS: MULTIVITAMIN TAB PO SCH (09:00)
[2022-04-18] MEDS ORDERED: FOLIC PO SCH (09:00)
[2022-04-18] MEDS ORDERED: MULTIVIT MINS PO SCH (09:00)
[2022-04-18] MEDS ORDERED: MIDAZOLAM HCL 2 MG/2 ML INJ ONE (11:45)
[2022-04-18] MEDS ORDERED: LIDOCAINE 2% MPF 5 ML VIAL ONE (11:45)
[2022-04-18] MEDS ORDERED: propofoL 200 MG/20 ML VIAL IV ONE (11:45)
[2022-04-18] MEDS: PIPER TAZO 3.375 GM in NA CHLORIDE 0.9% 100 ML IV SCH ×2 (11:46→20:42)
[2022-04-18] MEDS ORDERED: NA CHLORIDE 0.9% 1,000 ML ONE (11:58)
[2022-04-18] MEDS ORDERED: FENTANYL CITR 100 MCG/2 ML ONE (12:31)
--- NOTE | 2022-04-18 12:51 | CON ---
Date of Consultation: 04/18/2022 History Of Present Illness: Mr. Yang is known by us. A 62-year-old male with history of osteomy elitis of the left toe, ulceration and drainage. He was admitted not too long ago in the hospital. He was wanting the amputation of the fifth toe, then he changed his mind and decided he is going to t reat it with antibiotics, but recently he changed his mind again and this time he wants the amputatio n. He does not want to be treated for osteomyelitis with IV antibiotics. He has history of peripher al vascular disease, actually has an amputation of the opposite leg. He understands his decision. [place] is well convinced about it at this time. He wants that fifth toe removed, so [facility] and a surgical consult was obtained. Past Medical History: See my previous consult few days ago. Allergies: SEE MY PREVIOUS CONSULT FEW DAYS AGO. Past Surgical History: See my previous consult few days ago. Social Habits: See my previous consult few days ago. Review of Systems: No shortness of breath. No chest pain. No fever. Ten points otherwise unremarkable. Physical Examination: General: The patient is awake, alert. HEENT: Pupils are equal and reactive. Anicteric. Neck: Supple. Chest: Clear. Abdomen: Soft and depressible. Extremities: Left fifth toe shows an ulceration with changes consistent with cellulitis and that con firmed the evidence of osteomyelitis. There are some cyanotic changes present. Dorsalis pedis pulse in that foot is diminished. Diagnostic Data: X-ray today once again shows osteomyelitis of the left fifth toe. The MRI done abo ne a week ago also confirmed the findings of osteomyelitis of the left fifth toe. Assessment: Destructive osteomyelitis of the left fifth toe. The patient wants an amputation of the fifth toe with benefits, alternatives, and risks including, but not limited to infection, bleeding, damage to adjacent structures, nonhealing wound, WI, and even . He also understands this may no t relieve any symptoms. He might need more than one surgical intervention. He also understands the importance of following up with his vascular surgeons for possibility of the revascularization that w ill help not just to heal the wound, but also to deal with future infections or traumas in that area. He understands he may require wound care. He understands the importance also of controlling his arguello gar and his blood pressure. HM/MODL Voice ID: [id number] Report ID: [id number]
--- NOTE | 2022-04-18 12:54 | P.BOP ---
Preoperative diagnosis: destructive osteomyelitis left 5th toe Postoperative diagnosis: same Primary procedure: LEft 5th toe amputation Estimated blood loss: <10cc Specimen: toe Findings: as above Anesthesia: General Transferred to: Recovery Room Condition: Good
[2022-04-18] MEDS: PANTOPRAZOLE 40 MG INJ IVP SCH (13:48)
[2022-04-18] MEDS: HYDROCODONE/APAP 5/325 MG TAB PO PRN ×2 (13:49→20:36)
--- NOTE | 2022-04-18 13:56 | OP ---
Date of Procedure: 04/18/2022 Surgeon: Lewis Morales MD Preoperative Diagnosis: Destructive osteomyelitis, left fifth toe. Postoperative Diagnosis: Destructive osteomyelitis, left fifth toe. Procedure: Left fifth toe amputation. Estimated Blood Loss: Less than 10 cc. Specimen: Toe. Anesthesia: General plus local. Indication: This is the case of a 62-year-old patient, who comes to us with left fifth toe destructi ve osteomyelitis and cellulitis present, failure of outpatient treatment, failure also of IV antibiot ics and he wants the toe removed. Benefits, alternatives, and risks of toe amputation fully explaine d to the patient, which include, but not limited to infection, bleeding, damage to adjacent structure s, anesthesia complication, nonhealing wound, WA, and even . He also understands this may not r elieve any symptoms. He might need more than one surgical intervention. He understood, signed a con sent. The area of concern was marked by me and the patient in the holding room. Procedure In Detail: The patient was brought to the operating room, placed in supine position. Anes thesia was done without complication. The left foot was prepped and draped in the usual sterile fash ion. A time-out was called. Local anesthesia was applied followed by incision of the area of the ba se of the left fifth toe. We proceeded to find the metatarsophalangeal joints to remove the toe at t hat level. We have already evidence of destructive osteomyelitis present. Irrigation was done. The area of the metatarsal area was excoriated. Then, after that, we after irrigation proceeded to appr oximate some subcutaneous tissue with 3-0 chromic and the skin approximated with 3-0 nylon with packi ng and gauze in between. The patient tolerated the procedure well. The patient is on his way to recovery in stable condition. HM/MODL Voice ID: [id number] Report ID: [id number]
[2022-04-18] MEDS ORDERED: POTASSIUM CL SA 10 MEQ TAB PO ONE (16:00)
--- NOTE | 2022-04-18 17:37 | P.PN ---
Date of Service: 04/18/22 Subjective: no acute events overnight swelling improved, erythema improved NPO for surgery ROS: 10 point ROS as noted above, otherwise negative Physical Exam General: Alert, In no apparent distress, Oriented x3 HEENT: EOMI, Sclerae nonicteric Respiratory: Clear to auscultation bilaterally, Normal air movement Cardiovascular: Regular rate/rhythm, Edema (trace) on L foot Gastrointestinal: Soft and benign, Non-distended, No tenderness Musculoskeletal: R BKA vitals reviewed Problem list Nonhealing Left 5th toe, +acute Osteomyelitis IDDM 2 HTN GERD R BKA nohealing wound, mild erythema of 5th toe, failed outpatient therapy with IV antibiotics improving arterial doppler: distal monophasic flow continue empiric antibiotics ID consulted for antibiotic recommendation MRI during last admission - +acute osteo of proximal-distal phalanx xray in ED with bone changes on and 5th General surgery consulted - Dr. Morales - planned for OR today sliding scale insulin, confirm home meds antihypertensives as needed Code: full Dispo: home, ~1-2 days Time Spent Managing Pts Care (In Minutes): 35
[2022-04-18 22:17] VITALS: O2SAT 98
[2022-04-19 03:53] LABS: Hematocrit 28.4 % (39.6-49.0); MCV 97.5 fL (80-100); MPV 7.1 fL (7.6-11.3); RBC Red Blood Cell Count 2.91 M/uL (4.33-5.43)
[2022-04-19 04:02] LABS: Magnesium 1.9 mg/dL (1.8-2.4); Potassium 3.8 mmol/L (3.5-5.1)
[2022-04-19] MEDS ORDERED: POTASSIUM CL SA 10 MEQ TAB PO ONE (06:00)
[2022-04-19] MEDS: INSULIN -REGULAR HUMAN 50 UNIT/0.5 ML ML SQ SCH ×2 (07:30→11:26)
[2022-04-19] MEDS: INSULIN 70/30 100 UNITS/ML SQ SCH ×2 (07:30→11:29)
[2022-04-19] MEDS: PIPER TAZO 3.375 GM in NA CHLORIDE 0.9% 100 ML IV SCH (08:59)
[2022-04-19] MEDS: PANTOPRAZOLE 40 MG INJ IVP SCH (09:00)
[2022-04-19] MEDS: LACTOBACILLUS/ACIDOPHILUS TAB PO SCH (09:00)
[2022-04-19] MEDS: lisinopriL 20 MG TAB PO SCH (09:00)
[2022-04-19] MEDS: POTASS/SODIUM PHOSPHATE 1 PKT POWD.PACK PO SCH (09:00)
[2022-04-19] MEDS: MULTIVITAMIN TAB PO SCH (09:00)
[2022-04-19] MEDS: HYDROCODONE/APAP 5/325 MG TAB PO PRN (09:00)
[2022-04-19 12:39] VITALS: BP 158/82; TEMP 98
--- NOTE | 2022-04-19 20:01 | P.DS ---
Admission Date: 04/18/22 Discharge Date: 04/19/22 Disposition: ROUTINE DISCHARGE Discharge Condition: GOOD Reason for Admission: Left foot swelling\pain Brief History of Present Illness: 62-year-old male with a past medical history significant for [place], HLD, hypertension, DM 2, right BKA, GERD who presents with complaint of left foot swelling/pain. Patient was recently seen in the hospital due to worsening of non-healing wound on the left fifth toe. Patient was treated for osteomyelitis in the last admission. Patient reported that he noticed wound on the left fourth toe. Patient rated pain as 2/10 in severity and described pain as aching in quality. Patient denies any other signs or symptoms. Symptoms are aggravated or relieved by nothing. Hospital Course: Problem list Nonhealing Left 5th toe, +acute Osteomyelitis IDDM 2 HTN GERD R BKA Patient presented with worsening L foot swelling / redness after recent discharge home with PICC and IV antibiotics. There was an issue with inability to get home health to go to his home. General surgery was consulted and patient underwent amputation of his left 5th toe. He is deemed stable for discharge home, to complete 7 days of Augmentin as recommended by ID. Keep foot elevated. Do not get wet. Can take dressing off and place Bactroban or triple antibiotic ointment and dry gauze to keep clean. Follow up with Dr. Morales in his office on Saturday. Vital Signs/Physical Exam: Temp Pulse Resp BP Pulse Ox 98.0 F 81 18 158/82 H 99 04/19/22 12:00 04/19/22 12:00 04/19/22 12:00 04/19/22 12:00 04/19/22 12:00 Physical Exam General: Alert, In no apparent distress, Oriented x3 HEENT: EOMI, Sclerae nonicteric Respiratory: Clear to auscultation bilaterally, Normal air movement Cardiovascular: Regular rate/rhythm, no edema Gastrointestinal: Soft and benign, Non-distended, No tenderness Musculoskeletal: R BKA Integumentary: surgical dressing in place Laboratory Data at Discharge: WBC 6.90 K/uL (4.3-10.9) 04/19/22 03:16 Hgb 9.7 g/dL (13.6-17.9) L 04/19/22 03:16 Hct 28.4 % (39.6-49.0) L 04/19/22 03:16 Plt Count 257 K/uL (152-406) 04/19/22 03:16 Sodium 139 mmol/L (136-145) 04/19/22 03:16 Potassium 3.8 mmol/L (3.5-5.1) 04/19/22 03:16 BUN 17 mg/dL (7-18) 04/19/22 03:16 Creatinine 1.10 mg/dL (0.55-1.3) 04/19/22 03:16 Glucose 102 mg/dL (74-106) 04/19/22 03:16 Phosphorus 3.7 mg/dL (2.5-4.9) 04/17/22 18:55 Magnesium 1.9 mg/dL (1.8-2.4) 04/19/22 03:16 Total Bilirubin 0.5 mg/dL (0.2-1.0) 04/18/22 05:33 AST 13 U/L (15-37) L 04/18/22 05:33 ALT 24 U/L (12-78) 04/18/22 05:33 Alkaline Phosphatase 92 U/L (45-117) 04/18/22 05:33 Home Medications: Multivit-Mins/Iron/Folic/Lycop [Centrum Ultra Men's Tablet] 1 tab PO DAILY 08/17 Aspirin [Lo-Dose Aspirin EC] 1 tab PO DAILY 09/17/20 lisinopriL [Prinivil*] 40 mg PO DAILY 09/17/20 Insulin NPH Hum/Reg Insulin Hm [Novolin 70-30 100 Unit/ml Vial] 15 units SQ ACHS 04/07/22 L. Acidophilus/L.bulgaricus [Lactobacillus Tablet] 1 each PO BID #60 tab 04/11/22 Amox/Clavulanate [Augmentin 875-125 Tab] 875 mg PO BID 7 Days #14 tab 04/19/22 Hydrocodone 5/APAP 325 [[place] 5/325*] 1 tab PO Q8H PRN #10 tab 04/19/22 Mupirocin Oint [Bactroban 2% Ointment] 1 appl TOP DAILY 14 Days #1 tube 04/19/22 New Medications: Amox/Clavulanate [Augmentin 875-125 Tab] 875 mg PO BID 7 Days #14 tab Mupirocin Oint [Bactroban 2% Ointment] 1 appl TOP DAILY 14 Days #1 tube Hydrocodone 5/APAP 325 [[place] 5/325*] 1 tab PO Q8H PRN #10 tab PRN Reason: Pain Scale 5-7 (Moderate) Physician Discharge Instructions: PROBLEM: (list out Acute Problems for the Current visit) Osteomyelitis Left 5th Digit GOAL: Clear understanding of disease process INSTRUCTIONS: Patient presented with worsening L foot swelling / redness after recent discharge home with PICC and IV antibiotics. There was an issue with inability to get home health to go to his home. General surgery was consulted and patient underwent amputation of his left 5th toe. He is deemed stable for discharge home, to complete 7 days of Augmentin as recommended by ID. Keep foot elevated. Do not get wet. Can take dressing off and place Bactroban or triple antibiotic ointment and dry gauze to keep clean. Follow up with Dr. Morales in his office on Saturday. Diet: ADA Activity: as tolerated Follow up with a General Surgeon: ARAMIS LITTLE, [address] [phone] Followup: Omega Horan, DO [Primary Care Provider] - Time spent managing pt's care (in minutes): 45
== END 2022-04-19 13:39 | disposition home or self-care (01) | DRG 617 ==
LOC: ER 09:32 → ERHOLD 14:17 → 2ND 17:34 → OBSVTOIN 04-18 13:01
PROVIDERS: ADMIT Hospitalist; ATTEND Hospitalist
PROC: 0Y6Y0Z0 Detachment at Left 5th Toe, Complete, Open Approach (ICD-10-PCS; principal; 2022-04-18 13:30)
DX: E11.69 Type 2 diabetes mellitus with other specified complication (principal); M86.172 Other acute osteomyelitis, left ankle and foot; I10 Essential (primary) hypertension; K21.9 Gastro-esophageal reflux disease without esophagitis; E78.5 Hyperlipidemia, unspecified; D63.8 Anemia in other chronic diseases classified elsewhere; E11.51 Type 2 diabetes mellitus with diabetic peripheral angiopathy without gangrene; I25.2 Old myocardial infarction; Z88.8 Allergy status to other drugs, medicaments and biological substances; Z79.4 Long term (current) use of insulin; Z79.82 Long term (current) use of aspirin; Z90.49 Acquired absence of other specified parts of digestive tract; Z89.511 Acquired absence of right leg below knee; Z79.899 Other long term (current) drug therapy; Z89.421 Acquired absence of other right toe(s); Z20.822 Contact with and (suspected) exposure to COVID-19
CPT/HCPCS: 36415; 80048; 80053; 81001; 82947; 83605; 83735; 83880; 84100; 85025; 85027; 87040; 87070; 87205; 87811; 88305; 88311; 99285; C9113; G0378; J0360; J1815; J2001; J2250; J2543; J2704; J3010; J7030

== ENCOUNTER 2022-08-06 15:43 | Inpatient (IN) | payer OTHER ==
--- OUTSIDE RECORDS SUMMARY | 2022-08-06 15:48 | XMS REPORT | Continuity of Care Document ---
:1960 Author Organization [facility] t Address [address] [place] [address] Care Team Providers Name Role Phone JASWANT PEREZ Primary Care Physician Unavailable Omega Horan Attending Clinician Unavailable Emiliano Montano Attending Clinician Unavailable Halima López MD Attending Clinician HALIMA LÓPEZ Attending Clinician Unavailable HALIMA LÓPEZ Admitting Clinician Unavailable Payers Payer Name Policy Type Policy Number Effective Date Expiration Date S [place] [address] [id number] 2020 [facility] 00:00:[place] [id number] [id number] 2020 [facility] t 00:00:[place] [address] [id number] 2020 [facility] Spiri t 00:00:[place] [address] [id number] 2020 Common Spiri t 00:00:00 [facility] Problems Condition Condition Condition Status Onset Resolution Last Treating Co mments Source Name Details Category Date Date Treatment Clinician Date [id number] Vitreous Problem Com sat hemorrhage Spirit , left eye - [facility] [id number] Ocular Problem Common hypertensi Spirit on, left - [facility] eye [facility] [id number] [place] Problem Com mon lithiasis Spirit with acute - [facility] cholecysti [facility] [id number] Status Problem Common post [id number] Gastritis/ Problem Co mmon duodenitis Spirit - [facility] [id number] Amputation Problem Co mmon of fifth Spirit toe of - CHI left foot [facility] [id number] Benign Problem Common essential Spirit HTN - [facility] [id number] Type 2 Problem Common diabetes Spirit mellitus - [facility] with [facility] [id number] Amputation Problem Co mmon of left Spirit index - CHI finger [facility] [id number] GERD Problem Common without Spirit esophagiti - CHI s [facility] [id number] Mixed Problem Common hyperlipid Spirit emia - [facility] [id number] MCC Problem Com mon (current) Spirit use of - [facility]I insulin [facility] [id number] Diabetic Problem Comm on polyneurop Spirit athy - CHI associated [facility] with type [facility] 2 diabetes [facility] [id number] Primary Problem Comm on osteoarthr Spirit itis of - CHI left knee [facility] [id number] Chronic Problem Commo n hepatitis Spirit C without - [facility] hepatic [facility] Amputated Right Problem Common below knee below-knee Sp angeline amputee - [facility] Allergies, Adverse Reactions, Alerts Allergy Allergy Status Severity Reaction(s) Onset Inactive Treating Comm ents Source Name Type Date Date Clinician PIOGLITA DRUG Active Unknown-Cmnt Un malachi ZONE INGREDI - ity of 00:00: [place] 00 Medical Branch Pioglita Propensi Active Unknown - Uni vers zone ty to See comments 07-14 ity of adverse 00:00: [place] reaction 00 Medical s Branch [place] Propensi Active Other - See "It will Univers tin ty to comments 07-14 put me in ity o f adverse 00:00: the [place] reaction 00 hospital" Medic al s Branch Metformi Propensi Active Unknown - "It put Un malachi n ty to See comments 1-21 me in the i ty of adverse 00:00: hospital" [place] reaction 00 Medical s Branch SITAGLIP DRUG Active Other-Cmnt Univ ers TIN INGREDI 07-14 ity of 00:00: [place] 00 Medical Branch METFORMI DRUG Active Unknown-Cmnt Un malachi N INGREDI 07-14 ity of 00:00: [place] 00 Medical Branch NO KNOWN Drug Active Univers ALLERGIE Class ity of S [facility] sitaglip sitaglip Active Unknown Commo n tin tin [facility] metformi metformi Active Unknown Commo n n n [facility] pioglita pioglita Active Unknown Commo n zone zone [facility] Social History Social Habit Start Date Stop Date Quantity Comments Source History of Tobacco Common [facility] - [facility] Use [facility] Exposure to 2022-07-04 2022-07-14 Not sure [facility] SARS-CoV-2 (event) 00:00:00 [facility]:45[facility] Sex Assigned At [birth year] [facility] 00:00:00 00:00:00 Medical Branch Smoking Status Start Date Stop Date Source Tobacco smoking consumption [facility] unknown Branch Never Smoker Common [facility] Medications Ordered Filled Start Stop Current Ordering Indication Dosage Frequency Signature Comments Components Source Medication Medication Date Date Medication? Clinician (SIG) Name Name ondansetron 2022- No 4mg 4 mg, Slow Univers (ZOFRAN 07-14 IV Push, ity of (PF)) 23:45: 22:43 ONCE, 1 [place] injection 4 00 :00 dose, On Medi [place] mg Sat Branch 07/14/22 at 1745, EDGAR morpHINE (4 2022- No 4mg 4 mg, Slow Univers mg/mL) 07-14 IV Push, ity of injection 4 23:45: 23:43 [place] mg [place] :[place] dose, On Medical Sat Branch 07/14/22 at 1745, STAT cloNIDine 2022- No .2mg 0.2 mg, Univ ers (CATAPRES) 07-14 Oral, ity of tablet 0.2 22:45: 22:44 ONCE, 1 [place] mg 00 :00 dose, On Medical Sat Branch 07/14/22 at 1645, STAT proMETHazin 2022- No 25mg 25 mg, IV Univers e 07-14 Piggyback, ity of (PHENERGAN) 22:45: 22:46 ONCE[place] 1 [place] 25 mg in 00 :00 dose, On Medical NaCl 0.9% Sat Branch (NS) 50 mL 07/14/22 at piggyback 1645, 50 mL morpHINE (4 2022- No 4mg 4 mg, Slow Univers mg/mL) 07-14 IV Push, ity of injection 4 22:00: 21:49 ONCE[place] 1 [place] mg [place] :[place] dose, On Medical Sat Branch 07/14/22 at 1600, STAT ondansetron 2022- No 4mg 4 mg, Slow Univers (ZOFRAN 07-14 IV Push, ity of (PF)) 22:00: 21:49 ONCE, 1 [place] injection 4 00 :00 dose, On Medi foster mg Sat Branch 07/14/22 at 1600, EDGAR NaCl 0.9% 2022- No 1000mL at 999 Uni vers (NS) bolus 07-14 mL/hr, ity of infusion 21:45: 00:00 1,000 mL, [place] 1,000 mL 00 :00 IV [facility] ONCE, 1 dose, On 07/14/22 at 1545, STAT famotidine 2022- No 20mg 20 mg, Univ ers (PEPCID 07-14 Slow IV ity of (PF)) 21:00: 21:49 Push, [place] injection 00 :00 ONCE, 1 Medical 20 mg dose, On Branch 07/14/22 at 1500, EDGAR proMETHazin 2022-0 Yes [id number] 25mg Take 1 Univers e 25 mg 1-21 tablet by ity of tablet 00:00: mouth [place] 00 every 6 Medical (six) Branch hours as needed for Nausea and Vomiting (N/V). ondansetron 2022-0 Yes [id number] 4mg Take 1 Univers 4 mg 1-21 tablet by ity of disintegrat 00:00: mouth [place] ing tablet 00 every 8 Medica l (eight) Branch hours as needed for Nausea and Vomiting (N/V). acetaminoph 2022- Yes [id number] 1{tbl} Take 1 U nivers en-codeine 07-14 tablet by ity of 300-30 mg 00:00: 05:59 mouth [place] tablet 00 :00 every 4 Medical (four) Branch hours as needed for Pain (scale 1-3) for up to 7 days. Indication s: acute pain Bupivicaine Bupivicaine 2020-06 No 2.5mg Common [place] 2[place] Spirit 00:00: - [facility] 2020-06 No 40mg Common (Triamcinol (Triamcinol 2-13 S pirit one) one) 00:00: - [facility] Bupivicaine Bupivicaine 2020-06 No 2.5mg Common [place] 2-13 Spirit 00:00: - [facility] 2020-06 No 40mg Common (Triamcinol (Triamcinol 2-13 S pirit one) one) 00:00: - CHI 00 [facility] Bupivicaine Bupivicaine 2020-06 No 2.5mg Common [place] 2-13 Spirit 00:00: - CHI 00 [facility] 2020-06 No 40mg Common (Triamcinol (Triamcinol 2-13 S pirit one) one) 00:00: - CHI 00 [facility] Bupivicaine Bupivicaine 2020-06 No 2.5mg Common [place] 2-13 Spirit 00:00: - CHI 00 [facility] Jorgealog 2020-06 No 40mg Common (Triamcinol (Triamcinol 2-13 S pirit one) one) 00:00: - CHI 00 [facility] Bupivicaine Bupivicaine 2020-06 No 2.5mg Common [place] 2-13 Spirit 00:00: - [facility] Jorgealog 2020-06 No 40mg Common (Triamcinol (Triamcinol 2-13 S pirit one) one) 00:00: - CHI 00 [facility] Bupivicaine Bupivicaine 2020-06 No 2.5mg Common [place] 2-13 Spirit 00:00: - CHI 00 [facility] Kenalog Kenalog 2020-06 No 40mg Common (Triamcinol (Triamcinol 2-13 S pirit one) one) 00:00: - CHI 00 [facility] Bupivicaine Bupivicaine 2020-06 No 2.5mg Common [place] 2-13 Spirit 00:00: - CHI 00 [facility] Amairani Kenalog 2020-06 No 40mg Common (Triamcinol (Triamcinol 2-13 S pirit one) one) 00:00: - CHI 00 [facility] Bupivicaine Bupivicaine 2020-06 No 2.5mg Common [place] 2-13 Spirit 00:00: - CHI 00 [facility] Amairani Kenalog 2020-06 No 40mg Common (Triamcinol (Triamcinol 2-13 S pirit one) one) 00:00: - CHI 00 [facility] Bupivicaine Bupivicaine 2020-06 No 2.5mg Common [place] 2-13 Spirit 00:00: - CHI 00 [facility] Kenchiquita Kenalog 2020-06 No 40mg Common (Triamcinol (Triamcinol 2-13 S pirit one) one) 00:00: - CHI 00 [facility] Bupivicaine Bupivicaine 2020-06 No 2.5mg Common [place] 2-13 Spirit 00:00: - CHI 00 [facility] Kenalog Kenalog 2020-06 No 40mg Common (Triamcinol (Triamcinol 2-13 S pirit one) one) 00:00: - CHI 00 [facility] Bupivicaine Bupivicaine 2020-06 No 2.5mg Common [place] 2-13 Spirit 00:00: - CHI 00 [facility] Kenalog Kenalog 2020-06 No 40mg Common (Triamcinol (Triamcinol 2-13 S pirit one) one) 00:00: - CHI 00 [facility] Bupivicaine Bupivicaine 2020-06 No 2.5mg Common [place] 2-13 Spirit 00:00: - CHI 00 [facility] Amairani Patelalog 2020-06 No 40mg Common (Triamcinol (Triamcinol 2-13 S pirit one) one) 00:00: - CHI 00 [facility] Bupivicaine Bupivicaine 2020-06 No 2.5mg Common [place] 2-13 Spirit 00:00: - CHI 00 [facility] Amairani Patelalog 2020-06 No 40mg Common (Triamcinol (Triamcinol 2-13 S pirit one) one) 00:00: - CHI 00 [facility] Bupivicaine Bupivicaine 2020-06 No 2.5mg Common [place] 2-13 Spirit 00:00: - CHI 00 [facility] Amairani Bales 2020-06 No 40mg Common (Triamcinol (Triamcinol 2-13 S pirit one) one) 00:00: - CHI 00 [facility] Bupivicaine Bupivicaine 2020-06 No 2.5mg Common [place] 2-13 Spirit 00:00: - CHI 00 [facility] Amairani Bales 2020-06 No 40mg Common (Triamcinol (Triamcinol 2-13 S pirit one) one) 00:00: - CHI 00 [facility] Bupivicaine Bupivicaine 2020-06 No 2.5mg Common [place] 2-13 Spirit 00:00: - CHI 00 [facility] Amairani Patelalog 2020-06 No 40mg Common (Triamcinol (Triamcinol 2-13 S pirit one) one) 00:00: - CHI 00 [facility] Bupivicaine Bupivicaine 2020-06 No 2.5mg Common [place] 2-13 Spirit 00:00: - CHI 00 [facility] Amairani Kenalog 2020-06 No 40mg Common (Triamcinol (Triamcinol 2-13 S pirit one) one) 00:00: - CHI 00 [facility] Bupivicaine Bupivicaine 2020-06 No 2.5mg Common [place] 2-13 Spirit 00:00: - CHI 00 [facility] Amairani Patelalog 2020-06 No 40mg Common (Triamcinol (Triamcinol 2-13 S pirit one) one) 00:00: - CHI 00 [facility] Bupivicaine Bupivicaine 2020-06 No 2.5mg Common [place] 2-13 Spirit 00:00: - CHI 00 [facility] Amairani Patelalog 2020-06 No 40mg Common (Triamcinol (Triamcinol 2-13 S pirit one) one) 00:00: - CHI 00 [facility] Bupivicaine Bupivicaine 2020-06 No 2.5mg Common [place] 2-13 Spirit 00:00: - CHI 00 [facility] Amairani Bales 2020-06 No 40mg Common (Triamcinol (Triamcinol 2-13 S pirit one) one) 00:00: - CHI 00 [facility] Bupivicaine Bupivicaine 2020-06 No 2.5mg [place] 2-13 Spirit 00:00: - CHI 00 [facility] Amairani Bales 2020-06 No 40mg Common (Triamcinol (Triamcinol 2-13 S pirit one) one) 00:00: - CHI 00 [facility] traMADol traMADol 2020-06- No 1{table QD traMADol [...] No OneTouch Delica Plus Delica Plus Delica Tpidfi36J - Bfspvm54B - Plus Kzdasq50T - Aspirin 81 Aspirin 81 No 1{table [...] No OneTouch Delica Plus Delica Plus Delica Wmqvpp73H - Hrksmm63H - Plus Txaphj54D - Aspirin 81 Aspirin 81 No 1{table [...] No OneTouch Delica Plus Delica Plus Delica Ovnyqa70X - Zqcmrd40U - Plus Slubqx12U - NovoLIN NovoLIN No BID NovoLIN 70/30 [...] No OneTouch Delica Plus Delica Plus Delica Wjutgw94R - Tfbzvp43E - Plus Swuqek52C - NovoLIN NovoLIN No BID NovoLIN 70/30 [...] No OneTouch Delica Plus Delica Plus Delica Mecuak43F - Sgcfvw13T - Plus Ubkqje58C - Aspirin 81 Aspirin 81 No 1{table [...] No OneTouch Delica Plus Delica Plus Delica Fvmwth26D - Mmmtpc21O - Plus Gukrji95A - OneTouch OneTouch No OneTouch Verio Flex [...] No OneTouch Delica Plus Delica Plus Delica Vcghdj58E - Svrlxl67B - Plus Rglyvk33P - OneTouch OneTouch No OneTouch Verio Flex [...] No OneTouch Delica Plus Delica Plus Delica Kihzkp77L - Eniupy89G - Plus Ugalwf86W - OneTouch OneTouch No OneTouch Verio Flex Verio Flex Verio Flex System System System w/Device w/Device w/Device Lisinopril Lisinopril No 1{table QD Lisinopril 40 MG 40 MG t} 40 MG OneTouch OneTouch No OneTouch Delica Plus Delica Plus Delica Htkzuc15M - Qhusjc21K - Plus Bqzpan91A - Centrum Centrum No Centrum Silver Silver [...] No OneTouch Delica Plus Delica Plus Delica Zsgdac00X - Enpskv65D - Plus Jwxaqo50U - Centrum Centrum No Centrum Silver Silver [...] No OneTouch Delica Plus Delica Plus Delica Ymhnwr48P - Wydvml94W - Plus Nopkyj41Z - OneTouch OneTouch No OneTouch Verio - [...] No OneTouch Delica Plus Delica Plus Delica Pkbkov41F - Ifghwu19W - Plus Jrtcti31U - OneTouch OneTouch No OneTouch Verio - [...] No OneTouch Delica Plus Delica Plus Delica Himstp85H - Mqxegl25Y - Plus Lkocha99L - OneTouch OneTouch No OneTouch Verio - [...] No OneTouch Delica Plus Delica Plus Delica Bwgber45U - Zxzrum07N - Plus Tkvbql33V - OneTouch OneTouch No OneTouch Verio - [...] No OneTouch Delica Plus Delica Plus Delica Ngyqnl60D - Fgajrz84Z - Plus Padofy56C - Atorvastati Atorvastati No 1{table QD Atorvastat [...] No OneTouch Delica Plus Delica Plus Delica Rvpncf86Z - Zqsgbh56T - Plus Sulwib98X - Atorvastati Atorvastati No 1{table QD Atorvastat [...] No OneTouch Delica Plus Delica Plus Delica Cylypi89B - Jbefyq65Q - Plus Onitnc94Z - Atorvastati Atorvastati No 1{table QD Atorvastat [...] No OneTouch Delica Plus Delica Plus Delica Kgyikl35T - Ivmyuc27L - Plus Hvgmoc37O - Atorvastati Atorvastati No 1{table QD Atorvastat [...] No OneTouch Delica Plus Delica Plus Delica Ggplxz28L - Gljbma35H - Plus Ywzgwf63Z - Atorvastati Atorvastati No 1{table QD Atorvastat [...] Centrum Centrum No Centrum Silver Silver Silver Mupirocin 2 Mupirocin 2 No 1{appli TID Mupirocin % % cation_ 2 % to_affe cted_ar ea} OneTouch OneTouch No OneTouch Verio - Verio [...] No OneTouch Delica Plus Delica Plus Delica Emphhe16T - Wquvkq67I - Plus Sqawri01C - Atorvastati Atorvastati No Atorvastat n Calcium n Calcium in Calcium 10 MG 10 MG 10 MG NovoLIN NovoLIN No BID NovoLIN 70/30 70/30 70/30 (70-30) 100 (70-30) 100 (70-30) UNIT/ML UNIT/ML 100 UNIT/ML Centrum Centrum No Centrum Silver Silver Silver Mupirocin 2 Mupirocin 2 No 1{appli TID Mupirocin % % cation_ 2 % to_affe cted_ar ea} OneTouch OneTouch No OneTouch Verio - Verio [...] No OneTouch Delica Plus Delica Plus Delica Hndpab18Z - Eoaxom56V - Plus Aiifmg71V - Atorvastati Atorvastati No Atorvastat n Calcium n Calcium in Calcium 10 MG 10 MG 10 MG NovoLIN NovoLIN No BID NovoLIN 70/30 70/30 70/30 (70-30) 100 (70-30) 100 (70-30) UNIT/ML UNIT/ML 100 UNIT/ML Centrum Centrum No Centrum Silver Silver Silver Mupirocin 2 Mupirocin 2 No 1{appli TID Mupirocin % % cation_ 2 % to_affe cted_ar ea} OneTouch OneTouch No OneTouch Verio - Verio [...] No OneTouch Delica Plus Delica Plus Delica Myitkv65W - Vaczrh23M - Plus Memfzi85C - Atorvastati Atorvastati No Atorvastat n Calcium n Calcium in Calcium 10 MG 10 MG 10 MG NovoLIN NovoLIN No BID NovoLIN 70/30 70/30 70/30 (70-30) 100 (70-30) 100 (70-30) UNIT/ML UNIT/ML 100 UNIT/ML OneTouch OneTouch No OneTouch Delica Plus Delica Plus Delica Kkmxrc34E - Qjvvgk02I - Plus Qrlmxi84H - Lisinopril Lisinopril No 1{table QD Lisinopril 40 MG 40 MG t} 40 MG NovoLIN NovoLIN No BID NovoLIN 70/30 70/30 70/30 (70-30) 100 (70-30) 100 (70-30) UNIT/ML UNIT/ML 100 UNIT/ML OneTouch OneTouch No OneTouch Verio Flex Verio Flex Verio Flex System System System w/Device w/Device w/Device OneTouch OneTouch No OneTouch Verio - Verio - Verio - Mupirocin 2 Mupirocin 2 No 1{appli TID Mupirocin % % cation_ 2 % to_affe cted_ar ea} Centrum Centrum No Centrum Silver Silver Silver Atorvastati Atorvastati No Atorvastat n Calcium n Calcium in Calcium 10 MG 10 MG 10 MG Aspirin 81 Aspirin 81 No 1{table QD Aspirin 81 81 MG 81 MG t} 81 MG Atorvastati Atorvastati No 1{table QD Atorvastat n Calcium n Calcium t} in Calcium 10 MG 10 MG 10 MG OneTouch OneTouch No OneTouch Delica Plus Delica Plus Delica Rqetpa78I - Eunnxc94S - Plus Duqeqj59G - Lisinopril Lisinopril No 1{table QD Lisinopril 40 MG 40 MG t} 40 MG NovoLIN NovoLIN No BID NovoLIN 70/30 70/30 70/30 (70-30) 100 (70-30) 100 (70-30) UNIT/ML UNIT/ML 100 UNIT/ML OneTouch OneTouch No OneTouch Verio Flex Verio Flex Verio Flex System System System w/Device w/Device w/Device OneTouch OneTouch No OneTouch Verio - Verio - Verio - Mupirocin 2 Mupirocin 2 No 1{appli TID Mupirocin % % cation_ 2 % to_affe cted_ar ea} Centrum Centrum No Centrum Silver Silver Silver Atorvastati Atorvastati No Atorvastat n Calcium n Calcium in Calcium 10 MG 10 MG 10 MG Aspirin 81 Aspirin 81 No 1{table QD Aspirin 81 81 MG 81 MG t} 81 MG Atorvastati Atorvastati No 1{table QD Atorvastat n Calcium n Calcium t} in Calcium 10 MG 10 MG 10 MG Centrum Centrum No Centrum Silver Silver Silver OneTouch OneTouch No OneTouch Delica Plus Delica Plus Delica Unnpst55Z - Qxhgnx71E - Plus Glwtjy81K - OneTouch OneTouch No OneTouch Verio - [...] No OneTouch Delica Plus Delica Plus Delica Fzrwaf10A - Ttryxy69O - Plus Hisfqi80A - OneTouch OneTouch No OneTouch Verio - [...] No OneTouch Delica Plus Delica Plus Delica Elibxx66Y - Henfkn90M - Plus Aunczc22E - Vital Signs Vital Name Observation Time Observation Value Comments Source Systolic blood 2022-07-15 00:00:00 191 mm[Hg] [facility]iver [facility]ity [facility] Diastolic blood 2022-07-15 00:00:00 105 mm[Hg] [facility] Heart rate 2022-07-15 00:00:00 97 /min [facility] Respiratory rate 2022-07-15 00:00:00 14 /[facility] O[facility] saturation in 2022-07-15 00:00:00 95 /min [facility] Arterial blood by [facility] Pulse oximetry Branch Body temperature 2022-07-14 20:47:00 36.5 [facility] Body height 2022-07-14 20:47:00 167.6 cm [facility] Body weight 2022-07-14 20:47:00 70.308 kg [facility] BMI 2022-07-14 20:47:00 25.02 kg/m2 [facility] height 2022-05-28 13:20:00 66.5 [in_i] [facility] weight 2022-05-28 13:20:00 156.6 [lb_av] [facility] temperature 2022-05-28 13:20:00 97.2 [degF] [facility] bmi 2022-05-28 13:20:00 24.89 kg/m2 [facility] oximetry 2022-05-28 13:20:00 91 % [facility] respiratory rate 2022-05-28 13:20:00 16 /min Comm on [facility] blood pressure 2022-05-28 13:20:00 129 mm[Hg] [facility] - systolic [facility] blood pressure 2022-05-28 13:20:00 67 mm[Hg] [facility] - diastolic [facility] height 2022-04-25 09:40:00 66.5 [in_i] [facility] weight 2022-04-25 09:40:00 149.7 [lb_av] [facility] temperature 2022-04-25 09:40:00 97.4 [degF] [facility] bmi 2022-04-25 09:40:00 23.8 kg/m2 [facility] oximetry 2022-04-25 09:40:00 100 % Common [facility] respiratory rate 2022-04-25 09:40:00 17 /min Comm on [facility] blood pressure 2022-04-25 09:40:00 142 mm[Hg] Common [facility] - systolic [facility] blood pressure 2022-04-25 09:40:00 87 mm[Hg] Common [facility] - diastolic [facility] height 2022-04-06 10:00:00 66.5 [in_i] Common [facility] weight 2022-04-06 10:00:00 158.0 [lb_av] [facility] temperature 2022-04-06 10:00:00 97.3 [degF] [facility] bmi 2022-04-06 10:00:00 25.12 kg/m2 [facility] oximetry 2022-04-06 10:00:00 90 % [facility] respiratory rate 2022-04-06 10:00:00 16 /min Comm on [facility] blood pressure 2022-04-06 10:00:00 119 mm[Hg] Common [facility] systolic [facility] blood pressure 2022-04-06 10:00:00 80 mm[Hg] Common [facility] - diastolic [facility] height 2022 09:30:00 66.5 [in_i] Common [facility] weight 2022 09:30:00 152 [lb_av] Common [facility] temperature 2022 09:30:00 98.0 [degF] [facility] bmi 2022 09:30:00 24.16 kg/m2 [facility] oximetry 2022 09:30:00 95 % [facility] respiratory rate 2022 09:30:00 16 /min Comm on [facility] blood pressure 2022 09:30:00 138 mm[Hg] [facility] - systolic [facility] blood pressure 2022 09:30:00 69 mm[Hg] [facility] - diastolic [facility] height 2022-01-08 13:30:00 66 [in_i] Common [facility] weight 2022-01-08 13:30:00 149.4 [lb_av] Common [facility] temperature 2022-01-08 13:30:00 98.1 [degF] Common S pirit [facility] bmi 2022-01-08 13:30:00 24.11 kg/m2 [facility] oximetry 2022-01-08 13:30:00 97 % Common S [facility] respiratory rate 2022-01-08 13:30:00 17 /min Comm on [facility] blood pressure 2022-01-08 13:30:00 121 mm[Hg] [facility] - systolic [facility] blood pressure 2022-01-08 13:30:00 69 mm[Hg] [facility] - diastolic [facility] height 2021-12-07 09:20:00 66 [in_i] Common S [facility] weight 2021-12-07 09:20:00 149.9 [lb_av] Common [facility] temperature 2021-12-07 09:20:00 98.4 [degF] Common S pirit [facility] bmi 2021-12-07 09:20:00 24.19 kg/m2 Common S pirit [facility] oximetry 2021-12-07 09:20:00 96 % [facility] 2021-12-07 09:20:00 17 /min Comm on [facility] blood pressure 2021-12-07 09:20:00 132 mm[Hg] [facility] - systolic [facility] blood pressure 2021-12-07 09:20:00 74 mm[Hg] [facility] - diastolic [facility] height 2021-08-07 10:30:00 66 [in_i] Common S pirit [facility] weight 2021-08-07 10:30:00 157.2 [lb_av] [facility] temperature 2021-08-07 10:30:00 97.8 [degF] Common S pirit [facility] bmi 2021-08-07 10:30:00 25.37 kg/m2 Common S pirit [facility] oximetry 2021-08-07 10:30:00 100 % [facility] respiratory rate 2021-08-07 10:30:00 18 /min Comm on [facility] blood pressure 2021-08-07 10:30:00 137 mm[Hg] [facility] - systolic [facility] blood pressure 2021-08-07 10:30:00 76 mm[Hg] [facility] - diastolic [facility] height 2021-05-12 10:50:00 66 [in_i] Common S pirit [facility] weight 2021-05-12 10:50:00 157.0 [lb_av] [facility] temperature 2021-05-12 10:50:00 98.1 [degF] Common S pirit [facility] bmi 2021-05-12 10:50:00 25.34 kg/m2 [facility] [facility] oximetry 2021-05-12 10:50:00 100 % [facility] S pirit [facility] respiratory rate 2021-05-12 10:50:00 16 /min [facility] blood pressure 2021-05-12 10:50:00 132 mm[Hg] [facility] blood pressure 2021-05-12 10:50:00 72 mm[Hg] [facility] height 2021-05-08 08:40:00 66 [in_i] [facility] weight 2021-05-08 08:40:00 157.0 [lb_av] [facility] temperature 2021-05-08 08:40:00 96.9 [degF] Common [facility] bmi 2021-05-08 08:40:00 25.34 kg/m2 Common [facility] oximetry 2021-05-08 08:40:00 99 % Common [facility] respiratory rate 2021-05-08 08:40:00 18 /min [facility] blood pressure 2021-05-08 08:40:00 122 mm[Hg] Common [facility] - systolic [facility] blood pressure 2021-05-08 08:40:00 80 mm[Hg] Common [facility] diastolic [facility] Procedures Procedure Date / Time Performed Performing Clinician Sour e EKG-12 LEAD 2022-07-14 23:06:40 Halima López [facility] LIPASE 2022-07-14 21:48:00 Halima López [facility] TROPONIN I 2022-07-14 21:48:00 Halima López [facility] COMP. METABOLIC PANEL 2022-07-14 21:48:00 Halima López [facility] ([id number]) [facility] CBC WITH DIFF 2022-07-14 21:48:00 Halima López [facility] URINALYSIS 2022-07-14 21:48:00 Halima López [facility] XR CHEST 1 VW 2022-07-14 21:27:25 Halima López [facility] NOTICE OF PRIVACY 2022-07-14 20:38:57 Doctor Unassigned, No [facility] PRACTICES Name [facility] Encounters Start End Encounter Admission Attending Care Care Encounter Source Date/Time Date/Time Type Type Clinicians Facility Department ID 2022-05-24 Outpatient [facility] [id number] Common 13:09:02 [facility] 2022-05-15 Outpatient Horan, [facility] [id number] Common 08:31:01 [facility] 2022-04-09 Outpatient Horan, STLMLC ST[facility] [id number] Common 10:01:00 [facility] 2022-04-06 Outpatient Horan, STLMLC STLMLC Common 08:30:03 [facility] 2021-12-20 Outpatient Horan, STLMLC STLMLC Common 11:56:02 [facility] 2021-08-03 Outpatient Horan, STLMLC STLMLC Common 17:19:01 [facility] 2021-07-25 Outpatient Horan, STLMLC STLMLC Common 10:00:03 [facility] 2021-07-19 Outpatient Horan, STLMLC STLMLC Common 14:16:53 [facility] 2021-07-19 Outpatient Horan, STLMLC STLMLC Common 14:15:44 [facility] 2021-07-19 Outpatient Horan, STLMLC STLMLC Common 14:15:19 [facility] 2021-07-19 Outpatient Horan, STLMLC STLMLC Common 14:14:02 [facility] 2021-07-19 Outpatient Horan, STLMLC STLMLC Common 14:13:04 [facility] 2021-07-19 Outpatient Horan, STLMLC STLMLC Common 14:12:27 [facility] 2021-07-19 Outpatient Horan, STLMLC STLMLC Common 14:07:06 [facility] 2021-07-19 Outpatient Horan, STLMLC STLMLC Common 13:39:58 [facility] [address] [facility] 2021-07-19 Outpatient Horan, STLMLC STLMLC [id number] Common 13:04:23 [facility] [address] [facility] 2021-07-19 Outpatient Horan, STLMLC STLMLC [id number] Common 12:31:34 [facility] [address] [facility] 2021-07-19 Outpatient Horan, STLMLC STLMLC [id number] Common 12:30:18 [facility] [address] [facility] 2021-07-19 Outpatient Horan, STLMLC STLMLC [id number] Common 12:24:12 [facility] [address] [facility] 2021-07-19 Outpatient zzzKovacev, STLMLC STLMLC [id number] Common 12:22:51 Emiliano [id number] [facility] 2022-07-14 2022-07-14 Emergency Shamika [facility] [id number] Univers 14:52:00 19:21:00 Halima JEFF [id number] ity [facility] [id number] [facility] [id number] [place] [id number] [place] 2022-07-14 2022-07-14 Emergency X SHAMIKA [facility] ERT [id number] Univers 14:52:00 19:21:00 HALIMA ity [facility] 2022-06-20 2022-06-20 (TEL) STLMLC STLMLC [id number] Co mmon 00:00:00 00:00:00 [facility] 2022-05-28 2022-05-28 OFFICE STLMLC STLMLC [id number] Co mmon 00:00:00 00:00:00 VISIT [facility] ESTAB PT - CHI LEVEL 4 [facility] 2022-05-11 2022-05-11 (TEL) STLMLC STLMLC [id number] Co mmon 00:00:00 00:00:00 Spirit CHI [facility] 2022-04-25 2022-04-25 OFFICE STLMLC STLMLC [id number] Co mmon 00:00:00 00:00:00 [facility]IT [facility] ESTAB PT - CHI LEVEL 5 [facility] 2022-04-24 2022-04-24 (TEL) STLMLC STLMLC [id number] Co mmon 00:00:00 00:00:00 [facility] 2022-04-17 2022-04-17 (TEL) STLMLC STLMLC [id number] Co mmon 00:00:00 00:00:00 [facility] 2022-04-11 2022-04-11 (TEL) STLMLC STLMLC [id number] Co mmon 00:00:00 00:00:00 [facility] 2022-04-06 2022-04-06 (HOSP F/U) STLMLC STLMLC [id number] Common 00:00:00 00:00:00 Hospital Spiri t Follow Up [facility] 2022-04-06 2022-04-06 (TEL) STLMLC STLMLC [id number] Co mmon 00:00:00 00:00:00 [facility] 2022-04-05 2022-04-05 (TEL) STLMLC STLMLC [id number] Co mmon 00:00:00 00:00:00 [facility] 2022-04-02 2022-04-02 (TEL) STLMLC STLMLC [id number] Co mmon 00:00:00 00:00:00 [facility] 2022-04-02 2022-04-02 (TEL) STLMLC STLMLC [id number] Co mmon 00:00:00 00:00:00 [facility] 2022-03-06 2022-03-06 (TEL) STLMLC STLMLC [id number] Co mmon 00:00:00 00:00:00 [facility] 2022 2022 (WELLNESS) STLMLC STLMLC [id number] Common 00:00:00 00:00:00 Wellness Spiri t Visit [facility] 2022-01-08 2022-01-08 OFFICE STLMLC STLMLC [id number] Co mmon 00:00:00 00:00:00 VISIT EST Spir it PT LEVEL 3 - [facility] 2022-01-08 2022-01-08 (TEL) STLMLC STLMLC [id number] Co mmon 00:00:00 00:00:00 [facility] 2021-12-20 2021-12-20 (TEL) STLMLC STLMLC [id number] Co mmon 00:00:00 00:00:00 [facility] 2021-12-07 2021-12-07 OFFICE STLMLC STLMLC [id number] Co mmon 00:00:00 00:00:00 VISIT EST Spir it PT LEVEL 3 - CHI [facility] 2021-12-04 2021-12-04 (TEL) STLMLC STLMLC [id number] Co mmon 00:00:00 00:00:00 [facility] 2021-08-07 2021-08-07 OFFICE STLMLC STLMLC [id number] Co mmon 00:00:00 00:00:00 VISIT [facility] PT - CHI LEVEL 4 [facility] 2021-08-02 2021-08-02 (TEL) STLMLC STLMLC [id number] Co mmon 00:00:00 00:00:00 [facility] 2021-05-12 2021-05-12 OFFICE STLMLC STLMLC [id number] Co mmon 00:00:00 00:00:00 VISIT [facility] PT - CHI LEVEL 4 [facility] 2021-05-08 2021-05-08 (TEL) STLMLC STLMLC [id number] Co mmon 00:00:00 00:00:00 [facility] 2021-05-08 2021-05-08 OFFICE STLMLC STLMLC [id number] Co mmon 00:00:00 00:00:00 VISIT EST Spir it PT LEVEL 3 - CHI [facility] 2021-05-05 2021-05-05 (TEL) STLMLC STLMLC [id number] Co mmon 00:00:00 00:00:00 [facility] 2021-03-17 2021-03-17 Outpatient STLMLC STLMLC [id number] Common 00:00:00 00:00:00 [facility] 2021-03-14 2021-03-14 Outpatient STLMLC STLMLC [id number] Common 00:00:00 00:00:00 [facility] 2021-03-02 2021-03-02 Outpatient STLMLC STLMLC [id number] Common 00:00:00 00:00:00 [facility] 2021-02-09 2021-02-09 Outpatient STLMLC STLMLC [id number] Common 00:00:00 00:00:00 [facility] 2020-11-10 2020-11-10 Outpatient STLMLC STLMLC [id number] Common 00:00:00 00:00:00 [facility] 2020-08-13 2020-08-13 Outpatient STLMLC STLMLC [id number] Common 00:00:00 00:00:00 [facility] 2020-07-19 2020-07-19 Outpatient STLMLC STLMLC [id number] Common 00:00:00 00:00:00 [facility] 2020-07-12 2020-07-12 Outpatient STLMLC STLMLC [id number] Common 00:00:00 00:00:00 [facility] 2020-07-12 2020-07-12 Outpatient STLMLC STLMLC [id number] Common 00:00:00 00:00:00 [facility] Results Test Description Test Time Test Comments Results Result Comments Source TROPONIN I 2022-07-14 22:34:22 Test Item Value Reference Range Interpretation Comme nts TROPONIN I (test code = 0.012 ng/mL See_Comment [Au tomated message] The [id number]) system which ge nerated this result tra nsmitted reference range : <=0.034. The reference r pedro was not used to int erpret this result as normal/abnormal . FREDI (test code = FREDI) Reference (Normal) Range (defined by the 99th percentile reference limit): <= 0.034 ng/mL Note: Cardiac troponin begins to rise 3-4 hours after the onset of ischemia. Repeat in 4-6 hours if the sample was drawn within 3-4 hours of the onset of the symptom and found normal. Diagnosis of myocardial injury is made with acute changes in cTn concentrations with at least one serial sample above the 99th percentile upper reference limit (URL), taken together with the patient's clinical presentation. Biotin has been reported to cause a negative bias, interpret results relative to patient's use of biotin. Lab Interpretation Normal (test code = 71401-1) [facility]. METABOLIC PANEL (07729)2022-07-14 22:23:02 Test Item Value Reference Range Interpretation Comments NA (test code = 139 mmol/L 135-145 6506956594) K (test code = 3.9 mmol/L 3.5-5.0 2785554098) CL (test code = 104 mmol/L 98-108 9441398044) CO2 TOTAL (test code = 20 mmol/L 23-31 L 7604693410) AGAP (test code = 2-16 8713751738) BUN (test code = 21 mg/dL 7-23 0549211819) GLUCOSE (test code = 288 mg/dL 70-110 H 5646014108) CREATININE (test code = 0.93 mg/dL 0.60-1.25 0353038224) TOTAL BILI (test code = 1.3 mg/dL 0.1-1.1 H 4232807413) CALCIUM (test code = 9.8 mg/dL 8.6-10.6 1874235186) T PROTEIN (test code = 7.6 g/dL 6.3-8.2 1183424750) ALBUMIN (test code = 4.7 g/dL 3.5-5.0 2940573188) ALK PHOS (test code = 118 U/L 34-122 7363566710) ALTv (test code = 27 U/L 5-50 1742-6) AST(SGOT) (test code = 38 U/L 13-40 3388297961) eGFR (test code = mL/min/1.73m2 1382260787) FREDI (test code = FREDI) Association of Glomerular Filtration Rate (GFR) and Staging of Kidney Disease* + --+ --+ ------+| GFR (mL/min/1.73 m2) ?| With Kidney Damage ?| ?Without Kidney Damage+ --------+ --------+ +| ?>90 ?| ?Stage one ?| ? Normal ?+ ---+ ---+ -------+| ?60-89 ?| ?Stage two ?| ? Decreased GFR ? + --+ --+ ------+| ?30-59 ?| ?Stage three ?| ? Stage three ? + --+ --+ ------+| ?15-29 ?| ?Stage four ? | ? Stage four ?+ ---+ ---+ -------+| ?<15 (or dialysis) ? ?| ?Stage five ? | ? Stage five ?+ ---+ ---+ -------+ *Each stage assumes the associated GFR level has been in effect for at least three months. ?Stages 1 to 5, with or without kidney disease, indicate chronic kidney disease. Notes: Determination of stages one and two (with eGFR >59mL/min/1.73 m2) requires estimation of kidney damage for at least three months as defined by structural or functional abnormalities of the kidney, manifested by either:Pathological abnormalities or Markers of kidney damage (including abnormalities in the composition of the blood or urine or abnormalities in imaging tests). Lab Interpretation Abnormal (test code = 62246-5) [facility] Test Item Value Reference Range Interpretation Comments LIPASE (test code = 2238607598) 109 U/L 0-220 Lab Interpretation (test code = Normal 64938-3) [facility] [id number] 22:13:21 Test Item Value Reference Range Interpretation Comments WBC (test code = See_Comment H [Automated 1615-2) message] The sy stem which generated this result transmitted reference range : 4.20 - 10.70 10*3/?L. The reference range was not used to interpret this result as normal/abnormal . RBC (test code = See_Comment L [Automated 349-8) message] The sy stem which generated this result transmitted reference range : 4.26 - 5.52 10*6/?L. The reference range was not used to interpret this result as normal/abnormal . HGB (test code = 12.6 g/dL 12.2-16.4 718-7) HCT (test code = 35.6 % 38.4-49.3 L 4544-3) MCV (test code = 90.1 fL 81.7-95.6 787-2) MCH (test code = 31.9 pg 26.1-32.7 785-6) MCHC (test code = 35.4 g/dL 31.2-35.0 H 786-4) RDW-SD (test code = 43.2 fL 38.5-51.6 09006-1) RDW-CV (test code = 13.0 % 12.1-15.4 788-0) PLT (test code = See_Comment [Automated 777-3) message] The sy stem which generated this result transmitted reference range : 150 - 328 10*3/ ?L. The reference r pedro was not used to interpret this result as normal/abnormal . MPV (test code = 10.1 fL 9.8-13.0 85580-7) NRBC/100 WBC (test See_Comment [Automat ed code = 1278581555) message] The system which generated this result transmitted reference range : 0.0 - 10.0 /100 WBCs. The refer ence range was not u sed to interpret th is result as normal/abnormal . NRBC x10^3 (test code See_Comment [Auto mated = 3165300344) message] The s ystem which generated this result transmitted reference range : 10*3/?L. The reference range was not used to interpret this result as normal/abnormal . GRAN MAT (NEUT) % 88.6 % (test code = 770-8) IMM GRAN % (test code 0.40 % = 0591893512) LYMPH % (test code = 8.7 % 736-9) MONO % (test code = 2.0 % 5905-5) EOS % (test code = 0.0 % 713-8) BASO % (test code = 0.3 % 706-2) GRAN MAT x10^3(ANC) 9.74 10*3/uL 1.99-6.95 H (test code = 0197220939) IMM GRAN x10^3 (test 0.04 10*3/uL 0.00-0.06 code = 6780424294) LYMPH x10^3 (test code 0.95 10*3/uL 1.09-3.23 L = 731-0) MONO x10^3 (test code 0.22 10*3/uL 0.36-1.02 L = 742-7) EOS x10^3 (test code = 0.06-0.53 L 711-2) BASO x10^3 (test code 0.03 10*3/uL 0.01-0.09 = 704-7) Lab Interpretation Abnormal (test code = 58483-3) [facility]
[2022-08-06] MEDS ORDERED: ONDANSETRON 4 MG/2 ML VIAL ONE (16:26)
[2022-08-06] MEDS ORDERED: LIDOCAINE 1% 20 ML MDV ONE (16:26)
[2022-08-06] MEDS ORDERED: FENTANYL CITR 100 MCG/2 ML ONE ×2 (16:26→17:56)
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
[2022-08-06 17:20] LABS: Absolute Lymphocytes (CBC) 1.7 K/uL (0.7-4.9); Hematocrit 38.9 % (39.6-49.0); Lymphocytes % 14.5 % (15.3-44.8); MCV 94.4 fL (80-100); MPV 8.2 fL (7.6-11.3); RBC Red Blood Cell Count 4.12 M/uL (4.33-5.43)
[2022-08-06 17:39] LABS: Potassium 4.1 mmol/L (3.5-5.1)
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
[2022-08-06 20:05] LABS: SARS-CoV-2 Antigen Rapid Res Negative (Negative)
[2022-08-06] MEDS: NA CHLORIDE 0.9% 1,000 ML IV SCH (21:41)
[2022-08-06] MEDS: ONDANSETRON 4 MG/2 ML VIAL IV PRN (21:42)
[2022-08-06] MEDS: MORPHINE 4 MG/ML SYR IV PRN (21:49)
[2022-08-06 23:32] VITALS: O2SAT 98
[2022-08-06] MEDS: INSULIN -REGULAR HUMAN 50 UNIT/0.5 ML ML SQ SCH (23:39)
[2022-08-07 03:43] LABS: Absolute Lymphocytes (CBC) 1.5 K/uL (0.7-4.9); Hematocrit 34.8 % (39.6-49.0); Lymphocytes % 13.6 % (15.3-44.8); MCV 93.5 fL (80-100); MPV 7.6 fL (7.6-11.3); RBC Red Blood Cell Count 3.73 M/uL (4.33-5.43)
[2022-08-07 04:42] LABS: Urine Bacteria <20 /HPF (<20); Urine Bilirubin NEGATIVE (Negative); Urine Blood 1+ (Negative); Urine Clarity Clear (Clear); Urine Color Light-Yellow (Yellow); Urine Glucose TRACE (Negative); Urine Protein 2+ (Negative); Urine Urobilinogen Normal (Normal)
[2022-08-07 04:43] LABS: Specific Gravity > 1.030 (1.005-1.030)
[2022-08-07] MEDS: MORPHINE 4 MG/ML SYR IV PRN ×3 (04:53→20:39)
[2022-08-07] MEDS: ONDANSETRON 4 MG/2 ML VIAL IV PRN (04:53)
[2022-08-07] MEDS: INSULIN -REGULAR HUMAN 50 UNIT/0.5 ML ML SQ SCH ×4 (07:30→20:40)
[2022-08-07] MEDS: lisinopriL 20 MG TAB PO SCH (08:17)
[2022-08-07] MEDS: NA CHLORIDE 0.9% 1,000 ML IV SCH ×2 (09:20→23:40)
--- NOTE | 2022-08-07 11:09 | RAD REPORT ---
EXAM DESCRIPTION: RAD - Chest Single View - 08/07/2022 10:59 am CLINICAL HISTORY: Chest Contusion R/O Pneumothorax COMPARISON: Chest Single View dated 04/10/2022; Chest Single View dated 03/25/2022; Chest Single View dated 11/05/2020; Chest Single View dated 09/16/2020 FINDINGS: Lines: None. Lungs: No evidence of edema or pneumonia. Pleural: No significant pleural effusions or pneumothorax. Cardiac: The heart size is within normal limits. Mediastinum: Within normal limits. Bones: Mildly displaced right posterior fifth rib fracture. Other: None IMPRESSION: Mildly displaced right posterior fifth rib fracture. No pneumothorax identified. The clovis gs are clear.
[2022-08-07] MEDS ORDERED: HYDROCODONE/APAP 7.5/325 MG TAB PO PRN (14:57)
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
--- NOTE | 2022-08-07 17:12 | EKG ---
Test Date: 2022-08-06 Test Time: 17:48:48 [employer] Fusion Developer: RASHID MEASUREMENT RESULTS: Intervals: Rate: 62 CA: 146 QRSD: 92 QT: 432 QTc: 438 [place]: P: 50 CA: 146 QRS: 8 T: 31 INTERPRETIVE STATEMENTS: Normal sinus rhythm Incomplete right bundle branch block Borderline ECG Compared to ECG 03/25/2022 10:39:20 Incomplete right bundle-branch block now present Atrial abnormality no longer present Electronically Signed On 08-07-22 17:09:09 RESOURCE DEVELOPMENT DIRECTOR by Pavel Whipple
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
[2022-08-08 01:01] VITALS: BMI 24.1
[2022-08-08] MEDS: MORPHINE 4 MG/ML SYR IV PRN ×2 (03:05→10:36)
[2022-08-08 03:53] LABS: Absolute Lymphocytes (CBC) 2.4 K/uL (0.7-4.9); Hematocrit 37.4 % (39.6-49.0); Lymphocytes % 24.6 % (15.3-44.8); MPV 8.1 fL (7.6-11.3); RBC Red Blood Cell Count 3.97 M/uL (4.33-5.43)
[2022-08-08 04:08] LABS: Magnesium 1.9 mg/dL (1.6-2.4); Potassium 4.1 mmol/L (3.5-5.1)
[2022-08-08] MEDS: INSULIN -REGULAR HUMAN 50 UNIT/0.5 ML ML SQ SCH ×2 (07:30→12:52)
[2022-08-08] MEDS ORDERED: ASPIRIN EC 81 MG TAB PO SCH (09:00)
[2022-08-08] MEDS ORDERED: ATORVASTATIN 10 MG TAB PO SCH (09:00)
[2022-08-08] MEDS: lisinopriL 20 MG TAB PO SCH (09:14)
[2022-08-08 12:23] VITALS: BP 177/88; TEMP 97.8
--- NOTE | 2022-08-08 13:35 | ECHO ---
HEIGHT: 5 ft 7 in WEIGHT: 154 lb 0 oz DATE OF STUDY: 08/08/[address]: Per Rader MD 2-DIMENSIONAL: YES M.MODE: YES DOPPLER: YES COLOR FLOW: YES TDS: NO PORTABLE: YES DEFINITY: NO BUBBLE STUDY: NO DIAGNOSIS: SVT, TRAUMA, RULE OUT EFFUSION, EVALUTATE FUNCTION CARDIAC HISTORY: CATHERIZATION: NO SURGERY: NO PROSTHETIC VALVE: NO PACEMAKER: NO MEASUREMENTS (cm) DIASTOLIC (NORMALS) SYSTOLIC (NORMALS) IVSd 1.2 (0.6-1.2) LA Diam 3.1 (1.9-4.0) LVEF 55-60% LVIDd 4.4 (3.5-5.7) LVIDs 3.3 (2.0-3.5) %FS 25% LVPWd 1.3 (0.6-1.2) Ao Diam 2.7 (2.0-3.7) 2 DIMENSIONAL ASSESSMENT: RIGHT ATRIUM: NORMAL LEFT ATRIUM: NORMAL RIGHT VENTRICLE: NORMAL LEFT VENTRICLE: NORMAL TRICUSPID VALVE: NORMAL MITRAL VALVE: NORMAL PULMONIC VALVE: NORMAL AORTIC VALVE: NORMAL PERICARDIAL EFFUSION: NONE AORTIC ROOT: NORMAL LEFT VENTRICULAR WALL MOTION: NORMAL DOPPLER/COLOR FLOW: SEE BELOW. COMMENTS: 1. NORMAL LEFT VENTRICULAR EJECTION FRACTION 55-60%. 2. NORMAL WALL MOTION. 3. NORMAL DIASTOLIC FUNCTION. 4. TRACE TRICUSPID REGURGITATION. 5. TRACE MITRAL REGURGITATION. TECHNOLOGIST: Elizabeth MOREL
--- NOTE | 2022-08-08 14:57 | P.PN ---
Date of Service: 08/08/22 Subjective: SVT for ~1-2 minutes last night no further episodes feels better rib pain ongoing, medication helps ROS: 10 point ROS as noted above, otherwise negative Physical exam GEN: Alert, oriented, NAD HEENT: Normal conjunctiva, sclera anicteric CV: Regular rate and rhythm, no edema Pulm: Nonlabored respirations on room air ABD: Soft, nontender, nondistended MSK: tenderness on palpation of ribs Neuro: Normal speech, normal affect Problem List Multiple displaced rib fractures SVT Diabetes mellitus type 2insulin-dependent Hypertension GERD No further SVT episodes. Given trauma and rib fractures, obtained echocardiogram to r/o pericardial effusion. Echo without pericardial effusion, no significant changes/findings. Ok to discharge home when cleared by Dr. López resume home meds as previously prescribed.
--- NOTE | 2022-08-09 07:52 | EKG ---
Test Date: 2022-08-07 Test Time: 23:28:34 Secured Entrance Monitor: EVERARDO MEASUREMENT RESULTS: Intervals: Rate: 74 HI: 140 QRSD: 94 QT: 396 QTc: 439 [place]: P: 75 HI: 140 QRS: 5 T: 20 INTERPRETIVE STATEMENTS: Normal sinus rhythm Nonspecific ST abnormality Abnormal ECG Compared to ECG 08/06/2022 17:48:48 ST (T wave) deviation now present Incomplete right bundle-branch block no longer present Electronically Signed On 08-09-22 07:50:57 CAP INSPECTOR by Pavel Whipple
[2022-08-09] MEDS ORDERED: lisinopriL 20 MG TAB PO SCH (09:00)
== END 2022-08-08 16:29 | disposition home or self-care (01) | DRG 988 ==
LOC: ER 15:43 → ERHOLD 19:48 → 2ND 21:06
PROVIDERS: ADMIT Surgery; ATTEND Surgery
PROC: 0JQP0ZZ Repair Left Lower Leg Subcutaneous Tissue and Fascia, Open Approach (ICD-10-PCS; principal; 2022-08-06)
DX: S22.43XA Multiple fractures of ribs, bilateral, initial encounter for closed fracture (principal); I47.1 Supraventricular tachycardia; S81.012A Laceration without foreign body, left knee, initial encounter; S00.03XA Contusion of scalp, initial encounter; V23.09XA Other motorcycle driver injured in collision with car, pick-up truck or van in nontraffic accident, initial encounter; Y92.89 Other specified places as the place of occurrence of the external cause; E11.9 Type 2 diabetes mellitus without complications; I10 Essential (primary) hypertension; E78.5 Hyperlipidemia, unspecified; E78.00 Pure hypercholesterolemia, unspecified; K21.9 Gastro-esophageal reflux disease without esophagitis; Z79.4 Long term (current) use of insulin; Z79.82 Long term (current) use of aspirin; Z79.899 Other long term (current) drug therapy; Z88.8 Allergy status to other drugs, medicaments and biological substances; Z89.511 Acquired absence of right leg below knee; Z90.49 Acquired absence of other specified parts of digestive tract; Z83.3 Family history of diabetes mellitus; Z82.0 Family history of epilepsy and other diseases of the nervous system
CPT/HCPCS: 36415; 70450; 71045; 71260; 72125; 74177; 80048; 81001; 82947; 83735; 85025; 87811; 93005; 93306; 96374; 96375; 99285; J1815; J2001; J2405; J3010; J7030; Q9967